=== PATIENT | female | born 1950 | race Caucasian/White ===

== ENCOUNTER 2016-06-30 16:25 | Outpatient (RCR) | payer OTHER, MEDICARE ==
--- OUTSIDE RECORDS SUMMARY | 2016-06-02 09:43 | XMS REPORT | Continuity of Care Document ---
Author Author [facility] Organization [facility] Address Unknown Phone Unavailable Care Team Providers Care Nuclear Supervising Operator Name Role Phone ABIMBOLA COURTNEY MD PCP Insurance Providers Payer Name Policy Number Subscriber Name Relationship [facility] [id number] Leah Jordan 18 Self / Same As Patient Advance Directives Directive Response Recorded Date/Time Advance Directives No 10/01/14 3:59pm Health Care Power of Project Intern No 10/01/14 3:59pm Organ Donor No 10/01/14 3:59pm Resuscitation Status Full Code 10/01/14 3:59pm Problems Medical Problems Problem Onset Date Status Hypoglycemia associated with diabetes Unknown Active Medications Medication Dose Route Sig Days/Qty Instructions Order Date Discontinued Date Status Pioglitazone HCl 30 Mg PO DAILY 09/03/07 10/01/14 Discontinued Levothyroxine Sodium (Levothroid) 100 Mcg PO DAILY 09/03/07 Active Metformin HCl (Glucophage) 500 Mg PO TWICE A DAY RESTART ON 11/26/1009/07 Active Hydrochlorothiazide 25 Mg PO DAILY 09/03/07 Active Aspirin 81 Mg PO DAILY 09/03/07 11/25/10 Discontinued Calcium Carbonate/Vitamin D3 1,200 Mg PO DAILY 11/24/10 Active Echinacea 380 Mg PO DAILY 11/24/10 02/23/11 Discontinued Insulin Determir 14 Unit SQ DAILY 11/24/10 Active Metoprolol Succinate 100 Mg PO DAILY 11/24/10 Active Atorvastatin Calcium 10 Mg PO DAILY 11/25/10 02/23/11 Discontinued Aspirin 325 Mg PO DAILY 11/25/10 02/23/11 Discontinued Aspirin 325 Mg PO DAILY 02/23/11 10/01/14 Discontinued Simvastatin 40 Mg PO DAILY 02/23/11 01/08/13 Discontinued Gabapentin 300 Mg PO TWICE A DAY 11/22/11 01/08/13 Discontinued Multivitamin 1 Each PO 01/08/13 Active Potassium Gluconate 99 Mg PO DAILY 01/08/13 Active Gabapentin Enacarbil 600 Mg PO 01/08/13 10/01/14 Discontinued Insulin Detemir 10 U SQ BEDTIME 10/01/14 Active Insulin Glulisine 8 U SQ BEFORE MEALS 10/01/14 Active Social History Social History Problem Response Recorded Date/Time Alcohol Use Rarely Uses 10/01/2014 3:59pm Recreational Drug Use No 10/01/2014 3:59pm Recent Foreign Travel No 10/01/2014 3:56pm Recent Infectious Disease Exposure No 10/01/2014 3:56pm Smoking Status Former Smoker 10/01/2014 3:59pm Query Response Start Date Stop Date Smoking Status Former Smoker Hospital Discharge Instructions No hospital discharge instructions. Plan of Care No plan of care. Functional Status No functional status results. Allergies, Adverse Reactions, Alerts Allergen Type Severity Reaction Status Last Updated Penicillins ([id number]) Allergy Severe RASH Active 09/03/07 Sulfa (Sulfonamide Antibiotics) ([id number]) Allergy Severe RASH Active Cephalexin Allergy Mild RASH Active 09/03/07 Immunizations No immunization records. Vital Signs Acute Vital Signs Vital Response Date/Time Temperature (Fahrenheit) 98 degrees F (97.6 - 99.5) Temperature (Calculated Celsius) 36.6696 degrees C (36.4 - 37.5) Pulse Rate (adult) 64 bpm (60 - 90) Respiratory Rate 18 bpm (12 - 24) O2 Sat by Pulse Oximetry 96 % (88 - 100) Blood Pressure 115/65 mm Hg Pain Pain Intensity 0 Height (Feet) 5 feet Height (Inches) 4 inches Height (Calculated Centimeters) 162.793659 cm Weight (Pounds) 167 pounds Weight (Calculated Kilograms) 75.014051 kilograms Calculated BMI 28.66 Results Laboratory Results Test Name Result Units Flags Reference Collection Date/Time Result Date/ Time Comments Glucometer 290 MG/DL H 70-110 10/01/2014 4:42pm 10/01/2014 4:50pm Procedures No known history of procedures. Encounters Encounter Location Date/Time Departed Emergency Room [facility] 10/01/14 3:39pm Recent Diagnosis
[~2016-06-30 16:25] MED LIST: ASP325T PO; ASP81CT PO; ASPI-983 PO; ASPI325T32 PO; ATN50T; ATOR10TA PO; ATRV10T PO; CALC-97 PO; ECHI400C3 PO; FENTANYL PATCH; GABA-488 PO; GABA-726 PO; GBPN300C PO; HCT25T PO; INSU100I5 SQ; INSU100V5 SQ; INSU100V7 SQ; KETO-22 PO; LVT.1T PO; MTF500T PO; MTP100TCR PO; MULT-974 PO; MULT1TAB63; PANT40TA2 PO; PGLT30T PO; POTA99TA18 PO; SIMV40TA4 PO; SUMA1TAB PO
== END 2016-07-06 16:56 | disposition home or self-care (01) ==
PROVIDERS: ATTEND Orthopaedic Surgery
DX: S42.301D Unspecified fracture of shaft of humerus, right arm, subsequent encounter for fracture with routine healing (principal); M25.642 Stiffness of left hand, not elsewhere classified

== ENCOUNTER → 2016-08-15 | Outpatient (CLI) | payer OTHER, MEDICARE ==
[~2016-08-15] MED LIST changes: +ATOR10TA66 PO; +HYDR25TA4 PO; +INSU100I29 SQ; +LEVO100T7 PO; +METO-274 PO; +PANT40TA3 PO; +SUCR1TAB PO
--- OUTSIDE RECORDS SUMMARY | 2016-08-15 07:36 | XMS REPORT | Continuity of Care Document ---
Author Author [facility] Organization [facility] Address Unknown Phone Unavailable Care Team Providers Care Anatomy And Physiology Instructor Name Role Phone ABIMBOLA COURTNEY MD PCP Insurance Providers Payer Name Policy Number Subscriber Name Relationship [facility] [id number] Leah Jordan 18 Self / Same As Patient Wps Medicare [id number] Leah Jordan 18 Self / Same As Patient Advance Directives Directive Response Recorded Date/Time Advance Directives No 06/08/16 7:15pm Health Care Power of Pond Tender No 06/08/16 7:15pm Organ Donor No 06/08/16 [...] more per day Avoid Alcohol, Caffeine, Spicy [place] and Acid foods. Drink 64 fluid oz [...] Type Severity Reaction Status Last Updated Penicillins ([id number]) Allergy Severe RASH Active 09/03/07 Sulfa (Sulfonamide Antibiotics) ([id number]) Allergy Severe RASH Active Cephalexin Allergy Mild RASH Active 09/03/07 Immunizations No immunization records. Vital Signs Acute Vital Signs Vital Response Date/Time Temperature (Fahrenheit) 96.5 degrees F (97.6 - 99.5) 06/11/2016 10:50am Temperature (Calculated Celsius) 35.02634 degrees C (36.4 - 37.5) 06/11/2016 8:00am [...] 4.00 inches 06/08/2016 7:15pm Height (Calculated Centimeters) 162.021479 cm 06/08/2016 7:15pm Weight (Pounds) 178 pounds 06/11/2016 6:00am Weight (Ounces) 9.0 oz 06/10/2016 5:39am Weight (Calculated Grams) 46699.443 gm 06/11/2016 6:00am Weight (Calculated Kilograms) 80.423491 kilograms 06/11/2016 6:00am Calculated BMI 28.7 06/08/2016 7:15pm Capillary Refill Capillary Refill Less Than 3 Seconds 06/10/2016 8:00pm Results Pending Laboratory Results Test Name Collection Date/Time Pending Microbiology Results Procedure Source Collection Date/Time Procedures Procedure Status Date Provider(s) Esophagogastroduodenoscopy (EGD) with dilation Completed 06/09/16 MACHELLE JAIN MD Encounters Encounter Location Arrival/Admit Date Discharge/Depart Date Attending Provider Discharged Inpatient [facility] [address] 06/08/16 6:56pm 10:56am MACHELLE JAIN MD Registered Recurring [facility] [address] 06/07/16 4:29pm DARY DUPONT MD
--- NOTE | 2016-08-15 13:19 | ECHOCARDIOGRAPHY REPORT ---
PROCEDURE PHYSICIAN: MADISYN JACOBO DATE OF PROCEDURE: 08/15/2016 TWO DIMENSIONAL ECHOCARDIOGRAM REPORT PRIMARY PHYSICIAN: OTHER PHYSICIAN: REFERRING PHYSICIAN: Dr. Abel ORDERING PHYSICIAN: INDICATION FOR THE PROCEDURE: 1. Aortic valve stenosis. 2. Coronary artery disease. MEASUREMENTS DERIVED VALUES LV DIAMETER (LAX) NORMALS NORMALS Diastolic 3.8 (3.6-5.2) Eject. Fract. 60% (60%+/-6%) Systolic (2.3-3.9) Diastolic Vol. % Shortening (0.22-0.42) Systolic Vol. Aortic Root IVS THICKNESS Diastolic 0.8 (0.6-1.1) LVPW THICKNESS Diastolic 1.1 (0.6-1.1) LA DIAMETER Systolic 3 (2.1-3.7) FINDINGS: 1. Technical quality is good. 2. The left ventricle is normal in size with normal contractility. Systolic function appeared to be normal. Estimated ejection fraction 60%. 3. The left atrium is normal in size. No clot or thrombus were seen within the left atrium. 4. The right atrium and right ventricle are normal in size. No clot or thrombus were seen within the right side. 5. Mitral valve is calcified with mild mitral regurgitation noted by color Doppler flow. No mitral valve prolapse. No mitral valve stenosis. 6. Aortic valve is heavily calcified. Doppler across the aortic valve estimated the peak gradient of 51 mmHg, mean gradient of 30 mmHg. Calculated valve area of 1.3 sq cm, which is moderate aortic valve stenosis. Some deterioration compared to the study of July 2015. 7. Tricuspid valve is normal in morphology with mild tricuspid regurgitation noted by color Doppler flow. Doppler across tricuspid valve estimated pulmonary artery pressure of 25+ right atrial pressure. 8. Pulmonic valve is functioning normally. 9. No pericardial effusion. IN CONCLUSION: 1. Normal left ventricular size and systolic function. Estimated ejection fraction 60%. 2. Moderate aortic valve stenosis, deterioration compared to the study of July 2015. 3. Mild mitral and tricuspid regurgitation. 4. Estimated pulmonary artery pressure of 35 mmHg. Job ID: [id number] Dictated Date: 08/15/2016 11:25:31 Jive Developer Date: 08/15/2016 13:15:48 / isiah
== END ==
LOC: CARD 07:31
PROVIDERS: ATTEND Physician Assistant
DX: I35.0 Nonrheumatic aortic (valve) stenosis (principal); I25.10 Atherosclerotic heart disease of native coronary artery without angina pectoris; I65.23 Occlusion and stenosis of bilateral carotid arteries; K21.9 Gastro-esophageal reflux disease without esophagitis
CPT/HCPCS: 93306

== ENCOUNTER 2016-09-30 16:33 | Outpatient (RCR) | payer OTHER, MEDICARE ==
--- OUTSIDE RECORDS SUMMARY | 2016-07-07 09:17 | XMS REPORT | Continuity of Care Document ---
Author Author [facility] Organization [facility] Address Unknown Phone Unavailable Care Team Providers Care Science Professor Name Role Phone ABIMBOLA COURTNEY MD PCP Insurance Providers Payer Name Policy Number Subscriber Name Relationship [facility] [id number] Leah Jordan 18 Self / Same As Patient Wps Medicare [id number] Leah Jordan 18 Self / Same As Patient Advance Directives Directive Response Recorded Date/Time Advance Directives No 06/08/16 7:15pm Health Care Power of Nuclear Medicine Supervisor No 06/08/16 7:15pm Organ Donor No 06/08/16 7:15pm Resuscitation Status Full Code 06/08/16 7:15pm Problems Active Problems Medical Problem Onset Date Status Hypoglycemia associated with diabetes Unknown Acute Medications Current Home Medications Medication Dose Units Route Directions Days/Qty Instructions Start Date Levothyroxine Sodium (Levothroid) 100 Mcg 100 Mcg Oral Daily Metformin Hcl (Glucophage) 500 Mg 500 Mg Oral Twice A Day 09/03/07 Hydrochlorothiazide 25 Mg 25 Mg Oral Daily 09/03/07 Insulin Determir 100 Unit/1 Ml 12 Unit Sub-Q Daily 11/24/10 Metoprolol Succinate 100 Mg 100 Mg Oral Bedtime 11/24/10 Multivitamin 1 Each 1 Tab Oral Daily 01/08/13 Insulin Detemir 100 U/Ml 10 Units Sub-Q Bedtime 10/01/14 Insulin Glulisine 100 U/Ml 4 Units Sub-Q Before Meals 10/01/14 Atorvastatin Calcium 10 Mg 10 Mg Oral Bedtime 06/09/16 Gabapentin 300 Mg 300 Mg Oral Three Times A Day 06/09/16 Pantoprazole Sodium 40 Mg 40 Mg Oral Daily 90 06/10/16 Past Home Medications Medication Directions Ordered Status Pioglitazone Hcl 30 Mg Tablet, 30 Mg Oral Daily 09/03/07 Discontinued Aspirin 81 Mg Tablet, 81 Mg Oral Daily 09/03/07 Discontinued Calcium Carbonate/Vitamin D3 1 Each Tablet, 1200 Mg Oral Daily 11/24/10 Discontinued Echinacea 400 Mg Capsule, 380 Mg Oral Daily 11/24/10 Discontinued Atorvastatin Calcium 10 Mg Tablet, 10 Mg Oral Daily 11/25/10 Discontinued Aspirin 325 Mg Tab, 325 Mg Oral Daily 11/25/10 Discontinued Aspirin 325 Mg Tabec, 325 Mg Oral Daily 02/23/11 Discontinued Simvastatin 40 Mg Tablet, 40 Mg Oral Daily 02/23/11 Discontinued Gabapentin 300 Mg Cap, 300 Mg Oral Twice A Day 11/22/11 Discontinued Potassium Gluconate 99 Mg Tablet.er, 99 Mg Oral Daily 01/08/13 Discontinued Gabapentin Enacarbil 600 Mg Tab.sr.24h, 600 Mg Oral 01/08/13 Discontinued Aspirin 81 Mg Tablet.dr, 81 Mg Oral Daily 06/09/16 Discontinued Social History Social History Problem Response Recorded Date/Time Alcohol Use Rarely Uses 10/01/2014 3:59pm Recreational Drug Use No 10/01/2014 3:59pm Recent Foreign Travel No 06/08/2016 7:15pm Recent Infectious Disease Exposure No 06/08/2016 7:15pm Hospitalization with Isolation Denies 06/11/2016 12:21pm Smoking Status Former Smoker 06/08/2016 7:15pm Recent Hopitalizations Y 1990 06/08/2016 7:15pm Hospitalization with Isolation Denies 06/11/2016 12:21pm Query Response Start Date Stop Date Smoking Status Former Smoker Hospital Discharge Instructions Patient Instructions Physician Instructions New, Converted, or Re-Newed RX: RX on Chart Follow Up PRN Activity as tolerated add protonix 40mg daily High Fiber Diet 25g or more per day Avoid Alcohol, Caffeine, Spicy [place] and Acid foods. Drink 64 fluid oz or more of fluids per day. Symptoms to Report: Fever over 101 degree F, Nausea/Vomiting If any problems/questions: Contact your physician or go to Emergency Room Plan of Care Discharge Date 06/11/16 10:56am Disposition 01 HOME, SELF-CARE Instructions/Education Provided Gastric Ulcer (DC) Prescriptions See Medication Section Care Plan and Goals See Discharge Instructions Section Functional Status Query Response Date Recorded Patient Orientation Person Place Time Situation June 11, 2016 12:21pm Comprehension Ability Understands Concepts June 10, 2016 8:00pm Allergies, Adverse Reactions, Alerts Allergen Type Severity Reaction Status Last Updated Penicillins ([id number]) Allergy Severe RASH Active 09/03/07 Sulfa (Sulfonamide Antibiotics) ([id number]) Allergy Severe RASH Active Cephalexin Allergy Mild RASH Active 09/03/07 Immunizations No immunization records. Vital Signs Acute Vital Signs Vital Response Date/Time Temperature (Fahrenheit) 96.5 degrees F (97.6 - 99.5) 06/11/2016 10:50am Temperature (Calculated Celsius) 35.35909 degrees C (36.4 - 37.5) 06/11/2016 8:00am Temperature Source Tympanic 06/11/2016 10:50am Pulse Rate (adult) 91 bpm (60 - 90) 06/11/2016 10:50am Respiratory Rate 18 bpm (12 - 24) 06/11/2016 10:50am O2 Sat by Pulse Oximetry 99 % (88 - 100) 06/11/2016 10:50am Blood Pressure 111/60 mm Hg 06/11/2016 10:50am Blood Pressure Mean 77 mm Hg 06/11/2016 8:00am Pain Numeric Pain Scale 0-No Pain 06/11/2016 10:50am Height (Feet) 5 feet 06/08/2016 7:15pm Height (Inches) 4.00 inches 06/08/2016 7:15pm Height (Calculated Centimeters) 162.150686 cm 06/08/2016 7:15pm Weight (Pounds) 178 pounds 06/11/2016 6:00am Weight (Ounces) 9.0 oz 06/10/2016 5:39am Weight (Calculated Grams) 80296.443 gm 06/11/2016 6:00am Weight (Calculated Kilograms) 80.170387 kilograms 06/11/2016 6:00am Calculated BMI 28.7 06/08/2016 7:15pm Capillary Refill Capillary Refill Less Than 3 Seconds 06/10/2016 8:00pm Results Pending Laboratory Results Test Name Collection Date/Time Pending Microbiology Results Procedure Source Collection Date/Time Procedures Procedure Status Date Provider(s) Esophagogastroduodenoscopy (EGD) with dilation Completed 06/09/16 MACHELLE JAIN MD Encounters Encounter Location Arrival/Admit Date Discharge/Depart Date Attending Provider Discharged Inpatient [facility] 06/08/16 6:56pm 10:56am MACHELLE JAIN MD Registered Recurring [facility] 06/07/16 4:29pm DARY DUPONT MD
[~2016-09-30 16:33] MED LIST changes: -ATOR10TA66 PO; -HYDR25TA4 PO; -INSU100I29 SQ; -LEVO100T7 PO; -METO-274 PO; -PANT40TA3 PO; -SUCR1TAB PO
[2016-10-03] MEDS ORDERED: SUCR1TAB PO (14:35)
[2016-10-03] MEDS ORDERED: LEVO100T7 PO (14:35)
[2016-10-03] MEDS ORDERED: HYDR25TA4 PO (14:35)
[2016-10-03] MEDS ORDERED: PANT40TA3 PO (14:35)
[2016-10-03] MEDS ORDERED: INSU100I29 SQ (14:35)
[2016-10-03] MEDS ORDERED: ATOR10TA66 PO (14:35)
[2016-10-03] MEDS ORDERED: METO-274 PO (14:35)
== END 2016-10-05 | disposition home or self-care (01) ==
PROVIDERS: ATTEND Orthopaedic Surgery
DX: S42.301D Unspecified fracture of shaft of humerus, right arm, subsequent encounter for fracture with routine healing (principal); M25.642 Stiffness of left hand, not elsewhere classified

== ENCOUNTER 2016-10-03 06:02 | Inpatient (IN) | payer OTHER, MEDICARE ==
[~2016-10-03] VITALS: Ht 162.6 cm; Wt 74.6 kg
[2016-10-03 06:30] LABS: BASOPHILS % (AUTO) 0 % (0-10); EOSINOPHILS # (AUTO) 0.1 10^3/uL (0.0-0.3); EOSINOPHILS % (AUTO) 1 % (0-10); LYMPHOCYTES # (AUTO) 2.3 X 10^3 (1.0-4.0); LYMPHOCYTES % (AUTO) 24 % (12-44); MEAN CORPUSCULAR HEMOGLOBIN 26 PG (25-34); MEAN CORPUSCULAR HGB CONC 33 G/DL (32-36); MEAN CORPUSCULAR VOLUME 78 FL (80-99); MEAN PLATELET VOLUME 9.5 FL (7.4-10.4); MONOCYTES # (AUTO) 0.7 X 10^3 (0.0-1.0); MONOCYTES % (AUTO) 8 % (0-12); NEUTROPHILS # (AUTO) 6.4 X 10^3 (1.8-7.8); NEUTROPHILS % (AUTO) 68 % (42-75); PLATELET COUNT 377 10^3/uL (130-400); RED BLOOD COUNT 4.75 10^6/uL (4.35-5.85); RED CELL DISTRIBUTION WIDTH 20.5 % (10.0-14.5); WHITE BLOOD COUNT 9.5 10^3/uL (4.3-11.0)
[2016-10-03] MEDS: LACTATED RINGERS 1,000 ML IV SCH ×2 (06:34→08:30)
--- NOTE | 2016-10-03 06:38 | ED General ---
General Chief Complaint: Glucose Problems Stated Complaint: BLOOD SUGAR Nursing Triage Note: PT TO ED 6 W/ C/O WEAKNESS, INCREASED CONFUSION X2-3 WKS. PT REPORTS SHE HAS NOT FELT WELL ET HAS BEEN UNABLE TO SEE PCP SHE STATES SHE CANNOT TAKE TIME OFF FROM WORK "EVERYONE'S BEEN GONE." STATES SHE'S UNSURE IF SHE IS EATING OR DRINKING ENOUGH, TAKING HER MEDICATION LIKE SHE SHOULD. PT VERY TEARFUL Nursing Sepsis Screen: No Definite Risk Source of Information: Patient Exam Limitations: No Limitations History of Present Illness Time Seen by Provider: 06:32 Initial Comments This 66-year-old white female presents with confusion and weakness that has been progressive over the last 2-3 weeks. The patient denies fever, chills, dysuria, productive cough, headache or stiff neck, or lateralizing or localizing neurologic complaints. However this diabetic and has felt confused and has had to search for words. 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 The patient has had a history of coronary artery disease. She denies chest pain or palpitations with her present illness. The patient believes that her fluid and caloric intake may have been impaired during the last 2-3 weeks due to her heavy work schedule. Allergies and Home Medications Allergies Coded Allergies: Penicillins (Unverified Allergy, Severe, RASH, 09/03/07) pt reports generalized edema to the point pt can't make a fist Sulfa (Sulfonamide Antibiotics) (Unverified Allergy, Severe, RASH, 09/03/07) severe generalized edema cephalexin (Unverified Allergy, Mild, RASH, 09/03/07) Home Medications Atorvastatin Calcium 10 Mg Tablet, 10 MG PO HS, (Reported) Gabapentin 300 Mg Capsule, 300 MG PO TID, (Reported) Hydrochlorothiazide 25 Mg Tablet, 25 MG PO DAILY, (Reported) Insulin Detemir 100 U/Ml Vial, 10 UNITS SQ HS, (Reported) Insulin Determir 100 Unit/1 Ml Insuln.pen, 12 UNIT SQ DAILY, (Reported) Insulin Glulisine 100 U/Ml Vial, 4 UNITS SQ AC, (Reported) Levothyroxine Sodium 100 Mcg Tablet, 100 MCG PO DAILY, (Reported) Metformin Hcl 500 Mg Tablet, 500 MG PO BID, (Reported) Metoprolol Succinate 100 Mg Tab.sr.24h, 100 MG PO HS, (Reported) Multivitamin 1 Each Tablet, 1 TAB PO DAILY, (Reported) Pantoprazole Sodium 40 Mg Tablet.dr, 40 MG PO DAILY, #90 Prescribed by: MACHELLE JAIN on 06/10/16 1252 Constitutional: No chills EENTM: blurred vision Respiratory: No cough Cardiovascular: No chest pain, No palpitations Gastrointestinal: No abdominal pain, No nausea, No vomiting Genitourinary: No dysuria, No frequency : No Musculoskeletal: No back pain Skin: No rash Psychiatric/Neurological: No Symptoms Reported Hematologic/Lymphatic: No Symptoms Reported Immunological/Allergic: no symptoms reported Past Sygwrfp-Emjgpv-Zygtie Hx Patient Social History Alcohol Use: Denies Use Recreational Drug Use: No Smoking Status: Former Smoker Recent Foreign Travel: No Contact w/Someone Who Travel: No Recent Infectious Disease Expo: No Recent Hopitalizations: Yes (1989) Immunizations Up To Date Tetanus Booster (TDap): Less than 5yrs PED Vaccines UTD: No Date of Influenza Vaccine: May 02, 2016 Surgeries HX Surgeries: Yes (appendectomy and gallbladder, GASTROPLASTY) Surgeries: Appendectomy, Coronary Stent, Gallbladder, Orthopedic Respiratory Hx Respiratory Disorders: No Cardiovascular Hx Cardiac Disorders: Yes (CARDIOVASCULAR DZ, STENTS) Cardiac Disorders: Coronary Artery Disease, Heart Murmur, Hypertension Neurological Hx Neurological Disorders: No Reproductive System Hx Reproductive Disorders: No Genitourinary Hx Genitourinary Disorders: No Gastrointestinal Hx Gastrointestinal Disorders: Yes Gastrointestinal Disorders: Gastroesophageal Reflux Musculoskeletal Hx Musculoskeletal Disorders: No Endocrine Hx Endocrine Disorders: Yes Endocrine Disorders: Diabetes, Insulin dep HEENT HX ENT Disorders: Yes (LEFT EYE REMOVED) Cancer Hx Cancer: No Psychosocial Hx Psychiatric Problems: No Integumentary HX Skin/Integumentary Disorder: No Blood Transfusions Hx Blood Disorders: No Reviewed Nursing Assessment Reviewed/Agree w Nursing PMH: Yes Family Medical History Family Medial History: Breast lump 19 MOTHER, Onset:Unknown Cardiovascular disease 19 FATHER, , Age:88, Onset:Unknown FH: hypothyroidism 19 MOTHER, Onset:Unknown FH: renal failure 19 MOTHER, Onset:Unknown Heart murmur 19 MOTHER, Onset:Unknown Prostatitis 19 FATHER, , Age:88, Onset:Unknown Physical Exam Vital Signs Vital Sign - Last 12Hours 10/03/16 06:02 Temp 97.1 Pulse 138 Resp 20 B/P (MAP) 128/80 Pulse Ox 97 O2 Delivery Room Air Capillary Refill : Less Than 3 Seconds General Appearance: Anxious, Mild Distress Eyes: Bilateral Eye Other (patient is wearing a patch over her left eye) HEENT: Pharynx Normal Neck: Full Range of Motion, Normal Inspection Respiratory: Chest Non Tender, Lungs Clear, Normal Breath Sounds Cardiovascular: Regular Rate, Rhythm, No Edema, No Murmur Gastrointestinal: Normal Bowel Sounds, Non Tender, Soft Extremity: Normal Inspection, Normal Range of Motion Neurologic/Psychiatric: Oriented x3, No Motor/Sensory Deficits, property man II-XII Norm as Tested, Other (the patient's speech is somewhat slow and the patient missed spoke several words on history taking. The patient did not have slurred speech.) Skin: Normal Color, Warm/Dry Progress/Results/Core Measures Results/Orders Lab Results Laboratory Tests Test 10/03/16 06:15 10/03/16 06:16 Range/Units White Blood Count 9.5 4.3-11.0 10^3/uL Red Blood Count 4.75 4.35-5.85 10^6/uL Hemoglobin 12.2 11.5-16.0 G/DL Hematocrit 37 35-52 % Mean Corpuscular Volume 78 L 80-99 FL Mean Corpuscular Hemoglobin 26 25-34 PG Mean Corpuscular Hemoglobin Concent 33 32-36 G/DL Red Cell Distribution Width 20.5 H 10.0-14.5 % Platelet Count 377 130-400 10^3/uL Mean Platelet Volume 9.5 7.4-10.4 FL Neutrophils (%) (Auto) 68 42-75 % Lymphocytes (%) (Auto) 24 12-44 % Monocytes (%) (Auto) 8 0-12 % Eosinophils (%) (Auto) 1 0-10 % Basophils (%) (Auto) 0 0-10 % Neutrophils # (Auto) 6.4 1.8-7.8 X 10^3 Lymphocytes # (Auto) 2.3 1.0-4.0 X 10^3 Monocytes # (Auto) 0.7 0.0-1.0 X 10^3 Eosinophils # (Auto) 0.1 0.0-0.3 10^3/uL Basophils # (Auto) 0.0 0.0-0.1 10^3/uL Sodium Level 136 135-145 MMOL/L Potassium Level 3.2 L 3.6-5.0 MMOL/L Chloride Level 97 L 98-107 MMOL/L Carbon Dioxide Level 21 21-32 MMOL/L Anion Gap 18 H 5-14 MMOL/L Blood Urea Nitrogen 18 7-18 MG/DL Creatinine 0.99 0.60-1.30 MG/DL Estimat Glomerular Filtration Rate 56 BUN/Creatinine Ratio 18 Glucose Level 466 *H 70-105 MG/DL Hemoglobin A1c 8.9 H 4.5-6.2 % Calcium Level 9.6 8.5-10.1 MG/DL Total Bilirubin 0.5 0.1-1.0 MG/DL Aspartate Amino Transf (AST/SGOT) 15 5-34 U/L Alanine Aminotransferase (ALT/SGPT) 10 0-55 U/L Alkaline Phosphatase 80 40-136 U/L Troponin I < 0.30 <0.30 NG/ML Total Protein 7.3 6.4-8.2 G/DL Albumin 4.1 3.2-4.5 G/DL Lipase < 4 L 8-78 U/L Glucometer 438 *H 70-110 MG/DL My Orders Orders - ARETHA CONCEPCION MD Arterial Blood Gas (10/03/16 06:21) Cbc With Automated Diff (10/03/16 06:21) Comprehensive Metabolic Panel (10/03/16 06:21) Lipase (10/03/16 06:21) Urinalysis (10/03/16 06:21) Chest 1 View, Ap/Pa Only (10/03/16 06:21) Ekg Tracing (10/03/16 06:21) Troponin I (10/03/16 06:21) Hemoglobin A1c (10/03/16 06:21) Ct Head Wo (10/03/16 06:21) Lactated Ringers (Lr 1000 Ml Iv Solution (10/03/16 06:30) Ondansetron Injection (Zofran Injectio (10/03/16 06:45) Ondansetron Injection (Zofran Injectio (10/03/16 07:00) Ns Iv 1000 Ml (Sodium Chloride 0.9%) (10/03/16 07:15) Insulin Regular Tpn/Drip Only (Humulin R (10/03/16 07:15) Lorazepam Injection (Ativan Injection) (10/03/16 07:30) Medications Given in ED Current Medications Medications Dose Ordered Sig/Rhianna Route Start Time Stop Time Status Last Admin Dose Admin Ondansetron HCl 4 mg STK-MED ONCE .ROUTE 10/03/16 06:45 10/03/16 06:47 DC 10/03/16 06:50 4 MG Vital Signs/I&O Vital Sign - Last 12Hours 10/03/16 06:02 Temp 97.1 Pulse 138 Resp 20 B/P (MAP) 128/80 Pulse Ox 97 O2 Delivery Room Air Blood Pressure Mean: 96 Point of Care Testing Finger Stick Blood Glucose: 438 Blood Glucose Action Taken: RN and Dr notified Progress Note : Time: 06:40 Progress Note The patient's bedside glucose was approximately 425. A liter of lactated Ringer 's as a bolus of 500 mL an hour was established. The patient's EKG demonstrated sinus tachycardia but no acute current of injury. 735 a.m. The patient is improved with IV fluids. Her resting tachycardia which had been 125 is now down to a little over 100. The patient is more awake and alert. I initiated an insulin drip per protocol. Patient received IV Zofran for nausea. I gave the patient Ativan as she is quite tearful and anxious. Dr. Duke was kind enough to admit the patient to telemetry stepdown. Drs. Zelaya and Tonia have been consulted. I'm awaiting the patient's ABGs, CT of the head report, and her response to the fluids and insulin drip. I ordered an additional 1/2 L of normal saline in the unit over the next 3 hours. I'll ask for hourly glucoses bedside determinations until the patient's hyperglycemia is resolved. Critical Care Note Critical Care Start Time: 06:45 Stop Time: 07:30 Total Time (minutes) The patient was tachycardic and confused upon presentation. Patient had her hyperglycemia acutely treated with fluids and an insulin drip. Initial laboratory radiographic evaluation demonstrated a normal lipase and unremarkable chest x-ray. Patient's EKG demonstrated sinus tach and she had a normal troponin. With IV fluid bolus the patient's tachycardia began to [place] while in the emergency department. Patient was admitted on an insulin drip to cardiac stepdown with telemetry. Departure Communication Time/Spoke to Admitting Phy: 07:[address] Duke Time/Spoke to Consulting Physi: 07:41 Communication/Consulting Drs. Zelaya and Tonia. Family Conversation The patient has had a number of recent stresses in her life w the of her , a fractured arm, and UGI bleed. She is very tearful and anxious. I believe she may have sig depression/anxiety that needs to be addressed. Impression Impression: Primary Impression: Diabetes mellitus Qualified Codes: E10.65 - Type 1 diabetes mellitus with hyperglycemia Additional Impression: Hyperglycemia Disposition: ADMITTED INPATIENT Condition: Improved Decision to Admit Reason: Admit from ER (General) Decision to Admit/Date: Oct 03, 2016 Time/Decision to Admit Time: 07:45 Departure-Patient Inst. Referrals: DARY DUPONT MD (PCP) Primary Care Physician ARETHA CONCEPCION MD Oct 03, 2016 06:38
[2016-10-03 06:45] LABS: ALANINE AMINOTRANSFERASE 10 U/L (0-55); ALBUMIN 4.1 G/DL (3.2-4.5); ANION GAP 18 MMOL/L (5-14); ASPARTATE AMINO TRANSFERASE 15 U/L (5-34); BILIRUBIN,TOTAL 0.5 MG/DL (0.1-1.0); BLOOD UREA NITROGEN 18 MG/DL (7-18); BUN/CREATININE RATIO 18; CALCIUM 9.6 MG/DL (8.5-10.1); CARBON DIOXIDE 21 MMOL/L (21-32); CHLORIDE 97 MMOL/L (98-107); CREATININE SERUM 0.99 MG/DL (0.60-1.30); GFR ESTIMATED 56; LIPASE < 4 U/L (8-78); POTASSIUM 3.2 MMOL/L (3.6-5.0); SODIUM 136 MMOL/L (135-145); TOTAL PROTEIN 7.3 G/DL (6.4-8.2)
[2016-10-03] MEDS ORDERED: ONDANSETRON 4 MG/2 ML (SDV) Z0FRAN ONE (06:45)
[2016-10-03 06:50] LABS: GLUCOSE 466 MG/DL (70-105)
[2016-10-03 06:51] LABS: TROPONIN I < 0.30 NG/ML (<0.30)
[2016-10-03] MEDS ORDERED: ONDANSETRON 4 MG/2 ML (SDV) Z0FRAN IVP ONE (07:00)
--- NOTE | 2016-10-03 07:01 | Diagnostic Imaging Report ---
INDICATION: Weakness and confusion x3 weeks. TECHNIQUE: Single view chest 6:29 a.m. CORRELATION STUDY: 06/10/2016. FINDINGS: The heart size, mediastinal configuration and pulmonary vascularity are within normal limits. Calcification of the aortic arch. Lung ortega mildly hyperinflated but relatively clear. Partial visualization of the fusion hardware of the proximal left humerus. IMPRESSION: 1. Negative acute findings on portable chest. Dictated by: Dictated on workstation # [id number]
[2016-10-03] MEDS ORDERED: inSUlin REGULAR TPN/DRIP ONLY 250 UNITS in NORMAL SALINE 247.5 ML IV SCH (07:15)
[2016-10-03] MEDS ORDERED: LORazepam INJ 2 MG/ML (ATIVAN) VIAL IVP ONE (07:30)
[2016-10-03] MEDS: NS IV 1000 ML 1,000 ML IV SCH ×3 (07:50→10:26)
[2016-10-03 07:54] LABS: ABG BASE EXCESS 1.8 MMOL/L (-2.5-2.5); ABG HCO3 26 MMOL/L (23-27); ABG OXYGEN SATURATION 94 % (94-100); ABG PCO2 39 MMHG (35-45); ABG PH 7.43 (7.37-7.43); ABG PO2 65 MMHG (79-93); ABG TCO2 27.1 MMOL/L (21.0-31.0)
[2016-10-03 07:56] LABS: ALLENS TEST POSITIVE; PATIENT TEMP 97.2
[2016-10-03 09:05] VITALS: BP 153/84
[2016-10-03 09:23] LABS: BILIRUBIN,URINE NEGATIVE (NEGATIVE); KETONES,URINE 4+ (NEGATIVE); LEUKOCYTE ESTERASE ,URINE 1+ (NEGATIVE); NITRITE,URINE POSITIVE (NEGATIVE); PH,URINE 6 (5-9); PROTEIN,URINE NEGATIVE (NEGATIVE); UROBILINOGEN,URINE NORMAL (NORMAL)
[2016-10-03 09:31] LABS: SQUAMOUS EPITHELIAL CELL,UR RARE /HPF
--- NOTE | 2016-10-03 09:37 | Consultation-Cardiology ---
HPI-Cardiology Cardiology Consultation Date of Consultation 10/03/16 Date of Admission Indication: tachycardia HPI 66-year-old lady with history of hypertension, mild coronary artery disease, has been feeling more confused and tired, slower unusual. No focal deficit, has been having nausea and vomiting, increased urinary frequency, came into the emergency room for further evaluation. Noted to be tachycardic. She denied any chest pain, syncope or near syncopal episode, has been having mild chills. No pedal edema. Home Medications & Allergies Allergies: Coded Allergies: Penicillins (Unverified Allergy, Severe, RASH, 09/03/07) pt reports generalized edema to the point pt can't make a fist Sulfa (Sulfonamide Antibiotics) (Unverified Allergy, Severe, RASH, 09/03/07) severe generalized edema cephalexin (Unverified Allergy, Mild, RASH, 09/03/07) Home Medication List Reviewed: Yes JVA-Gepjsa-Xiqmkh Hx Patient Social History Alcohol Use: Denies Use Recreational Drug Use: No Smoking Status: Former Smoker Recent Foreign Travel: No Recent Infectious Disease Expo: No Recent Hopitalizations: Yes (1989) Immunizations Up To Date Tetanus Booster (TDap): Less than 5yrs Date of Influenza Vaccine: May 02, 2016 Past Medical History past medical history as discussed below Family Medical History Family History: 19 FATHER, , Age:88 Cardiovascular disease, Onset:Unknown Prostatitis, Onset:Unknown 19 MOTHER Breast lump, Onset:Unknown FH: hypothyroidism, Onset:Unknown FH: renal failure, Onset:Unknown Heart murmur, Onset:Unknown Constitutional: see HPI, malaise, weakness EENTM: see HPI Respiratory: no symptoms reported, see HPI, No cough, No dyspnea on exertion, No hemoptysis, No orthopnea, No phlegm, No short of breath, No stridor, No wheezing, No other Cardiovascular: see HPI, No chest pain, No edema, No Hx of Intervention, No palpitations, No syncope, No vascular heart diseas, No other Gastrointestinal: see HPI, diarrhea, nausea, vomiting Genitourinary: see HPI, frequency Musculoskeletal: see HPI Skin: see HPI Psychiatric/Neurological: No Symptoms Reported, See HPI, Weakness Reviewed Test Results Reviewed Test Results Lab Laboratory Tests Test 10/03/16 06:15 10/03/16 06:16 10/03/16 07:47 10/03/16 08:46 Range/Units White Blood Count 9.5 4.3-11.0 10^3/uL Red Blood Count 4.75 4.35-5.85 10^6/uL Hemoglobin 12.2 11.5-16.0 G/DL Hematocrit 37 35-52 % Mean Corpuscular Volume 78 L 80-99 FL Mean Corpuscular Hemoglobin 26 25-34 PG Mean Corpuscular Hemoglobin Concent 33 32-36 G/DL Red Cell Distribution Width 20.5 H 10.0-14.5 % Platelet Count 377 130-400 10^3/uL Mean Platelet Volume 9.5 7.4-10.4 FL Neutrophils (%) (Auto) 68 42-75 % Lymphocytes (%) (Auto) 24 12-44 % Monocytes (%) (Auto) 8 0-12 % Eosinophils (%) (Auto) 1 0-10 % Basophils (%) (Auto) 0 0-10 % Neutrophils # (Auto) 6.4 1.8-7.8 X 10^3 Lymphocytes # (Auto) 2.3 1.0-4.0 X 10^3 Monocytes # (Auto) 0.7 0.0-1.0 X 10^3 Eosinophils # (Auto) 0.1 0.0-0.3 10^3/uL Basophils # (Auto) 0.0 0.0-0.1 10^3/uL Sodium Level 136 135-145 MMOL/L Potassium Level 3.2 L 3.6-5.0 MMOL/L Chloride Level 97 L 98-107 MMOL/L Carbon Dioxide Level 21 21-32 MMOL/L Anion Gap 18 H 5-14 MMOL/L Blood Urea Nitrogen 18 7-18 MG/DL Creatinine 0.99 0.60-1.30 MG/DL Estimat Glomerular Filtration Rate 56 BUN/Creatinine Ratio 18 Glucose Level 466 *H 70-105 MG/DL Hemoglobin A1c 8.9 H 4.5-6.2 % Calcium Level 9.6 8.5-10.1 MG/DL Total Bilirubin 0.5 0.1-1.0 MG/DL Aspartate Amino Transf (AST/SGOT) 15 5-34 U/L Alanine Aminotransferase (ALT/SGPT) 10 0-55 U/L Alkaline Phosphatase 80 40-136 U/L Troponin I < 0.30 <0.30 NG/ML Total Protein 7.3 6.4-8.2 G/DL Albumin 4.1 3.2-4.5 G/DL Lipase < 4 L 8-78 U/L Glucometer 438 *H 330 H 70-110 MG/DL Blood Gas Puncture Site RIGHT RADIAL Blood Gas Patient Temperature 97.2 Arterial Blood pH 7.43 7.37-7.43 Arterial Blood Partial Pressure CO2 39 35-45 MMHG Arterial Blood Partial Pressure O2 65 L 79-93 MMHG Arterial Blood HCO3 26 23-27 MMOL/L Arterial Blood Total CO2 27.1 21.0-31.0 MMOL/L Arterial Blood Oxygen Saturation 94 94-100 % Arterial Blood Base Excess 1.8 -2.5-2.5 MMOL/L Lv Test POSITIVE Blood Gas Ventilator Setting NO Blood Gas Inspired Oxygen N/A Test 10/03/16 09:14 Range/Units Urine Color YELLOW Urine Clarity SLIGHTLY CLOUDY Urine pH 6 5-9 Urine Specific [place] 1.020 1.016-1.022 Urine Protein NEGATIVE NEGATIVE Urine Glucose (UA) 4+ H NEGATIVE Urine Ketones 4+ H NEGATIVE Urine Nitrite POSITIVE H NEGATIVE Urine Bilirubin NEGATIVE NEGATIVE Urine Urobilinogen NORMAL NORMAL MG/DL Urine Leukocyte Esterase 1+ H NEGATIVE Urine RBC (Auto) 2+ H NEGATIVE Urine RBC 0-2 /HPF Urine WBC 5-10 H /HPF Urine Squamous Epithelial Cells RARE /HPF Urine Crystals NONE /LPF Urine Bacteria MODERATE H /HPF Urine Casts NONE /LPF Urine Mucus NEGATIVE /LPF Urine Culture Indicated YES Physical Exam Vital Signs Vital Sign - Last 12Hours 10/03/16 06:02 Temp 97.1 Pulse 138 Resp 20 B/P (MAP) 128/80 Pulse Ox 97 O2 Delivery Room Air Capillary Refill : Less Than 3 Seconds General Appearance: No Apparent Distress, WD/WN Eyes: Bilateral Eye EOMI, Bilateral Eye Normal Inspection, Bilateral Eye PERRL HEENT: PERRL/EOMI, TMs Normal, Normal ENT Inspection, Pharynx Normal Neck: Full Range of Motion, Normal Inspection, Non Tender, Supple, Carotid Bruit Respiratory: Chest Non Tender, Lungs Clear, Normal Breath Sounds, No Accessory Muscle Use, No Respiratory Distress Cardiovascular: No Edema, No Gallop, No JVD, Normal Peripheral Pulses, Systolic Murmur, Tachycardia Gastrointestinal: Normal Bowel Sounds, No Organomegaly, No Pulsatile Mass, Non Tender, Soft Back: Normal Inspection, No CVA Tenderness, No Vertebral Tenderness Extremity: Normal Capillary Refill, Normal Inspection, Normal Range of Motion, Non Tender, No Calf Tenderness, No Pedal Edema Neurologic/Psychiatric: Alert, Oriented x3, No Motor/Sensory Deficits, Normal Mood/Affect Skin: Normal Color, Warm/Dry Lymphatic: No Adenopathy A/P-Cardiology Admission Diagnosis Change in mental status Sinus tachycardia Coronary artery disease Aortic valve stenosis Assessment/Plan Change in mental status, generalized weakness and lethargy, no focal deficit was noted. Questionable secondary to hypovolemia. Sinus tachycardia, palpitation, had history of palpitation in the past, could be due to hypovolemia, receiving IV fluid, has been on Toprol as an outpatient. Continue to monitor heart rate and electrolytes closely. Hyperglycemia, difficult to control, managed by primary care physician History of upper GI bleed with gastritis, H&H has been stable. Continue to monitor. Mild to moderate nonobstructive coronary artery disease per cardiac catheterization 2010, stress test in 2013 did not show ischemia or infarction, continue to monitor Moderate aortic valve stenosis, last echocardiogram was done in August 2016, left ventricle size and function was normal, ejection fraction 60 percent. Continue to monitor at this time. History of hyperlipidemia, hold statin for now and monitor lipids. Hypothyroidism, followed and managed by primary care physician. Ex-tobaccoism, encouraged to continue with smoking cessation. Mild bilateral nonobstructive carotid artery stenosis, continue to monitor MADISYN JACOBO MD Oct 03, 2016 09:37
[2016-10-03] MEDS ORDERED: CATHETER FLUSH 10 ML SYR IV PRN (09:45)
[2016-10-03] MEDS: inSUlin (REGULAR) HUMAN 1 UNIT/0.01 ML (CHARGE PER UNIT) SC SCH ×5 (10:25→22:36)
[2016-10-03] MEDS ORDERED: ACETAMINOPHEN 325 MG TABLET/CAPLET (TYLENOL) PO PRN (11:15)
[2016-10-03] MEDS ORDERED: LORazepam INJ 2 MG/ML (ATIVAN) VIAL IV PRN (11:15)
[2016-10-03] MEDS ORDERED: LORazepam 1 MG (ATIVAN) TAB PO PRN (11:15)
[2016-10-03] MEDS ORDERED: ONDANSETRON 4 MG (ZOFRAN) ORAL DISSOLVE TAB PO PRN (11:15)
--- NOTE | 2016-10-03 11:49 | History & Physical-Hospitalist ---
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 She was found to have blood sugar of 466 but normal bicarp so placed on insulin drip and CRX was negative so she has been placed in close monitoring placed on IV fluids and consulting pulmonary and operations systems specialist to further evaluate clinical scenario. Chart Review: No fever, Vitals stable, ABG shows 7.43/39/65, K+ 3.2 Dr. Douglas Review: Pt heartrate is 105-110. TSH has been added to labs. learning support aide: Pt sees Dr. Douglas. Pt is not DKA. Patient Interview: Pt states she is confused currently. Pt was told her blood work looked good. Pt states she feels run down. Pt denies pain currently. Pt states tachycardia earlier caused her some chest pain. Physical exam was stable. Scribed by Josef Rios under the direct supervision of Dr. Bautista. Source: patient Exam Limitations: no limitations Date Seen 10/03/16 Attending Physician Karolina Bautista Floyd R MD Referring Physician Date of Admission Oct 03, 2016 at 07:30 Home Medications & Allergies Home Medications Reviewed patient Home Medication Reconciliation Form Allergies Allergies Coded Allergies Penicillins (Unverified Allergy, Severe, RASH, 09/03/07) pt reports generalized edema to the point pt can't make a fist Sulfa (Sulfonamide Antibiotics) (Unverified Allergy, Severe, RASH, 09/03/07) severe generalized edema cephalexin (Unverified Allergy, Mild, RASH, 09/03/07) Past Iekqpyd-Aiihma-Wrbzuh Hx Patient Social History Marrital Status: Employed/Student: employed Alcohol Use: Denies Use Recreational Drug Use: No Smoking Status: Former Smoker Physical Abuse Screen: No (ex-spouse) Sexual Abuse: No Recent Foreign Travel: No Contact w/other who traveled: No Recent Hopitalizations: Yes (1989) Recent Infectious Disease Expo: No Immunizations Up To Date Tetanus Booster (TDap): Less than 5yrs Date of Influenza Vaccine: May 02, 2016 Surgeries HX Surgeries: Yes (appendectomy and gallbladder, GASTROPLASTY) Surgeries: Appendectomy, Coronary Stent, Gallbladder, Orthopedic Respiratory Hx Respiratory Disorders: No Cardiovascular Hx Cardiovascular Disorders: Yes (CARDIOVASCULAR DZ, STENTS) Cardiac Disorders: Coronary Artery Disease, Heart Murmur, Hypertension Neurological Hx Neurological Disorders: No Reproductive System Hx Reproductive Disorders: No Genitourinary Hx Genitourinary Disorders: No Gastrointestinal Hx Gastrointestinal Disorders: Yes Gastrointestinal Disorders: Gastroesophageal Reflux Musculoskeletal Hx Musculoskeletal Disorders: No Endocrine Hx Endocrine Disorders: Yes Endocrine Disorders: Diabetes, Insulin dep HEENT HX ENT Disorders: Yes (LEFT EYE REMOVED) Cancer Hx Cancer: No Psychosocial Hx Psychiatric Problems: No Integumentary HX Skin/Integumentary Disorder: No Blood Transfusions Hx Blood Disorders: No Reviewed Nursing Assessment Reviewed/Agree w Nursing PMH: Yes Family Medical History Family Hx: Breast lump 19 MOTHER, Onset:Unknown Cardiovascular disease 19 FATHER, , Age:88, Onset:Unknown FH: hypothyroidism 19 MOTHER, Onset:Unknown FH: renal failure 19 MOTHER, Onset:Unknown Heart murmur 19 MOTHER, Onset:Unknown Prostatitis 19 FATHER, , Age:88, Onset:Unknown Review of Systems Constitutional: see HPI, dizziness, malaise, weakness EENTM: no symptoms reported Respiratory: no symptoms reported Cardiovascular: no symptoms reported Gastrointestinal: no symptoms reported Genitourinary: decreased output Musculoskeletal: back pain Skin: no symptoms reported Psychiatric/Neurological: Anxiety, Depressed, Emotional Problems, Weakness Physical Exam Physical Exam Vital Signs Vital Sign - Last 12Hours 10/03/16 10/03/16 06:02 12:01 Temp 97.1 Pulse 138 Resp 20 B/P (MAP) 128/80 Pulse Ox 97 O2 Delivery Room Air O2 Flow Rate 2.00 Capillary Refill : Less Than 3 Seconds General Appearance: No Apparent Distress, WD/WN Eyes: Bilateral Eye Normal Inspection, Bilateral Eye PERRL HEENT: PERRL/EOMI (patch on left eye), Normal ENT Inspection, Pharynx Normal Neck: Full Range of Motion, Normal Inspection, Non Tender, Supple, Carotid Bruit Respiratory: Chest Non Tender, Lungs Clear, Normal Breath Sounds, No Accessory Muscle Use, No Respiratory Distress Cardiovascular: Regular Rate, Rhythm, No Edema, No Gallop, No JVD, No Murmur, Normal Peripheral Pulses Gastrointestinal: Normal Bowel Sounds, No Organomegaly, No Pulsatile Mass, Non Tender, Soft Back: Normal Inspection, No CVA Tenderness, No Vertebral Tenderness Extremity: Normal Capillary Refill, Normal Inspection, Normal Range of Motion, Non Tender, No Calf Tenderness, No Pedal Edema Neurologic/Psychiatric: Alert, Oriented x3, No Motor/Sensory Deficits, Normal Mood/Affect Skin: Normal Color, Warm/Dry Lymphatic: No Adenopathy Results Results/Procedures Lab Laboratory Tests 10/03/16 06:15 Assessment/Plan Admission Diagnosis Assessment: Dehydration with sxc-uw-pympywv diabetes Confusion Tachycardia Left eye deficit Hypertension Assessment and Plan Plan: IV fluid resuscitation Monitor closely Telemetry Prepare for discharge tomorrow as long as no deficits occur in the meantime Clinical Quality Measures DVT/VTE Risk/Contraindication: Risk Factor Score Per Nursin RFS Level Per Nursing on Admit: 4+=Very High KAROLINA BAUTISTA DO Oct 03, 2016 11:49
[2016-10-03] MEDS ORDERED: NS IV 1000 ML 1,000 ML IV SCH (12:15)
--- NOTE | 2016-10-03 12:52 | Pulmonary Consultation ---
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 she has not been laking diabetic meds as RX. She was found to have BS of 466 she was placed on insulin gtt. I am consulted for ICU management. Allergies and Home Medications Allergies Coded Allergies: Penicillins (Unverified Allergy, Severe, RASH, 09/03/07) pt reports generalized edema to the point pt can't make a fist Sulfa (Sulfonamide Antibiotics) (Unverified Allergy, Severe, RASH, 09/03/07) severe generalized edema cephalexin (Unverified Allergy, Mild, RASH, 09/03/07) Home Medications Atorvastatin Calcium 10 Mg Tablet, 10 MG PO HS, (Reported) Gabapentin 300 Mg Capsule, 300 MG PO TID, (Reported) Hydrochlorothiazide 25 Mg Tablet, 25 MG PO DAILY, (Reported) Insulin Detemir 100 U/Ml Vial, 10 UNITS SQ HS, (Reported) Insulin Determir 100 Unit/1 Ml Insuln.pen, 12 UNIT SQ DAILY, (Reported) Insulin Glulisine 100 U/Ml Vial, 4 UNITS SQ AC, (Reported) Levothyroxine Sodium 100 Mcg Tablet, 100 MCG PO DAILY, (Reported) Metformin Hcl 500 Mg Tablet, 500 MG PO BID, (Reported) Metoprolol Succinate 100 Mg Tab.sr.24h, 100 MG PO HS, (Reported) Multivitamin 1 Each Tablet, 1 TAB PO DAILY, (Reported) Pantoprazole Sodium 40 Mg Tablet.dr, 40 MG PO DAILY, #90 Prescribed by: MACHELLE JAIN on 06/10/16 1252 Past Vjmnalh-Nlbcgp-Pzvlsu Hx Patient Social History Alcohol Use: Denies Use Recreational Drug Use: No Smoking Status: Former Smoker Recent Foreign Travel: No Contact w/Someone Who Travel: No Recent Infectious Disease Expo: No Recent Hopitalizations: Yes (1989) Physical Abuse Screen: No (ex-spouse) Sexual Abuse: No Immunizations Up To Date Tetanus Booster (TDap): Less than 5yrs PED Vaccines UTD: No Date of Influenza Vaccine: May 02, 2016 Surgeries HX Surgeries: Yes (appendectomy and gallbladder, GASTROPLASTY) Surgeries: Appendectomy, Coronary Stent, Gallbladder, Orthopedic Respiratory Hx Respiratory Disorders: No Cardiovascular Hx Cardiac Disorders: Yes (CARDIOVASCULAR DZ, STENTS) Cardiac Disorders: Coronary Artery Disease, Heart Murmur, Hypertension Neurological Hx Neurological Disorders: No Reproductive System Hx Reproductive Disorders: No Genitourinary Hx Genitourinary Disorders: No Gastrointestinal Hx Gastrointestinal Disorders: Yes Gastrointestinal Disorders: Gastroesophageal Reflux Musculoskeletal Hx Musculoskeletal Disorders: No Endocrine Hx Endocrine Disorders: Yes Endocrine Disorders: Diabetes, Insulin dep HEENT HX ENT Disorders: Yes (LEFT EYE REMOVED) Cancer Hx Cancer: No Psychosocial Hx Psychiatric Problems: No Integumentary HX Skin/Integumentary Disorder: No Blood Transfusions Hx Blood Disorders: No Reviewed Nursing Assessment Reviewed/Agree w Nursing PMH: Yes Family Medical History Family Medial History: Breast lump 19 MOTHER, Onset:Unknown Cardiovascular disease 19 FATHER, , Age:88, Onset:Unknown FH: hypothyroidism 19 MOTHER, Onset:Unknown FH: renal failure 19 MOTHER, Onset:Unknown Heart murmur 19 MOTHER, Onset:Unknown Prostatitis 19 FATHER, , Age:88, Onset:Unknown Exam Exam Vital Signs Date Time Temp Pulse Resp B/P (MAP) Pulse Ox O2 Delivery O2 Flow Rate FiO2 10/03/16 12:01 2.00 10/03/16 12:00 96.4 10/03/16 09:24 98 10/03/16 09:15 97 Room Air 10/03/16 09:05 96.0 100 13 153/84 97 Room Air 10/03/16 08:53 97.6 90 14 96 10/03/16 06:02 97.1 138 20 128/80 97 Room Air General Appearance: No Apparent Distress, WD/WN HEENT: PERRL/EOMI (patch on left eye), Normal ENT Inspection, Pharynx Normal Neck: Full Range of Motion, Normal Inspection, Non Tender, Supple, Carotid Bruit Respiratory: Chest Non Tender, Lungs Clear, Normal Breath Sounds, No Accessory Muscle Use, No Respiratory Distress Cardiovascular: Regular Rate, Rhythm, No Edema, No Gallop, No JVD, No Murmur, Normal Peripheral Pulses Capillary Refill: Less Than 3 Seconds Extremity: Normal Capillary Refill, Normal Inspection, Normal Range of Motion, Non Tender, No Calf Tenderness, No Pedal Edema Neurologic/Psychiatric: Alert, Oriented x3, No Motor/Sensory Deficits, Normal Mood/Affect Skin: Normal Color, Warm/Dry Lymphatic: No Adenopathy Results Lab Laboratory Tests 10/03/16 06:15 Assessment/Plan Assessment/Plan Hyperglycemia with MS changes -Insulin Sinus tach with hx of aortic valve stenosis -Cardiology consulted History of upper GI bleed with gastritis Clinical Quality Measures DVT/VTE Risk/Contraindication: Risk Factor Score Per Nursin RFS Level Per Nursing on Admit: 4+=Very High MACY GARCIA DO Oct 03, 2016 12:52
[2016-10-03] MEDS ORDERED: PANT40TA3 PO (14:35)
[2016-10-03] MEDS ORDERED: SUCR1TAB PO (14:35)
[2016-10-03] MEDS ORDERED: METO-274 PO (14:35)
[2016-10-03] MEDS ORDERED: INSU100I29 SQ (14:35)
[2016-10-03] MEDS ORDERED: ATOR10TA66 PO (14:35)
[2016-10-03] MEDS ORDERED: HYDR25TA4 PO (14:35)
[2016-10-03] MEDS ORDERED: LEVO100T7 PO (14:35)
[2016-10-03 16:30] VITALS: BP 136/99
[2016-10-03] MEDS: ONDANSETRON 4 MG/2 ML (SDV) Z0FRAN IV PRN ×2 (19:02→22:36)
[2016-10-03 19:50] VITALS: BP 140/79
[2016-10-03] MEDS ORDERED: NS IV 1000 ML 1,000 ML ONE (22:29)
[2016-10-04] VITALS: BP 134/65
[2016-10-04] MEDS: inSUlin (REGULAR) HUMAN 1 UNIT/0.01 ML (CHARGE PER UNIT) SC SCH ×3 (01:12→07:04)
[2016-10-04 04:20] VITALS: BP 120/74
[2016-10-04 04:20] LABS: BASOPHILS % (AUTO) 0 % (0-10); EOSINOPHILS # (AUTO) 0.1 10^3/uL (0.0-0.3); EOSINOPHILS % (AUTO) 2 % (0-10); LYMPHOCYTES # (AUTO) 2.5 X 10^3 (1.0-4.0); LYMPHOCYTES % (AUTO) 33 % (12-44); MEAN CORPUSCULAR HEMOGLOBIN 25 PG (25-34); MEAN CORPUSCULAR HGB CONC 32 G/DL (32-36); MEAN CORPUSCULAR VOLUME 80 FL (80-99); MEAN PLATELET VOLUME 9.5 FL (7.4-10.4); MONOCYTES # (AUTO) 0.6 X 10^3 (0.0-1.0); MONOCYTES % (AUTO) 8 % (0-12); NEUTROPHILS # (AUTO) 4.3 X 10^3 (1.8-7.8); NEUTROPHILS % (AUTO) 57 % (42-75); PLATELET COUNT 307 10^3/uL (130-400); RED BLOOD COUNT 3.97 10^6/uL (4.35-5.85); RED CELL DISTRIBUTION WIDTH 20.3 % (10.0-14.5); WHITE BLOOD COUNT 7.6 10^3/uL (4.3-11.0)
[2016-10-04 04:37] LABS: ALANINE AMINOTRANSFERASE 8 U/L (0-55); ALBUMIN 3.2 G/DL (3.2-4.5); ANION GAP 10 MMOL/L (5-14); ASPARTATE AMINO TRANSFERASE 17 U/L (5-34); BILIRUBIN,TOTAL 0.3 MG/DL (0.1-1.0); BLOOD UREA NITROGEN 8 MG/DL (7-18); BUN/CREATININE RATIO 13; CALCIUM 7.9 MG/DL (8.5-10.1); CARBON DIOXIDE 24 MMOL/L (21-32); CHLORIDE 105 MMOL/L (98-107); CREATININE SERUM 0.62 MG/DL (0.60-1.30); GFR ESTIMATED > 60; GLUCOSE 117 MG/DL (70-105); POTASSIUM 2.8 MMOL/L (3.6-5.0); SODIUM 139 MMOL/L (135-145); TOTAL PROTEIN 5.4 G/DL (6.4-8.2)
[2016-10-04 08:00] VITALS: BP 150/81
--- NOTE | 2016-10-04 08:09 | Cardiology Progress Note ---
Subjective Subjective/Events-last exam Patient is in bed, still not feeling back to normal but overall better, mild chest pain on and off Review of Systems General: No Chills, No Night Sweats, No Fatigue, No Malaise, No Appetite, No Other HEENT: No Head Aches, No Visual Changes, No Eye Pain, No Ear Pain, No Dysphasia , No Sinus Congestion, No Post Nasal Drip, No Sore Throat, No Other Pulmonary: No Dyspnea, No Cough, No Pleuritic Chest Pain, No Other Cardiovascular: Chest Pain, No: Edema, Lt Headedness, Orthopnea, Other, Palpitations, Paroxysmal Noc. Dyspnea Objective-Cardiology Exam Last Set of Vital Signs Vital Signs Capillary Refill : Less Than 3 Seconds Vital Signs Date Time Temp Pulse Resp B/P (MAP) Pulse Ox O2 Delivery O2 Flow Rate FiO2 10/04/16 04:20 98.8 73 15 120/74 97 Nasal Cannula 2.00 I&O Bad tableGeneral: Alert, Oriented X3, Cooperative HEENT: Atraumatic, PERRLA Neck: Supple, No JVD, No Thyromegaly Lungs: Clear to Auscultation, Normal Air Movement Heart: Regular Rate, Normal S1, Normal S2, Other ( murmur) Abdomen: Normal Bowel Sounds, Soft, No Tenderness, No Hepatosplenomegaly, No Masses Extremities: No Clubbing, No Cyanosis, No Edema, Normal Pulses, No Tenderness/ Swelling Skin: No Rashes, No Breakdown, No Significant Lesion Neuro: Normal Gait, Normal Speech, Strength at 5/5 X4 Ext, Normal Tone, Sensation Intact Psych/Mental Status: Mental Status NL, Mood NL Results Lab Laboratory Tests 10/04/16 03:37 A/P-Cardiology Admission Diagnosis Change in mental status Sinus tachycardia Coronary artery disease Aortic valve stenosis Assessment/Plan Change in mental status, generalized weakness and lethargy, slight improvement, CT report is pending Sinus tachycardia, palpitation, had history of palpitation in the past, could be due to hypovolemia, receiving IV fluid, has been on Toprol as an outpatient, better today, continue to monitor Hyperglycemia, DM, better control today, managed by primary care physician Hypokalemia, replace and monitor History of upper GI bleed with gastritis, H&H has been stable. Continue to monitor. Chest pain, non specific etiology, workup has been negative in the past, planning for stress test as an outpatient Mild to moderate nonobstructive coronary artery disease per cardiac catheterization 2010, stress test in 2013 did not show ischemia or infarction, continue to monitor Moderate aortic valve stenosis, last echocardiogram was done in August 2016, left ventricle size and function was normal, ejection fraction 60 percent. Continue to monitor at this time. History of hyperlipidemia, hold statin for now and monitor lipids. Hypothyroidism, followed and managed by primary care physician. Ex-tobaccoism, encouraged to continue with smoking cessation. Mild bilateral nonobstructive carotid artery stenosis, continue to monitor Clinical Quality Measures DVT/VTE Risk/Contraindication: Risk Factor Score Per Nursin RFS Level Per Nursing on Admit: 4+=Very High MADISYN JACOBO MD Oct 04, 2016 08:09
--- NOTE | 2016-10-04 08:10 | Pulmonary Progress Note ---
Subjective Subjective/Events-last exam Pt is doing better. No complications noted. Exam Exam Vital Signs Date Time Temp Pulse Resp B/P (MAP) Pulse Ox O2 Delivery O2 Flow Rate FiO2 10/04/16 04:20 98.8 73 15 120/74 97 Nasal Cannula 2.00 10/04/16 04:20 98 2.00 10/04/16 01:00 73 10/04/16 00:00 2.00 10/04/16 00:00 98.4 84 20 134/65 96 Nasal Cannula 2.00 10/03/16 21:00 2.00 10/03/16 20:31 96 Nasal Cannula 2.00 10/03/16 20:30 84 Room Air 10/03/16 19:50 99.1 90 9 140/79 97 Room Air 10/03/16 19:00 80 10/03/16 16:30 98.2 89 12 136/99 97 Room Air 10/03/16 15:02 2.00 10/03/16 13:42 2.00 10/03/16 13:00 79 10/03/16 12:01 2.00 10/03/16 12:00 96.4 10/03/16 09:24 98 10/03/16 09:15 97 Room Air 10/03/16 09:05 96.0 100 13 153/84 97 Room Air 10/03/16 08:53 97.6 90 14 96 I & O 10/04/16 07:00 Intake Total 4758 ml Output Total 2200 ml Balance 2558 ml General Appearance: No Apparent Distress, WD/WN HEENT: PERRL/EOMI (patch on left eye), Normal ENT Inspection, Pharynx Normal Neck: Full Range of Motion, Normal Inspection, Non Tender, Supple, Carotid Bruit Respiratory: Chest Non Tender, Lungs Clear, Normal Breath Sounds, No Accessory Muscle Use, No Respiratory Distress Cardiovascular: Regular Rate, Rhythm, No Edema, No Gallop, No JVD, No Murmur, Normal Peripheral Pulses Capillary Refill: Less Than 3 Seconds Extremity: Normal Capillary Refill, Normal Inspection, Normal Range of Motion, Non Tender, No Calf Tenderness, No Pedal Edema Neurologic/Psychiatric: Alert, Oriented x3, No Motor/Sensory Deficits, Normal Mood/Affect Skin: Normal Color, Warm/Dry Lymphatic: No Adenopathy Results Lab Laboratory Tests 10/03/16 06:15 4/4/17 03:37 Assessment/Plan Assessment/Plan Probable JAKE -Pt will need PSG as out patient Hyperglycemia with MS changes - resolved Sinus tach with hx of aortic valve stenosis -Cardiology consulted Hypokalemia - replace History of upper GI bleed with gastritis Will transfer to 4th floor. I am going to sign off please call with any questions. Clinical Quality Measures DVT/VTE Risk/Contraindication: Risk Factor Score Per Nursin RFS Level Per Nursing on Admit: 4+=Very High MACY GARCIA DO Oct 04, 2016 08:10
[2016-10-04] MEDS ORDERED: KCL 20 MEQ TAB (K-DUR) PO NR (08:15)
[2016-10-04] MEDS ORDERED: NS IV 500 ML 500 ML IV SCH (08:30)
[2016-10-04] MEDS: POTASSIUM CL 10MEQ/50ML IVPB 50 ML IV SCH ×2 (08:57→10:03)
[2016-10-04] MEDS ORDERED: PANTOPRAZOLE 40 MG (PROTONIX) TAB PO SCH (09:00)
--- NOTE | 2016-10-04 10:59 | Discharge Summary-Hospitalist ---
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 She was found to have blood sugar of 466 but normal bicarp so placed on insulin drip and CRX was negative so she has been placed in close monitoring placed on IV fluids and consulting pulmonary and senior medical billing specialist to further evaluate clinical scenario. Chart Review: No fever, Vitals stable, ABG shows 7.43/39/65, K+ 3.2 Dr. Dougals Review: Pt heartrate is 105-110. TSH has been added to labs. battery plate remover: Pt sees Dr. Douglas. Pt is not DKA. Patient Interview: Pt states she is confused currently. Pt was told her blood work looked good. Pt states she feels run down. Pt denies pain currently. Pt states tachycardia earlier caused her some chest pain. Physical exam was stable. Scribed by Josef Rios under the direct supervision of Dr. Bautista. Note form 10/04/16 battery plate remover: Pt can be DC today. Pt still says her head feels funny. Patient Interview: Pt states she is feeling better today. Pt was told she will be DC today. Pt was encouraged to have a close follow up with Dr. Abel. Physical exam was stable. Pt states she has a ride to go back home today. Pt states she has one more bag of IV potassium left. Scribed by Josef Rios under the direct supervision of Dr. Bautista. No fever, vital signs stable, pleasant, improved Regular rate and rhythm, clear to auscultation bilaterally Normal range of motion Hospital course: Patient had an uneventful hospital course she was placed on aggressive IV fluid resuscitation due to dehydration causing additional tachycardia and overall dizziness and weakness. She had not been compliant with insulin and her taking the rest of her medication due to working so much and becoming very exhausted due to working so many hours so she is placed in close monitoring receive the IV fluids much improved replace potassium prior to discharge and felt well enough to go home and will be off work until Monday. Discharge Summary Discharge Physical Examination Allergies: Coded Allergies: Penicillins (Unverified Allergy, Severe, RASH, 09/03/07) pt reports generalized edema to the point pt can't make a fist Sulfa (Sulfonamide Antibiotics) (Unverified Allergy, Severe, RASH, 09/03/07) severe generalized edema cephalexin (Unverified Allergy, Mild, RASH, 09/03/07) Vitals & I&Os Vital Signs Date Time Temp Pulse Resp B/P (MAP) Pulse Ox O2 Delivery O2 Flow Rate FiO2 10/04/16 08:00 95 10/04/16 08:00 96.8 81 14 150/81 Room Air 10/04/16 04:20 2.00 Hospital Course Labs (last 24 hrs) Laboratory Tests 10/03/16 13:21: Glucometer 169H 10/03/16 16:28: Glucometer 124H 10/03/16 19:19: Glucometer 139H 10/03/16 22:22: Glucometer 166H 10/04/16 01:09: Glucometer 145H 10/04/16 03:24: Glucometer 120H 10/04/16 03:37: White Blood Count 7.6, Red Blood Count 3.97L, Hemoglobin 10.1L, Hematocrit 32L, Mean Corpuscular Volume 80, Mean Corpuscular Hemoglobin 25, Mean Corpuscular Hemoglobin Concent 32, Red Cell Distribution Width 20.3H, Platelet Count 307, Mean Platelet Volume 9.5, Neutrophils (%) (Auto) 57, Lymphocytes (%) (Auto) 33, Monocytes (%) (Auto) 8, Eosinophils (%) (Auto) 2, Basophils (%) (Auto) 0, Neutrophils # (Auto) 4.3, Lymphocytes # (Auto) 2.5, Monocytes # (Auto) 0.6, Eosinophils # (Auto) 0.1, Basophils # (Auto) 0.0, Sodium Level 139, Potassium Level 2.8L, Chloride Level 105, Carbon Dioxide Level 24, Anion Gap 10, Blood Urea Nitrogen 8, Creatinine 0.62, Estimat Glomerular Filtration Rate > 60, BUN/ Creatinine Ratio 13, Glucose Level 117H, Calcium Level 7.9L, Total Bilirubin 0.3 , Aspartate Amino Transf (AST/SGOT) 17, Alanine Aminotransferase (ALT/SGPT) 8, Alkaline Phosphatase 53, Total Protein 5.4L, Albumin 3.2 10/04/16 07:00: Glucometer 179H 10/04/16 10:22: Glucometer 165H Microbiology 10/03/16 Urine Culture - Preliminary, Resulted Probable E.coli Pending Labs Laboratory Tests 10/04/16 03:24: Glucometer 120 10/04/16 03:37: White Blood Count 7.6, Red Blood Count 3.97, Hemoglobin 10.1, Hematocrit 32, Mean Corpuscular Volume 80, Mean Corpuscular Hemoglobin 25, Mean Corpuscular Hemoglobin Concent 32, Red Cell Distribution Width 20.3, Platelet Count 307, Mean Platelet Volume 9.5, Neutrophils (%) (Auto) 57, Lymphocytes (%) (Auto) 33, Monocytes (%) (Auto) 8, Eosinophils (%) (Auto) 2, Basophils (%) (Auto) 0, Neutrophils # (Auto) 4.3, Lymphocytes # (Auto) 2.5, Monocytes # (Auto) 0.6, Eosinophils # (Auto) 0.1, Basophils # (Auto) 0.0, Sodium Level 139, Potassium Level 2.8, Chloride Level 105, Carbon Dioxide Level 24, Anion Gap 10, Blood Urea Nitrogen 8, Creatinine 0.62, Estimat Glomerular Filtration Rate > 60, BUN/ Creatinine Ratio 13, Glucose Level 117, Calcium Level 7.9, Total Bilirubin 0.3, Aspartate Amino Transf (AST/SGOT) 17, Alanine Aminotransferase (ALT/SGPT) 8, Alkaline Phosphatase 53, Total Protein 5.4, Albumin 3.2 10/04/16 07:00: Glucometer 179 10/04/16 10:22: Glucometer 165 Discharge Home Medications: Active Scripts Active Reported Sucralfate 1 Gm Tablet 1 Gm PO HS Levemir Flextouch (Insulin Detemir) 100 Unit/1 Ml Insuln.pen 12 Units SQ DAILY Atorvastatin Calcium 10 Mg Tablet 10 Mg PO HS Pantoprazole Sodium 40 Mg Tablet.dr 40 Mg PO DAILY Metoprolol Succinate 100 Mg Tab.er.24h 100 Mg PO HS Hydrochlorothiazide 25 Mg Tablet 25 Mg PO DAILY Levothyroxine Sodium 100 Mcg Tablet 100 Mcg PO DAILY Gabapentin 300 Mg Capsule 300 Mg PO TID Apidra (Insulin Glulisine) 100 U/Ml Vial 4 Units SQ AC LAST FILL DATE UNKNOWN Levemir (Insulin Detemir) 100 U/Ml Vial 10 Units SQ HS Multi Vitamin Daily (Multivitamin) 1 Each Tablet 1 Tab PO DAILY Metformin 500 Mg (Metformin HCl) 500 Mg Tablet 500 Mg PO BID LAST FILLED 03/28/16 #180 Instructions to patient/family Please see electonic discharge instructions given to patient. Clinical Quality Measures DVT/VTE Risk/Contraindication: Risk Factor Score Per Nursin RFS Level Per Nursing on Admit: 4+=Very High SHOBHA BAUTISTA DO Oct 04, 2016 10:59
[2016-10-04 15:14] VITALS: BP 150/81
[2016-10-04] MEDS ORDERED: ATORVASTATIN 10 MG (LIPITOR) TABLET PO SCH (21:00)
[2016-10-04] MEDS ORDERED: meTOprolol SUCCINATE 100 MG (TOPROL XL) TAB PO SCH (21:00)
[2016-10-04] MEDS ORDERED: SUCRALFATE 1 GM (CARAFATE) TAB PO SCH (21:00)
--- NOTE | 2016-10-11 09:48 | Diagnostic Imaging Report ---
PROCEDURE: CT head without contrast. TECHNIQUE: Multiple contiguous axial images were obtained through the brain without the use of intravenous contrast. INDICATION: Weakness, confusion, headache. There is no mass, shift of the midline, or hemorrhage to suggest an acute intracranial abnormality. The ventricles are not abnormally dilated and similar in size to the prior exam of 09/03/2007. The cortical atrophy seen on the previous study is perhaps somewhat greater on this exam. The previous exam did reveal that the patient had undergone a left orbital exenteration. That finding is again evident. The right globe is unremarkable. The sinuses where visualized are unremarkable. The bone windows show no sign of a skull fracture or of a destructive lesion. IMPRESSION: 1. There is no evidence for an acute intracranial abnormality. 2. If clinical concern regarding an underlying abnormality persists, then MRI would be recommended for further study. 3. 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 Dictated by: Dictated on workstation # [id number]
--- OUTSIDE RECORDS SUMMARY | 2016-11-06 05:30 | XMS REPORT | Continuity of Care Document ---
Author Author [facility] Organization [facility] Address Unknown Phone Unavailable Allergies Active Description Code Type Severity Reaction Onset Reported/Identified Relationship to Patient Clinical Status Yes Penicillins [id number] Drug Allergy Severe RASH 09/03/2007 Yes Sulfa (Sulfonamide Antibiotics) [id number] Drug Allergy Severe RASH 09/03/2007 Yes cephalexin [id number] Drug Allergy Mild RASH 09/03/2007 Medications Problems Date Dx Coded Attending Type Code Diagnosis Diagnosed By 06/01/1655 KIAH SAUCEDA, DARY Bradley Ot M25.642 STIFFNESS OF LEFT HAND, NOT ELSEWHERE CL 06/01/1655 KIAH SAUCEDA, DARY Bradley Ot S42.301D UNSP FX SHAFT OF HUMER, RIGHT ARM, SUBS 11/25/2010 Ot 250.00 11/25/2010 Ot 272.4 11/25/2010 Ot 401.9 11/25/2010 Ot 414.01 11/25/2010 Ot 427.69 11/25/2010 Ot 786.50 11/25/2010 Ot 794.30 11/25/2010 Ot V17.49 02/25/2011 Ot 250.00 DIAB RAMON WO COMPL, TYPE II OR UNSPEC TY 02/25/2011 Ot 401.9 HYPERTENSION NOS 02/25/2011 Ot 722.10 LUMBAR DISC DISPLACEMENT 02/26/2011 Ot 724.2 LUMBAGO 02/26/2011 Ot 724.4 LUMBOSACRAL NEURITIS NOS 11/17/2011 Ot 724.2 LUMBAGO 11/17/2011 Ot V57.1 PHYSICAL THERAPY NEC 11/22/2011 Ot 276.51 DEHYDRATION 11/22/2011 Ot 780.2 SYNCOPE AND COLLAPSE 08/26/2014 MADISYN JACOBO MD Ot 272.4 08/26/2014 MADISYN JACOBO MD Ot 414.00 08/26/2014 MADISYN JACOBO MD Ot 433.10 08/26/2014 MADISYN JACOBO MD Ot 786.50 10/01/2014 BONITA SAUCEDA, ESTRELLA Bradley Ot 250.80 DIAB W OTH SPEC MANIFEST, TYPE II OR UNS 07/06/2015 Ot 427.9 07/06/2015 Ot 401.9 07/06/2015 Ot 785.1 07/06/2015 Ot 401.9 07/06/2015 Ot 785.1 07/06/2015 Ot 427.69 07/06/2015 Ot 786.50 07/06/2015 Ot 791.9 07/06/2015 Ot 794.39 07/06/2015 Ot V17.49 07/06/2015 Ot V58.69 07/06/2015 Ot V72.63 07/06/2015 Ot V72.81 07/06/2015 Ot V76.12 07/06/2015 CELINE-LISSY PA, JONATHAN K Ot 305.1 07/06/2015 BERGER-LISSY PA, JONATHAN K Ot 397.0 07/06/2015 BERGER-LISSY PA, JONATHAN K Ot 401.9 07/06/2015 BERGER-LISSY PA, JONATHAN K Ot 414.00 07/06/2015 BERGER-LISSY PA, JONATHAN K Ot 424.0 07/06/2015 BERGER-LISSY PA, JONATHAN K Ot 786.50 07/06/2015 BERGER-LISSY PA, JONATHAN K Ot V17.49 07/06/2015 BERGER-LISSY PA, JONATHAN K Ot 305.1 07/06/2015 BERGER-LISSY PA, JONATHAN K Ot 401.9 07/06/2015 BERGER-LISSY PA, JONATHAN K Ot 414.00 07/06/2015 BERGER-LISSY PA, JONATHAN K Ot 786.50 07/06/2015 BERGER-LISSY PA, JONATHAN K Ot 244.9 07/06/2015 BERGER-LISSY PA, JONATHAN K Ot 250.00 07/06/2015 BERGER-LISSY PA, JONATHAN K Ot 427.69 07/06/2015 BERGER-LISSY PA, JONATHAN K Ot 786.50 07/06/2015 Ot 786.05 07/06/2015 Ot 786.2 07/06/2015 Ot 793.19 07/06/2015 DONNELL SAUCEDA, MADISYN Church Ot 272.4 07/06/2015 DONNELL MADISYN SAUCEDA Ot 414.00 07/06/2015 MADISYN JACOBO MD Ot 433.10 07/06/2015 MADISYN JACOBO MD Ot 786.50 12/10/2015 MADISYN JACOBO MD Ot E78.5 HYPERLIPIDEMIA, UNSPECIFIED 12/10/2015 MADISYN JACOBO MD Ot I25.10 ATHSCL HEART DISEASE OF [place] CORONARY 12/10/2015 MADISYN JACOBO MD Ot I35.0 NONRHEUMATIC AORTIC (VALVE) STENOSIS 12/10/2015 MADIYSN JACOBO MD Ot R07.89 OTHER CHEST PAIN 06/02/2016 Ot V76.12 OTH SCREEN MAMMO-MALIGN NEOPLASM OF [place]ANEL 06/02/2016 JONATHAN LEDEZMA Ot 305.1 TOBACCO USE DISORDER 06/02/2016 JONATHAN LEDEZMA Ot 397.0 TRICUSPID VALVE DISEASE 06/02/2016 JONATHAN LEDEZMA Ot 401.9 HYPERTENSION NOS 06/02/2016 JONATHAN LEDEZMA Ot 414.00 CORON ATHEROSCLER NOS TYPE VESSEL, NATIV 06/02/2016 JONATHAN LEDEZMA Ot 424.0 MITRAL VALVE DISORDER 06/02/2016 JONATHAN LEDEZMA Ot 786.50 CHEST PAIN NOS 06/02/2016 JONATHAN LEDEZMA Ot V17.49 FAMILY HISTORY OF OTHER CARDIOVASCULAR D 06/02/2016 JONATHAN LEDEZMA Ot 305.1 TOBACCO USE DISORDER 06/02/2016 JONATHAN LEDEZMA Ot 401.9 HYPERTENSION NOS 06/02/2016 JONATHAN LEDEZMA Ot 414.00 CORON ATHEROSCLER NOS TYPE VESSEL, NATIV 06/02/2016 JONATHAN LEDEZMA Ot 786.50 CHEST PAIN NOS 06/02/2016 JONATHAN LEDEZMA Ot 244.9 HYPOTHYROIDISM NOS 06/02/2016 JONATHAN LEDEZMA Ot 250.00 DIAB RAMON WO COMPL, TYPE II OR UNSPEC TY 06/02/2016 JONATHAN LEDEZMA Ot 427.69 PREMATURE BEATS NEC 06/02/2016 JONATHAN LEDEZMA Ot 786.50 CHEST PAIN NOS 06/02/2016 Ot 786.05 SHORTNESS OF BREATH 06/02/2016 Ot 786.2 COUGH 06/02/2016 Ot 793.19 OTHER NONSPECIFIC ABNORMAL FINDING OF JOSIAS 06/02/2016 MADISYN JACOBO MD Ot 272.4 HYPERLIPIDEMIA NEC/NOS 06/02/2016 MADISYN JACOBO MD Ot 414.00 CORON ATHEROSCLER NOS TYPE VESSEL, NATIV 06/02/2016 MADISYN JACOBO MD Ot 433.10 CAROTID ARTERY OCCLUSION W O CEREBRAL IN 06/02/2016 MADISYN JACOBO MD Ot 786.50 CHEST PAIN NOS 06/02/2016 MADISYN JACOBO MD Ot E78.5 HYPERLIPIDEMIA, UNSPECIFIED 06/02/2016 MADISYN JACOBO MD Ot I25.10 ATHSCL HEART DISEASE OF [place] CORONARY 06/02/2016 MADISYN JACOBO MD Ot I35.0 NONRHEUMATIC AORTIC (VALVE) STENOSIS 06/02/2016 MADISYN JACOBO MD Ot R07.89 OTHER CHEST PAIN 06/08/2016 Ot V76.12 OTH SCREEN MAMMO-MALIGN NEOPLASM OF [place]AN[place] 06/08/2016 JONATHAN LEDEZMA Ot 305.1 TOBACCO USE DISORDER 06/08/2016 JONATHAN LEDEZMA Ot 397.0 TRICUSPID VALVE DISEASE 06/08/2016 JONATHAN LEDEZMA Ot 401.9 HYPERTENSION NOS 06/08/2016 JONATHAN LEDEZMA Ot 414.00 CORON ATHEROSCLER NOS TYPE VESSEL, NATIV 06/08/2016 JONATHAN LEDEZMA Ot 424.0 MITRAL VALVE DISORDER 06/08/2016 JONATHAN LEDEZMA Ot 786.50 CHEST PAIN NOS 06/08/2016 JONATHAN LEDEZMA Ot V17.49 FAMILY HISTORY OF OTHER CARDIOVASCULAR D 06/08/2016 JONATHAN LEDEZMA Ot 305.1 TOBACCO USE DISORDER 06/08/2016 JONATHAN LEDEZMA Ot 401.9 HYPERTENSION NOS 06/08/2016 JONATHAN LEDEZMA Ot 414.00 CORON ATHEROSCLER NOS TYPE VESSEL, NATIV 06/08/2016 JONATHAN LEDEZMA Ot 786.50 CHEST PAIN NOS 06/08/2016 JONATHAN LEDEZMA Ot 244.9 HYPOTHYROIDISM NOS 06/08/2016 JONATHAN LEDEZMA Ot 250.00 DIAB RAMON WO COMPL, TYPE II OR UNSPEC TY 06/08/2016 JONATHAN LEDEZMA Ot 427.69 PREMATURE BEATS NEC 06/08/2016 JONATHAN LEDEZMA Ot 786.50 CHEST PAIN NOS 06/08/2016 Ot 786.05 SHORTNESS OF BREATH 06/08/2016 Ot 786.2 COUGH 06/08/2016 Ot 793.19 OTHER NONSPECIFIC ABNORMAL FINDING OF JOSIAS 06/08/2016 MADISYN JACOBO MD Ot 272.4 HYPERLIPIDEMIA NEC/NOS 06/08/2016 MADISYN JACOBO MD Ot 414.00 CORON ATHEROSCLER NOS TYPE VESSEL, NATIV 06/08/2016 MADISYN JACOBO MD Ot 433.10 CAROTID ARTERY OCCLUSION W O CEREBRAL IN 06/08/2016 MADISYN JACOBO MD Ot 786.50 CHEST PAIN NOS 06/08/2016 MADISYN JACOBO MD, Ot E78.5 HYPERLIPIDEMIA, UNSPECIFIED 06/08/2016 MADISYN JACOBO MD Ot I25.10 ATHSCL HEART DISEASE OF [place] CORONARY 06/08/2016 MADISYN JACOBO MD Ot I35.0 NONRHEUMATIC AORTIC (VALVE) STENOSIS 06/08/2016 MADISYN JACOBO MD Ot R07.89 OTHER CHEST PAIN 06/08/2016 DARY DUPONT MD Ot M25.642 STIFFNESS OF LEFT HAND, NOT ELSEWHERE CL 06/08/2016 DARY DUPONT MD Ot S42.301D UNSP FX SHAFT OF HUMER, RIGHT ARM, SUBS 06/11/2016 MACHELLE JAIN MD Ot E03.9 HYPOTHYROIDISM, UNSPECIFIED 06/11/2016 MACHELLE JAIN MD Ot E11.9 TYPE 2 DIABETES MELLITUS WITHOUT COMPLIC 06/11/2016 MACHELLE JAIN MD Ot E78.00 PURE HYPERCHOLESTEROLEMIA, UNSPECIFIED 06/11/2016 MACHELLE JAIN MD, Ot E78.5 HYPERLIPIDEMIA, UNSPECIFIED 06/11/2016 MACHELLE JAIN MD Ot E87.6 HYPOKALEMIA 06/11/2016 MACHELLE JAIN MD Ot I10 ESSENTIAL (PRIMARY) HYPERTENSION 06/11/2016 MACHELLE JAIN MD Ot I25.10 ATHSCL HEART DISEASE OF [place] CORONARY 06/11/2016 MACHELLE JAIN MD, Ot I35.0 NONRHEUMATIC AORTIC (VALVE) STENOSIS 06/11/2016 MACHELLE JAIN MD, Ot I65.23 OCCLUSION AND STENOSIS OF BILATERAL [place] 06/11/2016 MACHELLE JAIN MD, Ot K21.0 GASTRO-ESOPHAGEAL REFLUX DISEASE WITH ES 06/11/2016 MACHELLE JAIN MD, Ot K31.7 POLYP OF STOMACH AND DUODENUM 06/11/2016 MACHELLE JAIN MD, Ot K92.2 GASTROINTESTINAL HEMORRHAGE, UNSPECIFIED 06/11/2016 MACHELLE JAIN MD, Ot Z79.4 FPC (CURRENT) USE OF INSULIN 06/11/2016 MACHELLE JAIN MD, Ot Z87.891 PERSONAL HISTORY OF NICOTINE DEPENDENCE 06/11/2016 MACHELLE JAIN MD, Ot Z95.5 PRESENCE OF CORONARY ANGIOPLASTY IMPLANT 07/06/2016 DARY DUPONT MD Ot M25.642 STIFFNESS OF LEFT HAND, NOT ELSEWHERE CL 07/06/2016 DARY DUPONT MD Ot S42.301D UNSP FX SHAFT OF HUMER, RIGHT ARM, SUBS 07/07/2016 Ot V76.12 OTH SCREEN MAMMO-MALIGN NEOPLASM OF [place]AN[place] 07/07/2016 JONATHAN LEDEZMA Ot 305.1 TOBACCO USE DISORDER 07/07/2016 JONATHAN LEDEZMA Ot 397.0 TRICUSPID VALVE DISEASE 07/07/2016 JONATHAN LEDEZMA Ot 401.9 HYPERTENSION NOS 07/07/2016 JONATHAN LEDEZMA Ot 414.00 CORON ATHEROSCLER NOS TYPE VESSEL, NATIV 07/07/2016 JONATHAN LEDEZMA Ot 424.0 MITRAL VALVE DISORDER 07/07/2016 JONATHAN LEDEZMA Ot 786.50 CHEST PAIN NOS 07/07/2016 JONATHAN LEDEZMA Ot V17.49 FAMILY HISTORY OF OTHER CARDIOVASCULAR D 07/07/2016 JONATHAN LEDEZMA Ot 305.1 TOBACCO USE DISORDER 07/07/2016 JONATHAN LEDEZMA Ot 401.9 HYPERTENSION NOS 07/07/2016 JONATHAN LEDEZMA Ot 414.00 CORON ATHEROSCLER NOS TYPE VESSEL, NATIV 07/07/2016 JONATHAN LEDEZMA Ot 786.50 CHEST PAIN NOS 07/07/2016 JONATHAN LEDEZMA Ot 244.9 HYPOTHYROIDISM NOS 07/07/2016 JONATHAN LEDEZMA Ot 250.00 DIAB RAMON WO COMPL, TYPE II OR UNSPEC TY 07/07/2016 JONATHAN LEDEZMA Ot 427.69 PREMATURE BEATS NEC 07/07/2016 JONATHAN LEDEZMA Ot 786.50 CHEST PAIN NOS 07/07/2016 Ot 786.05 SHORTNESS OF BREATH 07/07/2016 Ot 786.2 COUGH 07/07/2016 Ot 793.19 OTHER NONSPECIFIC ABNORMAL FINDING OF JOSIAS 07/07/2016 MADISYN JACOBO MD Ot 272.4 HYPERLIPIDEMIA NEC/NOS 07/07/2016 MADISYN JACOBO MD Ot 414.00 CORON ATHEROSCLER NOS TYPE VESSEL, NATIV 07/07/2016 MADISYN JACOBO MD Ot 433.10 CAROTID ARTERY OCCLUSION W O CEREBRAL IN 07/07/2016 MADISYN JACOBO MD Ot 786.50 CHEST PAIN NOS 07/07/2016 MADISYN JACOBO MD Ot E78.5 HYPERLIPIDEMIA, UNSPECIFIED 07/07/2016 MADISYN JACOBO MD Ot I25.10 ATHSCL HEART DISEASE OF [place] CORONARY 07/07/2016 MADISYN JACOBO MD Ot I35.0 NONRHEUMATIC AORTIC (VALVE) STENOSIS 07/07/2016 MADISYN JACOBO MD Ot R07.89 OTHER CHEST PAIN 07/12/2016 DARY DUPONT MD, Ot M25.642 STIFFNESS OF LEFT HAND, NOT ELSEWHERE CL 07/12/2016 DARY DUPONT MD Ot S42.301D UNSP FX SHAFT OF HUMER, RIGHT ARM, SUBS 07/12/2016 DARY DUPONT MD Ot M25.642 STIFFNESS OF LEFT HAND, NOT ELSEWHERE CL 07/12/2016 DARY DUPONT MD Ot S42.301D UNSP FX SHAFT OF HUMER, RIGHT ARM, SUBS 08/16/2016 JONATHAN LEDEZMA Ot I25.10 ATHSCL HEART DISEASE OF [place] CORONARY 08/16/2016 JONATHAN LEDEZMA Ot I35.0 NONRHEUMATIC AORTIC (VALVE) STENOSIS 08/16/2016 JONATHAN LEDEZMA Ot I65.23 OCCLUSION AND STENOSIS OF BILATERAL [place] 08/16/2016 JONATHAN LEDEZMA Ot K21.9 GASTRO-ESOPHAGEAL REFLUX DISEASE WITHOUT 10/04/2016 SHOBHA BAUTISTA DO Ot E03.9 HYPOTHYROIDISM, UNSPECIFIED 10/04/2016 MICHELE SERVIN SHOBHA Ot E11.65 TYPE 2 DIABETES MELLITUS WITH HYPERGLYCE 10/04/2016 PAMELA BAUTISTA DOI Ot E78.5 HYPERLIPIDEMIA, UNSPECIFIED 10/04/2016 MICHELE SERVIN SHOBHA Ot E86.0 DEHYDRATION 10/04/2016 MICHELE SERVIN SHOBHA Ot E87.6 HYPOKALEMIA 10/04/2016 MICHELE SERVIN SHOBHA Ot G47.33 OBSTRUCTIVE SLEEP APNEA (ADULT) (PEDIATR 10/04/2016 MICHELE SERVIN SHOBHA Ot I10 ESSENTIAL (PRIMARY) HYPERTENSION 10/04/2016 PAMELA BAUTISTA DOI Ot I25.10 ATHSCL HEART DISEASE OF [place] CORONARY 10/04/2016 SHOBHA BAUTISTA DO Ot I35.0 NONRHEUMATIC AORTIC (VALVE) STENOSIS 10/04/2016 SHOBHA BAUTISTA DO Ot K21.9 GASTRO-ESOPHAGEAL REFLUX DISEASE WITHOUT 10/04/2016 SHOBHA BAUTISTA DO Ot R00.0 TACHYCARDIA, UNSPECIFIED 10/04/2016 SHOBHA BAUTISTA DO Ot Z79.4 FPC (CURRENT) USE OF INSULIN 10/04/2016 SHOBHA BAUTISTA DO Ot Z87.891 PERSONAL HISTORY OF NICOTINE DEPENDENCE 10/04/2016 SHOBHA BAUTISTA DO Ot Z95.5 PRESENCE OF CORONARY ANGIOPLASTY IMPLANT 10/04/2016 SHOBHA BAUTISTA DO Ot E03.9 HYPOTHYROIDISM, UNSPECIFIED 10/04/2016 SHOBHA BAUTISTA DO Ot E11.65 TYPE 2 DIABETES MELLITUS WITH HYPERGLYCE 10/04/2016 PAMELA BAUTISTA DOI Ot E78.5 HYPERLIPIDEMIA, UNSPECIFIED 10/04/2016 MICHELE SERVIN SHOBHA Ot E86.0 DEHYDRATION 10/04/2016 MICHELE SERVIN SHOBHA Ot E87.6 HYPOKALEMIA 10/04/2016 MICHELE SERVIN SHOBHA Ot G47.33 OBSTRUCTIVE SLEEP APNEA (ADULT) (PEDIATR 10/04/2016 MICHELE DO SHOBHA Ot I10 ESSENTIAL (PRIMARY) HYPERTENSION 10/04/2016 SHOBHA BAUTISTA DO Ot I25.10 ATHSCL HEART DISEASE OF [place] CORONARY 10/04/2016 SHOBHA BAUTISTA DO Ot I35.0 NONRHEUMATIC AORTIC (VALVE) STENOSIS 10/04/2016 SHOBHA BAUTISTA DO Ot K21.9 GASTRO-ESOPHAGEAL REFLUX DISEASE WITHOUT 10/04/2016 SHOBHA BAUTISTA DO Ot R00.0 TACHYCARDIA, UNSPECIFIED 10/04/2016 SHOBHA BAUTISTA DO Ot 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 10/04/2016 SHOBHA BAUTISTA DO Ot Z87.891 PERSONAL HISTORY OF NICOTINE DEPENDENCE 10/04/2016 SHOBHA BAUTISTA DO Ot Z95.5 PRESENCE OF CORONARY ANGIOPLASTY IMPLANT 10/05/2016 DARY DUPONT MD Ot M25.642 STIFFNESS OF LEFT HAND, NOT ELSEWHERE CL 10/05/2016 DARY DUPONT MD Ot S42.301D UNSP FX SHAFT OF HUMER, RIGHT ARM, SUBS 10/07/2016 DARY DUPONT MD Ot M25.642 STIFFNESS OF LEFT HAND, NOT ELSEWHERE CL 10/07/2016 DARY DUPONT MD Ot S42.301D UNSP FX SHAFT OF HUMER, RIGHT ARM, SUBS 10/07/2016 DARY DUPONT MD Ot M25.642 STIFFNESS OF LEFT HAND, NOT ELSEWHERE CL 10/07/2016 DARY DUPONT MD Ot S42.301D UNSP FX SHAFT OF HUMER, RIGHT ARM, SUBS 10/10/2016 DARY DUPONT MD Ot M25.642 STIFFNESS OF LEFT HAND, NOT ELSEWHERE CL 10/10/2016 DARY DUPONT MD Ot S42.301D UNSP FX SHAFT OF HUMER, RIGHT ARM, SUBS 10/11/2016 DARY DUPONT MD Ot M25.642 STIFFNESS OF LEFT HAND, NOT ELSEWHERE CL 10/11/2016 DARY DUPONT MD Ot S42.301D UNSP FX SHAFT OF HUMER, RIGHT ARM, SUBS 10/26/2016 Ot V76.12 OT SCREEN MAMMO-MALIGN NEOPLASM OF [place]ANEL 10/26/2016 JONATHAN LEDEZMA Ot 305.1 TOBACCO USE DISORDER 10/26/2016 JONATHAN LEDEZMA Ot 397.0 TRICUSPID VALVE DISEASE 10/26/2016 JONATHAN LEDEZMA Ot 401.9 HYPERTENSION NOS 10/26/2016 JG COPE JONATHAN K Ot 414.00 CORON ATHEROSCLER NOS TYPE VESSEL, NATIV 10/26/2016 JONATHAN LEDEZMA Ot 424.0 MITRAL VALVE DISORDER 10/26/2016 JONATHAN LEDEZMA Ot 786.50 CHEST PAIN NOS 10/26/2016 JONATHAN LEDEZMA Ot V17.49 FAMILY HISTORY OF OTHER CARDIOVASCULAR D 10/26/2016 JG COPE JONATHAN K Ot 305.1 TOBACCO USE DISORDER 10/26/2016 JG COPE JONATHAN K Ot 401.9 HYPERTENSION NOS 10/26/2016 JG COPE JONATHAN K Ot 414.00 CORON ATHEROSCLER NOS TYPE VESSEL, NATIV 10/26/2016 JG COPE JONATHAN K Ot 786.50 CHEST PAIN NOS 10/26/2016 JONATHAN LEDEZMA Ot 244.9 HYPOTHYROIDISM NOS 10/26/2016 JG COPE JONATHAN K Ot 250.00 DIAB RAMON WO COMPL, TYPE II OR UNSPEC TY 10/26/2016 JG COPE JONATHAN K Ot 427.69 PREMATURE BEATS NEC 10/26/2016 JG COPE JONATHAN K Ot 786.50 CHEST PAIN NOS 10/26/2016 Ot 786.05 SHORTNESS OF BREATH 10/26/2016 Ot 786.2 COUGH 10/26/2016 Ot 793.19 OTHER NONSPECIFIC ABNORMAL FINDING OF JOSIAS 10/26/2016 MADISYN JACOBO MD Ot 272.4 HYPERLIPIDEMIA NEC/NOS 10/26/2016 MADISYN JACOBO MD Ot 414.00 CORON ATHEROSCLER NOS TYPE VESSEL, NATIV 10/26/2016 MADISYN JACOBO MD Ot 433.10 CAROTID ARTERY OCCLUSION W O CEREBRAL IN 10/26/2016 MADISYN JACOBO MD Ot 786.50 CHEST PAIN NOS 10/26/2016 MADISYN JACOBO MD Ot E78.5 HYPERLIPIDEMIA, UNSPECIFIED 10/26/2016 MADISYN JACOBO MD Ot I25.10 ATHSCL HEART DISEASE OF [place] CORONARY 10/26/2016 MADISYN JACOBO MD Ot I35.0 NONRHEUMATIC AORTIC (VALVE) STENOSIS 10/26/2016 MADISYN JACOBO MD Ot R07.89 OTHER CHEST PAIN 10/26/2016 JONATHAN LEDEZMA Ot I25.10 ATHSCL HEART DISEASE OF [place] CORONARY 10/26/2016 JONATHAN LEDEZMA Ot I35.0 NONRHEUMATIC AORTIC (VALVE) STENOSIS 10/26/2016 JONATHAN LEDEZMA Ot I65.23 OCCLUSION AND STENOSIS OF BILATERAL [place] 10/26/2016 JONATHAN LEDEZMA Ot K21.9 GASTRO-ESOPHAGEAL REFLUX DISEASE WITHOUT 10/26/2016 ABIMBOLA COURTNEY MD, Ot H53.9 UNSPECIFIED VISUAL DISTURBANCE 10/26/2016 ABIMBOLA COURTNEY MD, Ot R41.0 DISORIENTATION, UNSPECIFIED 10/26/2016 DARY DUPONT MD, Ot M25.642 STIFFNESS OF LEFT HAND, NOT ELSEWHERE CL 10/26/2016 DARY DUPONT MD, Ot S42.301D UNSP FX SHAFT OF HUMER, RIGHT ARM, SUBS 11/01/2016 DARY DUPONT MD, Ot M25.642 STIFFNESS OF LEFT HAND, NOT ELSEWHERE CL 11/01/2016 DARY DUPONT MD, Ot S42.301D UNSP FX SHAFT OF HUMER, RIGHT ARM, SUBS Procedures Code Description Performed By Performed On [id number] EXCISION OF STOMACH, ENDO, DIAGN 06/09/2016 [id number] CONTROL BLEEDING IN GASTROINTESTINAL TRA 06/09/2016 Results Test Result Range Complete blood count (CBC) with automated white blood cell (WBC) differential - 06/08/16 17:05 Blood leukocytes automated count (number/volume) 13.2 10*3/ uL 4.3-11.0 Blood erythrocytes automated count (number/volume) 3.80 10*6 /uL 4.35-5.85 Venous blood hemoglobin measurement (mass/volume) 11.5 g/dL 11.5-16.0 Blood hematocrit (volume fraction) 34 % 35-52 Automated erythrocyte mean corpuscular volume 91 [foz_us] 80-99 Automated erythrocyte mean corpuscular hemoglobin (mass per erythrocyte) 30 pg 25-34 Automated erythrocyte mean corpuscular hemoglobin concentration measurement ( mass/volume) 33 g/dL 32-36 Automated erythrocyte distribution width ratio 15.3 % 10.0-14.5 Automated blood platelet count (count/volume) 325 10*3/uL 130-400 Automated blood platelet mean volume measurement 8.9 [foz_us ] 7.4-10.4 Automated blood neutrophils/100 leukocytes 51 % 42-75 Automated blood lymphocytes/100 leukocytes 39 % 12-44 Blood monocytes/100 leukocytes 9 % 0-12 Automated blood eosinophils/100 leukocytes 1 % 0-10 Automated blood basophils/100 leukocytes 1 % 0-10 Blood neutrophils automated count (number/volume) 6.7 10*3 1.8-7.8 Blood lymphocytes automated count (number/volume) 5.1 10*3 1.0-4.0 Blood monocytes automated count (number/volume) 1.2 10*3 0.0-1.0 Automated eosinophil count 0.2 10*3/uL 0.0-0.3 Automated blood basophil count (count/volume) 0.1 10*3/uL 0.0-0.1 Comprehensive metabolic panel - 06/08/16 17:05 Serum or plasma sodium measurement (moles/volume) 136 mmol/ L 135-145 Serum or plasma potassium measurement (moles/volume) 3.1 mmol/L 3.6-5.0 Serum or plasma chloride measurement (moles/volume) 95 mmol/ L 98-107 Carbon dioxide 25 mmol/L 21-32 Serum or plasma anion gap determination (moles/volume) 16 mmol/L 5-14 Serum or plasma urea nitrogen measurement (mass/volume) 38 mg/dL 7-18 Serum or plasma creatinine measurement (mass/volume) 1.01 mg /dL 0.60-1.30 Serum or plasma urea nitrogen/creatinine mass ratio 38 NRG Serum or plasma creatinine measurement with calculation of estimated glomerular filtration rate 55 NRG Serum or plasma glucose measurement (mass/volume) 417 mg/dL 70-105 Serum or plasma calcium measurement (mass/volume) 9.5 mg/dL 8.5-10.1 Serum or plasma total bilirubin measurement (mass/volume) 0.6 mg/dL 0.1-1.0 Serum or plasma alkaline phosphatase measurement (enzymatic activity/volume) 74 U/L 40-136 Serum or plasma aspartate aminotransferase measurement (enzymatic activity/ volume) 16 U/L 5-34 Serum or plasma alanine aminotransferase measurement (enzymatic activity/volume ) 10 U/L 0-55 Serum or plasma protein measurement (mass/volume) 6.4 g/dL 6.4-8.2 Serum or plasma albumin measurement (mass/volume) 3.9 g/dL 3.2-4.5 Lipase - 06/08/16 17:05 Lipase 4 U/L 8-78 PT panel in platelet poor plasma by coagulation assay - 06/08/16 17:05 Prothrombin time (PT) in platelet poor plasma by coagulation assay 13.5 s 12.2-14.7 INR in platelet poor plasma or blood by coagulation assay 1.1 0.8-1.4 Activated partial thromboplastin time (aPTT) in platelet poor plasma bycoagulation assay - 06/08/16 17:05 Activated partial thromboplastin time (aPTT) in platelet poor plasma bycoagulation assay 27 s 24-35 RED CELLS LEUKO REDUCED AS1 - 06/08/16 17:05 RED CELLS LEUKO REDUCED AS1 TRANSFUSED 0130 NRG Blood type T Indirect antibody screen panel - 06/08/16 17:05 ABO+Rh group OP NRG Transfusion band number [id number] NRG Blood group antibody screen NEGATIVE NRG Capillary blood glucose measurement by glucometer (mass/volume) - 06/08/16 18: 43 Capillary blood glucose measurement by glucometer (mass/volume) 269 mg/dL 70-110 Methicillin resistant Staphylococcus aureus (MRSA) screening culture - 20:05 Methicillin resistant Staphylococcus aureus (MRSA) screening culture NEG NRG Capillary blood glucose measurement by glucometer (mass/volume) - 06/08/16 20: 48 Capillary blood glucose measurement by glucometer (mass/volume) 242 mg/dL 70-110 Capillary blood glucose measurement by glucometer (mass/volume) - 06/08/16 21: 59 Capillary blood glucose measurement by glucometer (mass/volume) 164 mg/dL 70-110 Complete blood count (CBC) with automated white blood cell (WBC) differential - 06/08/16 23:00 Blood leukocytes automated count (number/volume) 8.8 10*3/ uL 4.3-11.0 Blood erythrocytes automated count (number/volume) 2.44 10*6 /uL 4.35-5.85 Venous blood hemoglobin measurement (mass/volume) 7.4 g/dL 11.5-16.0 Blood hematocrit (volume fraction) 22 % 35-52 Automated erythrocyte mean corpuscular volume 91 [foz_us] 80-99 Automated erythrocyte mean corpuscular hemoglobin (mass per erythrocyte) 30 pg 25-34 Automated erythrocyte mean corpuscular hemoglobin concentration measurement ( mass/volume) 34 g/dL 32-36 Automated erythrocyte distribution width ratio 14.9 % 10.0-14.5 Automated blood platelet count (count/volume) 239 10*3/uL 130-400 Automated blood platelet mean volume measurement 8.2 [foz_us ] 7.4-10.4 Automated blood neutrophils/100 leukocytes 54 % 42-75 Automated blood lymphocytes/100 leukocytes 36 % 12-44 Blood monocytes/100 leukocytes 9 % 0-12 Automated blood eosinophils/100 leukocytes 0 % 0-10 Automated blood basophils/100 leukocytes 1 % 0-10 Blood neutrophils automated count (number/volume) 4.7 10*3 1.8-7.8 Blood lymphocytes automated count (number/volume) 3.2 10*3 1.0-4.0 Blood monocytes automated count (number/volume) 0.8 10*3 0.0-1.0 Automated eosinophil count 0.0 10*3/uL 0.0-0.3 Automated blood basophil count (count/volume) 0.0 10*3/uL 0.0-0.1 Comprehensive metabolic panel - 06/08/16 23:00 Serum or plasma sodium measurement (moles/volume) 139 mmol/ L 135-145 Serum or plasma potassium measurement (moles/volume) 3.3 mmol/L 3.6-5.0 Serum or plasma chloride measurement (moles/volume) 105 mmol /L 98-107 Carbon dioxide 26 mmol/L 21-32 Serum or plasma anion gap determination (moles/volume) 8 mmol/L 5-14 Serum or plasma urea nitrogen measurement (mass/volume) 41 mg/dL 7-18 Serum or plasma creatinine measurement (mass/volume) 0.68 mg /dL 0.60-1.30 Serum or plasma urea nitrogen/creatinine mass ratio 60 NRG Serum or plasma creatinine measurement with calculation of estimated glomerular filtration rate > NRG Serum or plasma glucose measurement (mass/volume) 124 mg/dL 70-105 Serum or plasma calcium measurement (mass/volume) 7.8 mg/dL 8.5-10.1 Serum or plasma total bilirubin measurement (mass/volume) 0.4 mg/dL 0.1-1.0 Serum or plasma alkaline phosphatase measurement (enzymatic activity/volume) 46 U/L 40-136 Serum or plasma aspartate aminotransferase measurement (enzymatic activity/ volume) 14 U/L 5-34 Serum or plasma alanine aminotransferase measurement (enzymatic activity/volume ) 9 U/L 0-55 Serum or plasma protein measurement (mass/volume) 4.5 g/dL 6.4-8.2 Serum or plasma albumin measurement (mass/volume) 2.8 g/dL 3.2-4.5 Capillary blood glucose measurement by glucometer (mass/volume) - 06/08/16 23: 14 Capillary blood glucose measurement by glucometer (mass/volume) 134 mg/dL 70-110 Capillary blood glucose measurement by glucometer (mass/volume) - 06/09/16 00: 09 Capillary blood glucose measurement by glucometer (mass/volume) 93 mg/dL 70-110 Capillary blood glucose measurement by glucometer (mass/volume) - 06/09/16 01: 12 Capillary blood glucose measurement by glucometer (mass/volume) 116 mg/dL 70-110 Complete urinalysis with reflex to culture - 06/09/16 02:00 Urine color determination YELLOW NRG Urine clarity determination CLEAR NRG Urine pH measurement by test strip 6 5- 9 Specific gravity of urine by test strip 1.015 1.016-1.022 Urine protein assay by test strip, semi-quantitative NEGATIVE NEGATIVE Urine glucose detection by automated test strip NEGATIVE NEGATIVE Erythrocytes detection in urine sediment by light microscopy NEGATIVE NEGATIVE Urine ketones detection by automated test strip 1+ NEGATIVE Urine nitrite detection by test strip NEGATIVE NEGATIVE Urine total bilirubin detection by test strip NEGATIVE NEGATIVE Urine urobilinogen measurement by automated test strip (mass/volume) NORMAL NORMAL Urine leukocyte esterase detection by dipstick 2+ NEGATIVE Automated urine sediment erythrocyte count by microscopy (number/high power field) [HPF] NRG Automated urine sediment leukocyte count by microscopy (number/high power field ) [HPF] NRG Bacteria detection in urine sediment by light microscopy TRACE NRG Squamous epithelial cells detection in urine sediment by light microscopy 2-5 NRG Crystals detection in urine sediment by light microscopy NONE NRG Casts detection in urine sediment by light microscopy NONE NRG Mucus detection in urine sediment by light microscopy NEGATIVE NRG Complete urinalysis with reflex to culture NO NRG Capillary blood glucose measurement by glucometer (mass/volume) - 06/09/16 02: 10 Capillary blood glucose measurement by glucometer (mass/volume) 62 mg/dL 70-110 Capillary blood glucose measurement by glucometer (mass/volume) - 06/09/16 02: 44 Capillary blood glucose measurement by glucometer (mass/volume) 135 mg/dL 70-110 Complete blood count (CBC) with automated white blood cell (WBC) differential - 06/09/16 04:35 Blood leukocytes automated count (number/volume) 7.9 10*3/ uL 4.3-11.0 Blood erythrocytes automated count (number/volume) 2.90 10*6 /uL 4.35-5.85 Venous blood hemoglobin measurement (mass/volume) 8.6 g/dL 11.5-16.0 Blood hematocrit (volume fraction) 26 % 35-52 Automated erythrocyte mean corpuscular volume 91 [foz_us] 80-99 Automated erythrocyte mean corpuscular hemoglobin (mass per erythrocyte) 30 pg 25-34 Automated erythrocyte mean corpuscular hemoglobin concentration measurement ( mass/volume) 33 g/dL 32-36 Automated erythrocyte distribution width ratio 16.6 % 10.0-14.5 Automated blood platelet count (count/volume) 175 10*3/uL 130-400 Automated blood platelet mean volume measurement 9.5 [foz_us ] 7.4-10.4 Automated blood neutrophils/100 leukocytes 62 % 42-75 Automated blood lymphocytes/100 leukocytes 29 % 12-44 Blood monocytes/100 leukocytes 9 % 0-12 Automated blood eosinophils/100 leukocytes 1 % 0-10 Automated blood basophils/100 leukocytes 1 % 0-10 Blood neutrophils automated count (number/volume) 4.9 10*3 1.8-7.8 Blood lymphocytes automated count (number/volume) 2.3 10*3 1.0-4.0 Blood monocytes automated count (number/volume) 0.7 10*3 0.0-1.0 Automated eosinophil count 0.0 10*3/uL 0.0-0.3 Automated blood basophil count (count/volume) 0.1 10*3/uL 0.0-0.1 PT panel in platelet poor plasma by coagulation assay - 06/09/16 04:35 Prothrombin time (PT) in platelet poor plasma by coagulation assay 15.3 s 12.2-14.7 INR in platelet poor plasma or blood by coagulation assay 1.2 0.8-1.4 Comprehensive metabolic panel - 06/09/16 04:35 Serum or plasma sodium measurement (moles/volume) 140 mmol/ L 135-145 Serum or plasma potassium measurement (moles/volume) 3.9 mmol/L 3.6-5.0 Serum or plasma chloride measurement (moles/volume) 110 mmol /L 98-107 Carbon dioxide 22 mmol/L 21-32 Serum or plasma anion gap determination (moles/volume) 8 mmol/L 5-14 Serum or plasma urea nitrogen measurement (mass/volume) 37 mg/dL 7-18 Serum or plasma creatinine measurement (mass/volume) 0.59 mg /dL 0.60-1.30 Serum or plasma urea nitrogen/creatinine mass ratio 63 NRG Serum or plasma creatinine measurement with calculation of estimated glomerular filtration rate > NRG Serum or plasma glucose measurement (mass/volume) 145 mg/dL 70-105 Serum or plasma calcium measurement (mass/volume) 7.2 mg/dL 8.5-10.1 Serum or plasma total bilirubin measurement (mass/volume) 0.9 mg/dL 0.1-1.0 Serum or plasma alkaline phosphatase measurement (enzymatic activity/volume) 42 U/L 40-136 Serum or plasma aspartate aminotransferase measurement (enzymatic activity/ volume) 14 U/L 5-34 Serum or plasma alanine aminotransferase measurement (enzymatic activity/volume ) 8 U/L 0-55 Serum or plasma protein measurement (mass/volume) 4.0 g/dL 6.4-8.2 Serum or plasma albumin measurement (mass/volume) 2.6 g/dL 3.2-4.5 Serum or plasma phosphate measurement (mass/volume) - 06/09/16 04:35 Serum or plasma phosphate measurement (mass/volume) 2.4 mg/ dL 2.3-4.7 Magnesium - 06/09/16 04:35 Magnesium 1.2 mg/dL 1.8-2.4 Capillary blood glucose measurement by glucometer (mass/volume) - 06/09/16 04: 46 Capillary blood glucose measurement by glucometer (mass/volume) 166 mg/dL 70-110 Whole blood hemoglobin and hematocrit panel - 06/09/16 08:08 Venous blood hemoglobin measurement (mass/volume) 8.6 g/dL 11.5-16.0 Blood hematocrit (volume fraction) 26 % 35-52 Capillary blood glucose measurement by glucometer (mass/volume) - 06/09/16 09: 34 Capillary blood glucose measurement by glucometer (mass/volume) 171 mg/dL 70-110 Whole blood hemoglobin and hematocrit panel - 06/09/16 16:03 Venous blood hemoglobin measurement (mass/volume) 8.3 g/dL 11.5-16.0 Blood hematocrit (volume fraction) 25 % 35-52 Capillary blood glucose measurement by glucometer (mass/volume) - 06/09/16 17: 00 Capillary blood glucose measurement by glucometer (mass/volume) 204 mg/dL 70-110 Capillary blood glucose measurement by glucometer (mass/volume) - 06/09/16 20: 12 Capillary blood glucose measurement by glucometer (mass/volume) 152 mg/dL 70-110 Capillary blood glucose measurement by glucometer (mass/volume) - 06/09/16 23: 53 Capillary blood glucose measurement by glucometer (mass/volume) 120 mg/dL 70-110 Whole blood hemoglobin and hematocrit panel - 06/10/16 00:25 Venous blood hemoglobin measurement (mass/volume) 8.1 g/dL 11.5-16.0 Blood hematocrit (volume fraction) 24 % 35-52 Complete blood count (CBC) with automated white blood cell (WBC) differential - 06/10/16 03:40 Blood leukocytes automated count (number/volume) 10.8 10*3/ uL 4.3-11.0 Blood erythrocytes automated count (number/volume) 2.78 10*6 /uL 4.35-5.85 Venous blood hemoglobin measurement (mass/volume) 8.1 g/dL 11.5-16.0 Blood hematocrit (volume fraction) 25 % 35-52 Automated erythrocyte mean corpuscular volume 89 [foz_us] 80-99 Automated erythrocyte mean corpuscular hemoglobin (mass per erythrocyte) 29 pg 25-34 Automated erythrocyte mean corpuscular hemoglobin concentration measurement ( mass/volume) 33 g/dL 32-36 Automated erythrocyte distribution width ratio 16.5 % 10.0-14.5 Automated blood platelet count (count/volume) 210 10*3/uL 130-400 Automated blood platelet mean volume measurement 9.6 [foz_us ] 7.4-10.4 Automated blood neutrophils/100 leukocytes 60 % 42-75 Automated blood lymphocytes/100 leukocytes 30 % 12-44 Blood monocytes/100 leukocytes 8 % 0-12 Automated blood eosinophils/100 leukocytes 2 % 0-10 Automated blood basophils/100 leukocytes 0 % 0-10 Blood neutrophils automated count (number/volume) 6.5 10*3 1.8-7.8 Blood lymphocytes automated count (number/volume) 3.2 10*3 1.0-4.0 Blood monocytes automated count (number/volume) 0.8 10*3 0.0-1.0 Automated eosinophil count 0.2 10*3/uL 0.0-0.3 Automated blood basophil count (count/volume) 0.0 10*3/uL 0.0-0.1 Whole blood basic metabolic panel - 06/10/16 03:40 Serum or plasma sodium measurement (moles/volume) 140 mmol/ L 135-145 Serum or plasma potassium measurement (moles/volume) 3.2 mmol/L 3.6-5.0 Serum or plasma chloride measurement (moles/volume) 111 mmol /L 98-107 Carbon dioxide 22 mmol/L 21-32 Serum or plasma anion gap determination (moles/volume) 7 mmol/L 5-14 Serum or plasma urea nitrogen measurement (mass/volume) 17 mg/dL 7-18 Serum or plasma creatinine measurement (mass/volume) 0.50 mg /dL 0.60-1.30 Serum or plasma urea nitrogen/creatinine mass ratio 34 NRG Serum or plasma creatinine measurement with calculation of estimated glomerular filtration rate > NRG Serum or plasma glucose measurement (mass/volume) 77 mg/dL 70-105 Serum or plasma calcium measurement (mass/volume) 7.1 mg/dL 8.5-10.1 Serum or plasma phosphate measurement (mass/volume) - 06/10/16 03:40 Serum or plasma phosphate measurement (mass/volume) 1.8 mg/ dL 2.3-4.7 Magnesium - 06/10/16 03:40 Magnesium 1.4 mg/dL 1.8-2.4 Capillary blood glucose measurement by glucometer (mass/volume) - 06/10/16 08: 43 Capillary blood glucose measurement by glucometer (mass/volume) 89 mg/dL 70-110 Whole blood hemoglobin and hematocrit panel - 06/10/16 08:45 Venous blood hemoglobin measurement (mass/volume) 8.2 g/dL 11.5-16.0 Blood hematocrit (volume fraction) 25 % 35-52 Capillary blood glucose measurement by glucometer (mass/volume) - 06/10/16 10: 53 Capillary blood glucose measurement by glucometer (mass/volume) 89 mg/dL 70-110 Whole blood hemoglobin and hematocrit panel - 06/10/16 16:00 Venous blood hemoglobin measurement (mass/volume) 8.2 g/dL 11.5-16.0 Blood hematocrit (volume fraction) 26 % 35-52 Capillary blood glucose measurement by glucometer (mass/volume) - 06/10/16 16: 49 Capillary blood glucose measurement by glucometer (mass/volume) 84 mg/dL 70-110 Capillary blood glucose measurement by glucometer (mass/volume) - 06/10/16 20: 37 Capillary blood glucose measurement by glucometer (mass/volume) 175 mg/dL 70-110 Whole blood hemoglobin and hematocrit panel - 06/11/16 00:15 Venous blood hemoglobin measurement (mass/volume) 7.1 g/dL 11.5-16.0 Blood hematocrit (volume fraction) 22 % 35-52 Capillary blood glucose measurement by glucometer (mass/volume) - 06/11/16 01: 33 Capillary blood glucose measurement by glucometer (mass/volume) 66 mg/dL 70-110 Capillary blood glucose measurement by glucometer (mass/volume) - 06/11/16 04: 17 Capillary blood glucose measurement by glucometer (mass/volume) 81 mg/dL 70-110 Complete blood count (CBC) with automated white blood cell (WBC) differential - 06/11/16 04:48 Blood leukocytes automated count (number/volume) 8.5 10*3/ uL 4.3-11.0 Blood erythrocytes automated count (number/volume) 2.50 10*6 /uL 4.35-5.85 Venous blood hemoglobin measurement (mass/volume) 7.3 g/dL 11.5-16.0 Blood hematocrit (volume fraction) 23 % 35-52 Automated erythrocyte mean corpuscular volume 90 [foz_us] 80-99 Automated erythrocyte mean corpuscular hemoglobin (mass per erythrocyte) 29 pg 25-34 Automated erythrocyte mean corpuscular hemoglobin concentration measurement ( mass/volume) 32 g/dL 32-36 Automated erythrocyte distribution width ratio 16.6 % 10.0-14.5 Automated blood platelet count (count/volume) 185 10*3/uL 130-400 Automated blood platelet mean volume measurement 9.2 [foz_us ] 7.4-10.4 Automated blood neutrophils/100 leukocytes 61 % 42-75 Automated blood lymphocytes/100 leukocytes 30 % 12-44 Blood monocytes/100 leukocytes 8 % 0-12 Automated blood eosinophils/100 leukocytes 1 % 0-10 Automated blood basophils/100 leukocytes 0 % 0-10 Blood neutrophils automated count (number/volume) 5.2 10*3 1.8-7.8 Blood lymphocytes automated count (number/volume) 2.5 10*3 1.0-4.0 Blood monocytes automated count (number/volume) 0.7 10*3 0.0-1.0 Automated eosinophil count 0.1 10*3/uL 0.0-0.3 Automated blood basophil count (count/volume) 0.0 10*3/uL 0.0-0.1 Whole blood basic metabolic panel - 06/11/16 04:48 Serum or plasma sodium measurement (moles/volume) 141 mmol/ L 135-145 Serum or plasma potassium measurement (moles/volume) 3.3 mmol/L 3.6-5.0 Serum or plasma chloride measurement (moles/volume) 112 mmol /L 98-107 Carbon dioxide 23 mmol/L 21-32 Serum or plasma anion gap determination (moles/volume) 6 mmol/L 5-14 Serum or plasma urea nitrogen measurement (mass/volume) 9 mg /dL 7-18 Serum or plasma creatinine measurement (mass/volume) 0.50 mg /dL 0.60-1.30 Serum or plasma urea nitrogen/creatinine mass ratio 18 NRG Serum or plasma creatinine measurement with calculation of estimated glomerular filtration rate > NRG Serum or plasma glucose measurement (mass/volume) 68 mg/dL 70-105 Serum or plasma calcium measurement (mass/volume) 7.6 mg/dL 8.5-10.1 Serum or plasma phosphate measurement (mass/volume) - 06/11/16 04:48 Serum or plasma phosphate measurement (mass/volume) 2.0 mg/ dL 2.3-4.7 Magnesium - 06/11/16 04:48 Magnesium 1.5 mg/dL 1.8-2.4 Whole blood hemoglobin and hematocrit panel - 06/11/16 07:50 Venous blood hemoglobin measurement (mass/volume) 8.2 g/dL 11.5-16.0 Blood hematocrit (volume fraction) 26 % 35-52 Complete blood count (CBC) with automated white blood cell (WBC) differential - 10/03/16 06:15 Blood leukocytes automated count (number/volume) 9.5 10*3/ uL 4.3-11.0 Blood erythrocytes automated count (number/volume) 4.75 10*6 /uL 4.35-5.85 Venous blood hemoglobin measurement (mass/volume) 12.2 g/dL 11.5-16.0 Blood hematocrit (volume fraction) 37 % 35-52 Automated erythrocyte mean corpuscular volume 78 [foz_us] 80-99 Automated erythrocyte mean corpuscular hemoglobin (mass per erythrocyte) 26 pg 25-34 Automated erythrocyte mean corpuscular hemoglobin concentration measurement ( mass/volume) 33 g/dL 32-36 Automated erythrocyte distribution width ratio 20.5 % 10.0-14.5 Automated blood platelet count (count/volume) 377 10*3/uL 130-400 Automated blood platelet mean volume measurement 9.5 [foz_us ] 7.4-10.4 Automated blood neutrophils/100 leukocytes 68 % 42-75 Automated blood lymphocytes/100 leukocytes 24 % 12-44 Blood monocytes/100 leukocytes 8 % 0-12 Automated blood eosinophils/100 leukocytes 1 % 0-10 Automated blood basophils/100 leukocytes 0 % 0-10 Blood neutrophils automated count (number/volume) 6.4 10*3 1.8-7.8 Blood lymphocytes automated count (number/volume) 2.3 10*3 1.0-4.0 Blood monocytes automated count (number/volume) 0.7 10*3 0.0-1.0 Automated eosinophil count 0.1 10*3/uL 0.0-0.3 Automated blood basophil count (count/volume) 0.0 10*3/uL 0.0-0.1 Comprehensive metabolic panel - 10/03/16 06:15 Serum or plasma sodium measurement (moles/volume) 136 mmol/ L 135-145 Serum or plasma potassium measurement (moles/volume) 3.2 mmol/L 3.6-5.0 Serum or plasma chloride measurement (moles/volume) 97 mmol/ L 98-107 Carbon dioxide 21 mmol/L 21-32 Serum or plasma anion gap determination (moles/volume) 18 mmol/L 5-14 Serum or plasma urea nitrogen measurement (mass/volume) 18 mg/dL 7-18 Serum or plasma creatinine measurement (mass/volume) 0.99 mg /dL 0.60-1.30 Serum or plasma urea nitrogen/creatinine mass ratio 18 NRG Serum or plasma creatinine measurement with calculation of estimated glomerular filtration rate 56 NRG Serum or plasma glucose measurement (mass/volume) 466 mg/dL 70-105 Serum or plasma calcium measurement (mass/volume) 9.6 mg/dL 8.5-10.1 Serum or plasma total bilirubin measurement (mass/volume) 0.5 mg/dL 0.1-1.0 Serum or plasma alkaline phosphatase measurement (enzymatic activity/volume) 80 U/L 40-136 Serum or plasma aspartate aminotransferase measurement (enzymatic activity/ volume) 15 U/L 5-34 Serum or plasma alanine aminotransferase measurement (enzymatic activity/volume ) 10 U/L 0-55 Serum or plasma protein measurement (mass/volume) 7.3 g/dL 6.4-8.2 Serum or plasma albumin measurement (mass/volume) 4.1 g/dL 3.2-4.5 Serum or plasma troponin i.cardiac measurement (mass/volume) - 10/03/16 06:15 Serum or plasma troponin i.cardiac measurement (mass/volume) < ng/mL <0.30 Lipase - 10/03/16 06:15 Lipase < U/L 8-78 Hemoglobin A1c - 10/03/16 06:15 Hemoglobin A1c 8.9 % 4.5-6.2 THYROID STIMULATING HORMONE - 10/03/16 06:15 THYROID STIMULATING HORMONE 4.42 u[iU]/mL 0.35-4.94 Capillary blood glucose measurement by glucometer (mass/volume) - 10/03/16 06: 16 Capillary blood glucose measurement by glucometer (mass/volume) 438 mg/dL 70-110 Arterial blood gas measurement - 10/03/16 07:47 Blood pCO2 39 mm[Hg] 35-45 Blood pO2 65 mm[Hg] 79-93 Arterial blood bicarbonate measurement (moles/volume) 26 mmol/L 23-27 Arterial blood base excess by calculation 1.8 mmol/L -2.5-2.5 Arterial blood oxygen saturation measurement 94 % 94-100 * Inhaled oxygen flow rate N/A NRG Arterial blood pH measurement with patient temperature correction 7.43 7.37-7.43 Arterial blood carbon dioxide, total measurement (moles/volume) 27.1 mmol/L 21.0-31.0 Body site RIGHT RADIAL NRG Assessment of wrist artery patency prior to arterial puncture POSITIVE NRG Setting of ventilation mode NO NRG Measurement of body temperature 97.2 NRG Capillary blood glucose measurement by glucometer (mass/volume) - 10/03/16 08: 46 Capillary blood glucose measurement by glucometer (mass/volume) 330 mg/dL 70-110 Complete urinalysis with reflex to culture - 10/03/16 09:14 Urine color determination YELLOW NRG Urine clarity determination SLIGHTLY CLOUDY NRG Urine pH measurement by test strip 6 5- 9 Specific gravity of urine by test strip 1.020 1.016-1.022 Urine protein assay by test strip, semi-quantitative NEGATIVE NEGATIVE Urine glucose detection by automated test strip 4+ NEGATIVE Erythrocytes detection in urine sediment by light microscopy 2+ NEGATIVE Urine ketones detection by automated test strip 4+ NEGATIVE Urine nitrite detection by test strip POSITIVE NEGATIVE Urine total bilirubin detection by test strip NEGATIVE NEGATIVE Urine urobilinogen measurement by automated test strip (mass/volume) NORMAL NORMAL Urine leukocyte esterase detection by dipstick 1+ NEGATIVE Automated urine sediment erythrocyte count by microscopy (number/high power field) [HPF] NRG Automated urine sediment leukocyte count by microscopy (number/high power field ) [HPF] NRG Bacteria detection in urine sediment by light microscopy MODERATE NRG Squamous epithelial cells detection in urine sediment by light microscopy RARE NRG Crystals detection in urine sediment by light microscopy NONE NRG Casts detection in urine sediment by light microscopy NONE NRG Mucus detection in urine sediment by light microscopy NEGATIVE NRG Complete urinalysis with reflex to culture YES NRG Bacterial urine culture - 10/03/16 09:14 Bacterial urine culture [id number] NRG COLONY COUNT >100,000/ML NRG FTX;REPORTABLE SENSITIVITY REPORTED 10/04 15:55 NRG FREE TEXT ENTRY 2 PLUS, MIXED GRAM POSITIVES <10,000/ML NRG Bacterial susceptibility panel - 10/03/16 09:14 Gentamicin susceptibility test by minimum inhibitory concentration <= NRG Trimethoprim/sulfamethoxazole susceptibility test by minimum inhibitoryconcentration <= NRG Ampicillin susceptibility test by minimum inhibitory concentration <= NRG Tobramycin susceptibility test by minimum inhibitory concentration <= NRG Cefazolin susceptibility test by minimum inhibitory concentration <= NRG Ceftriaxone susceptibility test by minimum inhibitory concentration <= NRG Ampicillin/sulbactam susceptibility test by minimum inhibitory concentration <= NRG Piperacillin/tazobactam susceptibility test by minimum inhibitory concentration <= NRG Ciprofloxacin susceptibility test by minimum inhibitory concentration <= NRG Meropenem susceptibility test by minimum inhibitory concentration <= NRG Nitrofurantoin susceptibility test by minimum inhibitory concentration <= NRG Aztreonam susceptibility test by minimum inhibitory concentration <= NRG Extended spectrum beta lactamase (ESBL) producing bacteria susceptibility test by minimum inhibitory concentration - NRG Capillary blood glucose measurement by glucometer (mass/volume) - 10/03/16 09: 34 Capillary blood glucose measurement by glucometer (mass/volume) 244 mg/dL 70-110 Capillary blood glucose measurement by glucometer (mass/volume) - 10/03/16 13: 21 Capillary blood glucose measurement by glucometer (mass/volume) 169 mg/dL 70-110 Capillary blood glucose measurement by glucometer (mass/volume) - 10/03/16 16: 28 Capillary blood glucose measurement by glucometer (mass/volume) 124 mg/dL 70-110 Capillary blood glucose measurement by glucometer (mass/volume) - 10/03/16 19: 19 Capillary blood glucose measurement by glucometer (mass/volume) 139 mg/dL 70-110 Capillary blood glucose measurement by glucometer (mass/volume) - 10/03/16 22: 22 Capillary blood glucose measurement by glucometer (mass/volume) 166 mg/dL 70-110 Capillary blood glucose measurement by glucometer (mass/volume) - 10/04/16 01: 09 Capillary blood glucose measurement by glucometer (mass/volume) 145 mg/dL 70-110 Capillary blood glucose measurement by glucometer (mass/volume) - 10/04/16 03: 24 Capillary blood glucose measurement by glucometer (mass/volume) 120 mg/dL 70-110 Complete blood count (CBC) with automated white blood cell (WBC) differential - 10/04/16 03:37 Blood leukocytes automated count (number/volume) 7.6 10*3/ uL 4.3-11.0 Blood erythrocytes automated count (number/volume) 3.97 10*6 /uL 4.35-5.85 Venous blood hemoglobin measurement (mass/volume) 10.1 g/dL 11.5-16.0 Blood hematocrit (volume fraction) 32 % 35-52 Automated erythrocyte mean corpuscular volume 80 [foz_us] 80-99 Automated erythrocyte mean corpuscular hemoglobin (mass per erythrocyte) 25 pg 25-34 Automated erythrocyte mean corpuscular hemoglobin concentration measurement ( mass/volume) 32 g/dL 32-36 Automated erythrocyte distribution width ratio 20.3 % 10.0-14.5 Automated blood platelet count (count/volume) 307 10*3/uL 130-400 Automated blood platelet mean volume measurement 9.5 [foz_us ] 7.4-10.4 Automated blood neutrophils/100 leukocytes 57 % 42-75 Automated blood lymphocytes/100 leukocytes 33 % 12-44 Blood monocytes/100 leukocytes 8 % 0-12 Automated blood eosinophils/100 leukocytes 2 % 0-10 Automated blood basophils/100 leukocytes 0 % 0-10 Blood neutrophils automated count (number/volume) 4.3 10*3 1.8-7.8 Blood lymphocytes automated count (number/volume) 2.5 10*3 1.0-4.0 Blood monocytes automated count (number/volume) 0.6 10*3 0.0-1.0 Automated eosinophil count 0.1 10*3/uL 0.0-0.3 Automated blood basophil count (count/volume) 0.0 10*3/uL 0.0-0.1 Comprehensive metabolic panel - 10/04/16 03:37 Serum or plasma sodium measurement (moles/volume) 139 mmol/ L 135-145 Serum or plasma potassium measurement (moles/volume) 2.8 mmol/L 3.6-5.0 Serum or plasma chloride measurement (moles/volume) 105 mmol /L 98-107 Carbon dioxide 24 mmol/L 21-32 Serum or plasma anion gap determination (moles/volume) 10 mmol/L 5-14 Serum or plasma urea nitrogen measurement (mass/volume) 8 mg /dL 7-18 Serum or plasma creatinine measurement (mass/volume) 0.62 mg /dL 0.60-1.30 Serum or plasma urea nitrogen/creatinine mass ratio 13 NRG Serum or plasma creatinine measurement with calculation of estimated glomerular filtration rate > NRG Serum or plasma glucose measurement (mass/volume) 117 mg/dL 70-105 Serum or plasma calcium measurement (mass/volume) 7.9 mg/dL 8.5-10.1 Serum or plasma total bilirubin measurement (mass/volume) 0.3 mg/dL 0.1-1.0 Serum or plasma alkaline phosphatase measurement (enzymatic activity/volume) 53 U/L 40-136 Serum or plasma aspartate aminotransferase measurement (enzymatic activity/ volume) 17 U/L 5-34 Serum or plasma alanine aminotransferase measurement (enzymatic activity/volume ) 8 U/L 0-55 Serum or plasma protein measurement (mass/volume) 5.4 g/dL 6.4-8.2 Serum or plasma albumin measurement (mass/volume) 3.2 g/dL 3.2-4.5 Capillary blood glucose measurement by glucometer (mass/volume) - 10/04/16 07: 00 Capillary blood glucose measurement by glucometer (mass/volume) 179 mg/dL 70-110 Capillary blood glucose measurement by glucometer (mass/volume) - 10/04/16 10: 22 Capillary blood glucose measurement by glucometer (mass/volume) 165 mg/dL 70-110 Encounters ACCT No. Visit Date/Time Discharge Status Pt. Type Provider Facility Loc./Unit Complaint [id number] 10/28/2016 12:45:00 2016 14:12:00 DIS Outpatient DARY DUPONT MD [facility] REHAB L HUMERUS FX; L HAND STIFFNESS [id number] 09/30/2016 16:33:00 2016 00:01:00 DIS Outpatient DARY DUPONT MD [facility] REHAB L HUMERUS FX; L HAND STIFFNESS [id number] 10/03/2016 07:30:00 2016 11:30:00 DIS Inpatient SHOBHA BAUTISTA DO [facility] ICU HYPERGLYCEMIA AND CONFUSION [id number] 06/30/2016 16:25:00 2016 16:56:00 DIS Outpatient DARY DUPONT MD [facility] REHAB L HUMERUS FX; L HAND STIFFNESS [id number] 06/08/2016 18:56:00 2015 10:56:00 DIS Inpatient MACHELLE JAIN MD [facility] 4TH UPPER GI BLEED,HYPOKALEMIA,HYPOTENSION [id number] 10/01/2014 15:39:00 2014 17:23:00 DIS Emergency ESTRELLA MESA MD [facility] ER LOW BLOOD SUGAR [id number] 07/16/2014 07:57:00 2014 23:59:59 CLS Outpatient MADISNY JACOBO MD [facility] CARD CAD,CP,HLP [id number] 10/29/2013 11:31:00 2013 23:59:59 CLS Outpatient JONATHAN LEDEZMA [facility] CARD JANNETTE,CP,GERD,HYPOTHYROIDISM [id number] 01/16/2013 06:59:00 2012 23:59:59 CLS Outpatient JONATHAN LEDEZMA [facility] RAD CP,CAD,HTN [id number] 01/08/2013 10:51:00 2012 23:59:59 CLS Outpatient JONATHAN LEDEZMA [facility] CP,CAD,HTN,TOBACCOISM, FAMILY HX [id number] 11/01/2016 14:15:00 ACT Outpatient DARY DUPONT MD [facility] REHAB L HUMERUS FX [id number] 11/01/2016 14:12:00 PEN Preadmit DARY DUPONT MD [facility] REHAB L HUMERUS FX; L HAND STIFFNESS [id number] 10/05/2016 11:33:00 ACT Outpatient ROZ SAUCEDA, ABIMBOLA Santacruz [facility] RAD ACUTE CONFUSION [id number] 08/15/2016 07:31:00 ACT Outpatient JONATHAN SY [facility] CARD ,CAD,CAROTID ARTERY STENOSIS,GERD [id number] 07/06/2015 08:25:00 ACT Outpatient DONNELL SAUCEDA, MADISYN Church [facility] CARD ,CAD,CP SYNDROME,HYPERLIPADEMA [id number] 07/06/2015 08:25:00 Document Registration [id number] 02/21/2014 15:29:00 Document Registration [id number] 10/16/2012 11:00:00 Document Registration [id number] 11/22/2011 11:13:00 Document Registration [id number] 11/17/2011 08:02:00 Document Registration [id number] 02/26/2011 03:38:00 Document Registration [id number] 02/24/2011 14:30:00 Document Registration [id number] 11/24/2010 05:32:00 Document Registration [id number] 11/23/2010 07:07:00 Document Registration [id number] 11/15/2010 07:08:00 Document Registration [id number] 11/11/2010 13:19:00 Document Registration [id number] 10/04/2010 07:45:00 Document Registration
--- OUTSIDE RECORDS SUMMARY | 2016-11-06 05:41 | XMS REPORT | Continuity of Care Document ---
Author Author [facility] Organization [facility] Address Unknown Phone Unavailable Allergies Active Description Code Type Severity Reaction Onset Reported/Identified Relationship to Patient Clinical Status Yes Penicillins [id number] Drug Allergy Severe RASH 09/03/2007 Yes Sulfa (Sulfonamide Antibiotics) [id number] Drug Allergy Severe RASH 09/03/2007 Yes cephalexin [id number] Drug Allergy Mild RASH 09/03/2007 Medications Problems [...] MADISYN Church Ot 272.4 07/06/2015 DONNELL MADISYN ASUCEDA Ot 414.00 07/06/2015 MADISYN JACOBO MD Ot 433.10 07/06/2015 MADISYN JACOBO MD Ot 786.50 12/10/2015 MADISYN JACOBO MD Ot E78.5 HYPERLIPIDEMIA, UNSPECIFIED 12/10/2015 MADISYN JACOBO MD Ot I25.10 ATHSCL HEART DISEASE OF [place] CORONARY 12/10/2015 MADISYN JACOBO MD Ot I35.0 NONRHEUMATIC AORTIC (VALVE) STENOSIS 12/10/2015 MADISYN JACOBO MD Ot R07.89 OTHER CHEST [...] MD Ot I25.10 ATHSCL HEART DISEASE OF [place] CORONARY 06/02/2016 MADISYN JACOBO MD Ot I35.0 [...] MD Ot I25.10 ATHSCL HEART DISEASE OF [place] CORONARY 06/08/2016 MADISYN JACOBO MD Ot I35.0 [...] MD Ot I25.10 ATHSCL HEART DISEASE OF [place] CORONARY 06/11/2016 MACHELLE JAIN MD, Ot I35.0 NONRHEUMATIC AORTIC (VALVE) STENOSIS 06/11/2016 MACHELLE JAIN MD, Ot I65.23 OCCLUSION AND STENOSIS OF [place] 06/11/2016 MACHELLE JAIN MD, Ot K21.0 GASTRO-ESOPHAGEAL REFLUX DISEASE WITH ES 06/11/2016 MACHELLE JAIN MD, Ot K31.7 POLYP OF STOMACH AND DUODENUM 06/11/2016 MACHELLE JAIN MD, Ot K92.2 GASTROINTESTINAL HEMORRHAGE, UNSPECIFIED 06/11/2016 MACHELLE JAIN MD, Ot Z79.4 SKILLED NURSING (CURRENT) USE OF INSULIN 06/11/2016 MACHELLE JAIN [...] MD Ot I25.10 ATHSCL HEART DISEASE OF [place] CORONARY 07/07/2016 MADISYN JACOBO MD Ot I35.0 [...] LEDEZMA Ot I25.10 ATHSCL HEART DISEASE OF [place] CORONARY 08/16/2016 JONATHAN LEDEZMA Ot I35.0 NONRHEUMATIC [...] DOI Ot I25.10 ATHSCL HEART DISEASE OF [place] CORONARY 10/04/2016 SHOBHA BAUTISTA DO Ot I35.0 NONRHEUMATIC AORTIC (VALVE) STENOSIS 10/04/2016 SHOBHA BAUTISTA DO Ot K21.9 GASTRO-ESOPHAGEAL REFLUX DISEASE WITHOUT 10/04/2016 SHOBHA BAUTISTA DO Ot R00.0 TACHYCARDIA, UNSPECIFIED 10/04/2016 SHOBHA BAUTISTA DO Ot Z79.4 SKILLED NURSING (CURRENT) USE OF INSULIN 10/04/2016 SHOBHA BAUTISTA [...] DO Ot I25.10 ATHSCL HEART DISEASE OF [place] CORONARY 10/04/2016 SHOBHA BAUTISTA DO Ot I35.0 NONRHEUMATIC AORTIC (VALVE) STENOSIS 10/04/2016 SHOBHA BAUTISTA DO Ot K21.9 GASTRO-ESOPHAGEAL REFLUX DISEASE WITHOUT 10/04/2016 SHOBHA BAUTISTA DO Ot R00.0 TACHYCARDIA, UNSPECIFIED 10/04/2016 SHOBHA BAUTISTA DO Ot 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 10/04/2016 SHOBHA BAUTISTA [...] MD Ot I25.10 ATHSCL HEART DISEASE OF [place] CORONARY 10/26/2016 MADISYN JACOBO MD Ot I35.0 NONRHEUMATIC AORTIC (VALVE) STENOSIS 10/26/2016 MADISYN JACOBO MD Ot R07.89 OTHER CHEST PAIN 10/26/2016 JONATHAN LEDEZMA Ot I25.10 ATHSCL HEART DISEASE OF [place] CORONARY 10/26/2016 JONATHAN LEDEZMA Ot I35.0 NONRHEUMATIC [...] Procedures Code Description Performed By Performed On [id number] EXCISION OF STOMACH, ENDO, DIAGN 06/09/2016 [id number] CONTROL BLEEDING IN GASTROINTESTINAL TRA 06/09/2016 Results [...] ABO+Rh group OP NRG Transfusion band number [id number] NRG Blood group antibody screen NEGATIVE NRG [...] culture - 10/03/16 09:14 Bacterial urine culture [id number] NRG COLONY COUNT >100,000/ML NRG FTX;REPORTABLE SENSITIVITY [...] Status Pt. Type Provider Facility Loc./Unit Complaint [id number] 10/28/2016 12:45:00 2016 14:12:00 DIS Outpatient DARY DUPONT MD [facility] REHAB L HUMERUS FX; L HAND STIFFNESS [id number] 09/30/2016 16:33:00 2016 00:01:00 DIS Outpatient DARY DUPONT MD [facility] REHAB L HUMERUS FX; L HAND STIFFNESS [id number] 10/03/2016 07:30:00 2016 11:30:00 DIS Inpatient SHOBHA BAUTISTA DO [facility] ICU HYPERGLYCEMIA AND CONFUSION [id number] 06/30/2016 16:25:00 2016 16:56:00 DIS Outpatient DARY DUPONT MD [facility] REHAB L HUMERUS FX; L HAND STIFFNESS [id number] 06/08/2016 18:56:00 2015 10:56:00 DIS Inpatient MACHELLE JAIN MD [facility] 4TH UPPER GI BLEED,HYPOKALEMIA,HYPOTENSION [id number] 10/01/2014 15:39:00 2014 17:23:00 DIS Emergency ESTRELLA MESA MD [facility] ER LOW BLOOD SUGAR [id number] 07/16/2014 07:57:00 2014 23:59:59 CLS Outpatient MADISYN JACOBO MD [facility] CARD CAD,CP,HLP [id number] 10/29/2013 11:31:00 2013 23:59:59 CLS Outpatient JONATHAN LEDEZMA [facility] CARD JANNETTE,CP,GERD,HYPOTHYROIDISM [id number] 01/16/2013 06:59:00 2012 23:59:59 CLS Outpatient JONATHAN LEDEZMA [facility] RAD CP,CAD,HTN [id number] 01/08/2013 10:51:00 2012 23:59:59 CLS Outpatient JONATHAN LEDEZMA [facility] CP,CAD,HTN,TOBACCOISM, FAMILY HX [id number] 11/01/2016 14:15:00 ACT Outpatient DARY DUPONT MD [facility] REHAB L HUMERUS FX [id number] 11/01/2016 14:12:00 PEN Preadmit DARY DUPONT MD [facility] REHAB L HUMERUS FX; L HAND STIFFNESS [id number] 10/05/2016 11:33:00 ACT Outpatient ROZ SAUCEDA, ABIMBOLA Santacruz [facility] RAD ACUTE CONFUSION [id number] 08/15/2016 07:31:00 ACT Outpatient JONATHAN SY [facility] CARD ,CAD,CAROTID ARTERY STENOSIS,GERD [id number] 07/06/2015 08:25:00 ACT Outpatient DONNELL SAUCEDA, MADISYN Church [facility] CARD ,CAD,CP SYNDROME,HYPERLIPADEMA [id number] 07/06/2015 08:25:00 Document Registration [id number] 02/21/2014 15:29:00 Document Registration [id number] 10/16/2012 11:00:00 Document Registration [id number] 11/22/2011 11:13:00 Document Registration [id number] 11/17/2011 08:02:00 Document Registration [id number] 02/26/2011 03:38:00 Document Registration [id number] 02/24/2011 14:30:00 Document Registration [id number] 11/24/2010 05:32:00 Document Registration [id number] 11/23/2010 07:07:00 Document Registration [id number] 11/15/2010 07:08:00 Document Registration [id number] 11/11/2010 13:19:00 Document Registration [id number] 10/04/2010 07:45:00 Document Registration
== END 2016-10-04 11:30 | disposition home or self-care (01) | DRG 639 ==
LOC: EDUNIT# 06:04 → ER 06:06 → ICU 07:30
PROVIDERS: ADMIT Internal Medicine; ATTEND Internal Medicine
DX: E11.65 Type 2 diabetes mellitus with hyperglycemia (principal); E86.0 Dehydration; E87.6 Hypokalemia; R00.0 Tachycardia, unspecified; I25.10 Atherosclerotic heart disease of native coronary artery without angina pectoris; I10 Essential (primary) hypertension; E03.9 Hypothyroidism, unspecified; K21.9 Gastro-esophageal reflux disease without esophagitis; E78.5 Hyperlipidemia, unspecified; I35.0 Nonrheumatic aortic (valve) stenosis; G47.33 Obstructive sleep apnea (adult) (pediatric); Z95.5 Presence of coronary angioplasty implant and graft; Z79.4 Long term (current) use of insulin; Z87.891 Personal history of nicotine dependence
CPT/HCPCS: 36415; 70450; 71010; 80053; 81000; 82805; 82962; 83036; 83690; 84443; 84484; 85025; 87077; 87088; 87186; 93005; 96361; 96365; 96375

== ENCOUNTER → 2016-10-05 | Outpatient (CLI) | payer OTHER, MEDICARE ==
[~2016-10-05] MED LIST changes: +ATOR10TA66 PO; +HYDR25TA4 PO; +INSU100I29 SQ; +LEVO100T7 PO; +METO-274 PO; +PANT40TA3 PO; +SUCR1TAB PO
--- NOTE | 2016-10-05 12:11 | Diagnostic Imaging Report ---
INDICATION: Screen for MRI. History of left-sided enucleation. FINDINGS: A lateral and AP radiograph over the orbits demonstrates no abnormal metallic density to suggest presence of orbital metallic foreign body. Sinuses appear clear. Patient is essentially edentulous. IMPRESSION: No radiographic evidence to suggest presence of orbital metallic foreign body. Dictated by: Dictated on workstation # [id number]
--- NOTE | 2016-10-05 13:57 | Diagnostic Imaging Report ---
PROCEDURE: MR imaging of the brain without contrast. TECHNIQUE: Multiplanar, multisequence MR imaging of the brain was performed without contrast. INDICATION: Confusion. FINDINGS: There are no previous MRI examinations available for comparison. The CT head exam performed on 10/03/2016 failed to show any sign of an acute intracranial abnormality. The CT exam did note a prior left orbital exenteration. On this study, there is no abnormal signal arising from the brain on the diffusion series to indicate an area of acute ischemia. There is no mass, shift of the midline, or hemorrhage to suggest an acute intracranial abnormality. The ventricles are not abnormally dilated. The FLAIR axial series does show an isolated 6 mm rounded area of increased signal near the archer-white junction of the left parietal lobe at the level of the lateral ventricles. There is a similar-appearing but much smaller increased signal in the archer-white junction of the right frontal lobe at the same level. These findings are nonspecific but could be secondary to encephalomalacia from microvascular ischemia. There is also cortical atrophy present. The degree of atrophy is consistent with the patient's age. The sella is not enlarged and the expected carotid flow voids are evident bilaterally. As noted on the prior exam, there has been a left orbital exenteration procedure. The right globe is unremarkable. The optic chiasm is undisturbed. The sinuses are generally clear. IMPRESSION: 1. There is no evidence for an acute intracranial abnormality. In particular, there is no sign of an area of acute ischemia. 2. The small areas of altered signal in the periventricular white matter bilaterally are nonspecific but may be secondary to encephalomalacia from microvascular ischemia. 3. 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 Dictated by: Dictated on workstation # [id number]
== END ==
LOC: RAD 11:33
PROVIDERS: ATTEND Family Medicine
DX: H53.9 Unspecified visual disturbance (principal); R41.0 Disorientation, unspecified
CPT/HCPCS: 70250; 70551

== ENCOUNTER 2016-10-28 12:45 | Outpatient (RCR) | payer OTHER, MEDICARE | END 2016-11-01 14:12 | disposition home or self-care (01) | PROVIDERS: ATTEND Orthopaedic Surgery | DX: S42.301D Unspecified fracture of shaft of humerus, right arm, subsequent encounter for fracture with routine healing (principal); M25.642 Stiffness of left hand, not elsewhere classified ==

== ENCOUNTER 2017-01-19 12:53 | Outpatient (RCR) | payer OTHER, MEDICARE ==
[~2017-01-19 12:53] MED LIST changes: -METO-274 PO; +METO-395 PO
== END 2017-01-30 | disposition home or self-care (01) ==
PROVIDERS: ATTEND Orthopaedic Surgery
DX: S42.301D Unspecified fracture of shaft of humerus, right arm, subsequent encounter for fracture with routine healing (principal); M25.642 Stiffness of left hand, not elsewhere classified

== ENCOUNTER 2017-05-22 14:20 | Emergency (ER) | payer MEDICARE, OTHER ==
[~2017-05-22] VITALS: Ht 165.1 cm; Wt 77.1 kg
[2017-05-22] MEDS ORDERED: NS IV 1000 ML 1,000 ML IV ONE (14:43)
[2017-05-22] MEDS ORDERED: ONDANSETRON 4 MG/2 ML (SDV) Z0FRAN IVP PRN (14:45)
[2017-05-22] MEDS ORDERED: FAMOTIDINE 20MG/2ML IV (PEPCID) IVP ONE (14:45)
--- NOTE | 2017-05-22 14:50 | ED GI ---
General Chief Complaint: Abdominal/GI Problems Stated Complaint: VOMITING Source of Information: Patient, Other Exam Limitations: No Limitations History of Present Illness Time Seen By Provider: 14:41 Initial Comments Patient has ER by private conveyance with a significant other with a chief complaint of for the past 5 days she is been experiencing nausea and vomiting and epigastric abdominal discomfort. She has no coronary history however she has had a gastric bypass in the 80s as well as her gallbladder and appendix out. She has a history of ulcers for which she is been on Protonix but for the past week she does not now take her protonic for any other medications including her metformin due to her nausea and vomiting. She has been anorexic and had poor fluid intake. She feels very dry. 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 2 days prior to the symptoms starting she was seen in her doctor's office for routine checkup and everything was okay at that time. She's had no fevers or chills. She denies rash , cough, shortness of breath, chest pain, history of coronary artery disease. She denies diarrhea or constipation. Patient states she's not been ill take her insulin either for the past several days and she is been drinking a lot of Gatorade to try and rehydrate herself. She is not drinking sugar-free Gatorade. She has never had DKA or HHS. Allergies and Home Medications Allergies Coded Allergies: Penicillins (Unverified Allergy, Severe, RASH, 09/03/07) pt reports generalized edema to the point pt can't make a fist Sulfa (Sulfonamide Antibiotics) (Unverified Allergy, Severe, RASH, 09/03/07) severe generalized edema cephalexin (Unverified Allergy, Mild, RASH, 09/03/07) Home Medications Atorvastatin Calcium 10 Mg Tablet, 10 MG PO HS, (Reported) Gabapentin 300 Mg Capsule, 300 MG PO TID, (Reported) Hydrochlorothiazide 25 Mg Tablet, 25 MG PO DAILY, (Reported) Insulin Detemir 100 U/Ml Vial, 10 UNITS SQ HS, (Reported) Insulin Detemir 100 Unit/1 Ml Insuln.pen, 12 UNITS SQ DAILY, (Reported) Insulin Glulisine 100 U/Ml Vial, 4 UNITS SQ AC, (Reported) LAST FILL DATE UNKNOWN Levothyroxine Sodium 100 Mcg Tablet, 100 MCG PO DAILY, (Reported) Metformin Hcl 500 Mg Tablet, 500 MG PO BID, (Reported) LAST FILLED 03/28/16 #180 Metoprolol Succinate 100 Mg Tab.er.24h, 100 MG PO HS, (Reported) Multivitamin 1 Each Tablet, 1 TAB PO DAILY, (Reported) Pantoprazole Sodium 40 Mg Tablet.dr, 40 MG PO DAILY, (Reported) Sucralfate 1 Gm Tablet, 1 GM PO HS, (Reported) Review of Systems Constitutional: No chills, No diaphoresis, No fever, malaise EENTM: No Blurred Vision, No Double Vision Respiratory: Denies Cough, Denies Shortness of Air Cardiovascular: Denies Chest Pain, Denies Lightheadedness, Denies Syncope Gastrointestinal: See HPI, Denies Abdomen Distended, Abdominal Pain, Denies Constipated, Denies Diarrhea, Nausea, Poor Appetite, Poor Fluid Intake, Vomiting Genitourinary: Denies Burning, Denies Discharge Musculoskeletal: No back pain, No joint pain Skin: No pruritus, No rash Psychiatric/Neurological: Denies Headache, Denies Numbness, Denies Paresthesia Past Gwbfjyz-Cgkcuv-Paamgp Hx Patient Social History Alcohol Use: Denies Use Recreational Drug Use: No Smoking Status: Former Smoker Former Smoker, Quit: Mar 09, 2015 Recent Hopitalizations: Yes (1989) Immunizations Up To Date Tetanus Booster (TDap): Less than 5yrs PED Vaccines UTD: No Date of Influenza Vaccine: May 02, 2016 Surgeries History of Surgeries: Yes (appendectomy and gallbladder, GASTROPLASTY) Surgeries: Appendectomy, Coronary Stent, Gallbladder, Orthopedic Respiratory History of Respiratory Disorde: No Cardiovascular History of Cardiac Disorders: Yes (STENTS) Cardiac Disorders: Coronary Artery Disease, Heart Murmur, Hypertension Neurological History of Neurological Disord: No Reproductive System Hx Reproductive Disorders: No Gastrointestinal History of Gastrointestinal Di: Yes Gastrointestinal Disorders: Gastroesophageal Reflux Musculoskeletal History of Musculoskeletal Dis: No Endocrine History of Endocrine Disorders: Yes Endocrine Disorders: Diabetes, Insulin dep Cancer History of Cancer: No Psychosocial History of Psychiatric Problem: No Integumentary History of Skin or Integumenta: No Blood Transfusions History of Blood Disorders: No Family Medical History Family Medial History: Breast lump 19 MOTHER, Onset:Unknown Cardiovascular disease 19 FATHER, , Age:88, Onset:Unknown FH: hypothyroidism 19 MOTHER, Onset:Unknown FH: renal failure 19 MOTHER, Onset:Unknown Heart murmur 19 MOTHER, Onset:Unknown Prostatitis 19 FATHER, , Age:88, Onset:Unknown Physical Exam Vital Signs VS - Last 72 Hours, by Label 05/22/17 14:40 Temp 97.5 Pulse 115 Resp 18 B/P (MAP) 142/100 Pulse Ox 98 O2 Delivery Room Air Capillary Refill : General Appearance: WD/WN, moderate distress HEENT: PERRL/EOMI, pharynx normal Neck: non-tender, full range of motion, normal inspection Respiratory: chest non-tender, lungs clear, normal breath sounds, no respiratory distress, no accessory muscle use Cardiovascular: normal peripheral pulses, regular rate, rhythm, no edema Peripheral Pulses: 2+ Radial Pulses (R), 2+ Radial Pulses (L) Gastrointestinal: normal bowel sounds, soft, tenderness (diffusely but especially in the left upper quadrant and epigastric region. Negative for Cantrell sign.) Extremities: non-tender, normal inspection, normal capillary refill Back: normal inspection, no CVA tenderness Neurologic/Psychiatric: alert, oriented x 3, other (tearful during interrogation.) Skin: normal color, warm/dry Focused Exam Evaluation Lactate Level Laboratory Tests 05/22/17 15:12: Lactic Acid Level 1.17 Lactic Acid Level Laboratory Tests Test 05/22/17 15:12 Lactic Acid Level 1.17 MMOL/L (0.50-2.00) Progress/Results/Core Measures Results/Orders Lab Results Laboratory Tests Test 05/22/17 14:20 05/22/17 14:27 05/22/17 15:12 05/22/17 15:35 Range/Units Prothrombin Time 13.3 12.2-14.7 SEC INR Comment 1.0 0.8-1.4 Activated Partial Thromboplast Time 30 24-35 SEC Sodium Level 140 135-145 MMOL/L Potassium Level 3.5 L 3.6-5.0 MMOL/L Chloride Level 96 L 98-107 MMOL/L Carbon Dioxide Level 22 21-32 MMOL/L Anion Gap 22 H 5-14 MMOL/L Blood Urea Nitrogen 18 7-18 MG/DL Creatinine 0.97 0.60-1.30 MG/DL Estimat Glomerular Filtration Rate 57 BUN/Creatinine Ratio 19 Glucose Level 425 *H 70-105 MG/DL Calcium Level 10.2 H 8.5-10.1 MG/DL Magnesium Level 1.5 L 1.8-2.4 MG/DL Total Bilirubin 0.6 0.1-1.0 MG/DL Aspartate Amino Transf (AST/SGOT) 13 5-34 U/L Alanine Aminotransferase (ALT/SGPT) 11 0-55 U/L Alkaline Phosphatase 82 40-136 U/L Troponin I < 0.30 <0.30 NG/ML Total Protein 8.4 H 6.4-8.2 GM/DL Albumin 4.2 3.2-4.5 GM/DL Lipase < 4 L 8-78 U/L White Blood Count 10.3 4.3-11.0 10^3/uL Red Blood Count 4.82 4.35-5.85 10^6/uL Hemoglobin 14.9 11.5-16.0 G/DL Hematocrit 44 35-52 % Mean Corpuscular Volume 91 80-99 FL Mean Corpuscular Hemoglobin 31 25-34 PG Mean Corpuscular Hemoglobin Concent 34 32-36 G/DL Red Cell Distribution Width 15.1 H 10.0-14.5 % Platelet Count 435 H 130-400 10^3/uL Mean Platelet Volume 9.2 7.4-10.4 FL Neutrophils (%) (Auto) 71 42-75 % Lymphocytes (%) (Auto) 20 12-44 % Monocytes (%) (Auto) 8 0-12 % Eosinophils (%) (Auto) 1 0-10 % Basophils (%) (Auto) 1 0-10 % Neutrophils # (Auto) 7.3 1.8-7.8 X 10^3 Lymphocytes # (Auto) 2.0 1.0-4.0 X 10^3 Monocytes # (Auto) 0.8 0.0-1.0 X 10^3 Eosinophils # (Auto) 0.1 0.0-0.3 10^3/uL Basophils # (Auto) 0.1 0.0-0.1 10^3/uL Lactic Acid Level 1.17 0.50-2.00 MMOL/L Blood Gas Puncture Site LEFT RADIAL Blood Gas Patient Temperature 97.5 Arterial Blood pH 7.45 H 7.37-7.43 Arterial Blood Partial Pressure CO2 34 L 35-45 MMHG Arterial Blood Partial Pressure O2 70 L 79-93 MMHG Arterial Blood HCO3 23 23-27 MMOL/L Arterial Blood Total CO2 24.4 21.0-31.0 MMOL/L Arterial Blood Oxygen Saturation 97 94-100 % Arterial Blood Base Excess -0.3 -2.5-2.5 MMOL/L Lv Test POSITIVE Blood Gas Ventilator Setting NO Blood Gas Inspired Oxygen ROOM AIR My Orders Orders - DILLON GILLIAM Ct Abdomen/Pelvis W (05/22/17 14:43) Lipase (05/22/17 14:43) Magnesium (05/22/17 14:43) Ua Culture If Indicated (05/22/17 14:43) Saline Lock/Iv-Start (05/22/17 14:43) Ns Iv 1000 Ml (Sodium Chloride 0.9%) (05/22/17 14:43) Cbc With Automated Diff (05/22/17 14:43) Comprehensive Metabolic Panel (05/22/17 14:43) Lactic Acid Analyzer (05/22/17 14:43) Blood Culture (05/22/17 14:43) Sputum Culture (05/22/17 14:43) Protime With Inr (05/22/17 14:43) Partial Thromboplastin Time (05/22/17 14:43) Chest 1 View, Ap/Pa Only (05/22/17 14:43) O2 (05/22/17 14:43) Ondansetron Injection (Zofran Injectio (05/22/17 14:45) Saline Lock/Iv-Start (05/22/17 14:43) Saline Lock/Iv-Start (05/22/17 14:43) Troponin I (05/22/17 14:43) Vital Signs Adult Sepsis Patie Q1H (05/22/17 14:43) Remove Rings In Anticipation O (05/22/17 14:43) Ekg Tracing (05/22/17 14:43) Famotidine Injection (Pepcid Injection) (05/22/17 14:45) Iohexol Injection (Omnipaque 350 Mg/Ml 1 (05/22/17 15:30) Ns (Ivpb) (Sodium Chloride 0.9% Ivpb Bag (05/22/17 15:30) Arterial Blood Gas (05/22/17 15:20) Magnesium 1 Gm/100 Ml Ivpb (Magnesium Lopez (05/22/17 16:00) Potassium Cl 10meq/50ml Ivpb (Kcl 10 Meq (05/22/17 16:00) Lidocaine 2% Viscous 15 Ml (Xylocaine Vi (05/22/17 17:30) Mylanta Po (05/22/17 17:30) Medications Given in ED Current Medications Medications Dose Ordered Sig/Rhianna Route Start Time Stop Time Status Last Admin Dose Admin Famotidine 20 mg ONCE ONCE IVP 05/22/17 14:45 05/22/17 14:49 DC 05/22/17 15:27 20 MG Iohexol 100 ml ONCE ONCE IV 05/22/17 15:30 05/22/17 15:31 DC 05/22/17 16:24 100 ML Magnesium Sulfate/ Dextrose 100 ml @ 100 mls/hr ONCE ONCE IV 05/22/17 16:00 05/22/17 16:59 DC 05/22/17 16:03 100 MLS/HR Ondansetron HCl 4 mg ONCE PRN IVP 05/22/17 14:45 05/22/17 15:29 DC 05/22/17 15:26 4 MG Potassium Chloride 50 ml @ 50 mls/hr ONCE ONCE IV 05/22/17 16:00 05/22/17 16:59 DC 05/22/17 16:03 50 MLS/HR Sodium Chloride 100 ml ONCE ONCE IV 05/22/17 15:30 05/22/17 15:31 DC 05/22/17 16:24 80 ML Sodium Chloride 1,000 ml @ 0 mls/hr Q0M ONCE IV 05/22/17 14:43 05/22/17 14:48 DC 05/22/17 15:26 999 MLS/HR Vital Signs/I&O Vital Sign - Last 12Hours 05/22/17 14:40 Temp 97.5 Pulse 115 Resp 18 B/P (MAP) 142/100 Pulse Ox 98 O2 Delivery Room Air Progress Note #1: Time: 16:03 Progress Note 4 days of nausea vomiting and a high sugar. Unlikely be DKA however may just be because she's not been taking her insulin and she's been drinking the Gatorade but we will get an ABG to rule out acidosis. Patient does have an increased gap however her bicarbonate is within normal range at 22. We'll give her some fluids and Zofran and do a scan of her belly. Lipase is normal. Progress Note #2: Time: 17:25 Progress Note The patient's nausea has resolved. She still having a little burning sensation in the area of her epigastric region. This is probably due to the recent nausea vomiting and maybe some erosive gastritis versus esophagitis. This will need to be followed up outpatient and since johanne Joiner has a relationship with Dr. De La Rosa, general surgery who scoped her less than a year ago we will have her follow up outpatient there. We will give her a GI cocktail for temporary relief start her on Carafate and have her continue the Protonix that she is been neglecting for the last week. We will also send her home with [place] and return, since. She will also need to address her electrolytes by fixing her nausea and encouraging either multivitamins or just eating mineral rich foods. Diagnostic Imaging Diagonstic Imaging: CT (with contrast) Plain Films/CT/US/NM/MRI: abdomen, pelvis Comments VIA [facility]. [place], [place] NAME: CHLOE CHANEY [facility] REC#: [id number] PT STATUS: REG ER : 1950 PHYSICIAN: DILLON GILLIAM MD ADMIT DATE: 05/22/17/ER Draft Date of Exam:05/22/17 CT ABDOMEN/PELVIS W PROCEDURE: CT abdomen and pelvis with contrast. TECHNIQUE: Multiple contiguous axial images were obtained through the abdomen and pelvis after administration of intravenous contrast. INDICATION: Upper abdominal pain and nausea and vomiting. 100 mL of Omnipaque-350 is administered intravenously. FINDINGS: The lung bases appear clear. The liver demonstrates a hypodense lesion in the inferior aspect of the right lobe probably a small cyst. The spleen is not enlarged. Cholecystectomy clips are seen. There are also surgical clips adjacent to the stomach. Correlate with surgical history. The pancreas and adrenal glands appear unremarkable. The kidneys have symmetric enhancement and contrast excretion. Multiple simple renal cysts are noted. The urinary bladder appears unremarkable. The uterus and adnexa appear grossly unremarkable. There is no bowel obstruction. There is ectasia in the distal abdominal aorta measuring 2 cm. Extensive atherosclerotic ossifications are seen in the iliac arteries. There is no bowel obstruction. No significant free fluid or fluid collection in the abdomen or pelvis is seen. Diverticulosis in the sigmoid colon is noted with no evidence of diverticulitis. There is suggestion of a tiny fat-containing umbilical hernia. The lumbar spine demonstrates posterior fusion hardware involving L4 through S1 levels. IMPRESSION: No acute process. Dictated on workstation # [id number] Dict: 05/22/17 1640 Trans: 05/22/171656 [id number] Interpreted by: BILL PAGAN MD Electronically signed by: Reviewed: Reviewed by Me Diagonstic Imaging: Xray Plain Films/CT/US/NM/MRI: chest Comments NAME: CHLOE CHANEY [facility] REC#: [id number] PHYSICIAN: DILLON GILLIAM MD CC: CRISTINA WHITE MD; DILLON GILLIAM Page 1 of 1 RADIOLOGY REPORT VIA [place], [place] CC: CRISTINA WHITE MD; DILLON GILLIAM Page 1 of 1 RADIOLOGY REPORT NAME: CHLOE CHANEY [facility] REC#: [id number] PT STATUS: REG ER : 1950 PHYSICIAN: DLILON GILLIAM MD ADMIT DATE: 05/22/17/ER Signed Date of Exam: 05/22/17 CHEST 1 VIEW, AP/PA ONLY INDICATION: Abdominal pain. Intermittent vomiting. FINDINGS: A single view of the chest shows normal heart size and vascularity. The lungs are clear. There is no effusion or pneumothorax. There is no acute bony abnormality. There are changes of prior surgery in the proximal left humerus. IMPRESSION: No acute abnormality is seen with no change from 10/03/2016. Dictated by: Dictated on workstation # [id number] Dict: 05/22/17 1647 Trans: 05/22/171656 Interpreted by: CRISTINA WHITE MD Electronically signed by: CRISTINA WHITE MD 05/22/171656 Reviewed: Reviewed by Me Departure Impression Impression: Primary Impression: Gastroenteritis Additional Impressions: Hypokalemia Hypomagnesemia Disposition: 01 HOME, SELF-CARE Condition: Stable Departure-Patient Inst. Decision time for Depature: 17:27 Referrals: ABIMBOLA COURTNEY MD (PCP/Family) Primary Care Physician Patient Instructions: Viral Gastroenteritis, Adult (DC) Add. Discharge Instructions: I encourage you to drink plenty of fluids to catch up what you have lost. Gatorade is okay but make sure it is sugar-free. Resume taking your insulin with meals. If you're having nausea take one tablet of Zofran every [address] under the tongue and allowed to absorb the mouth as needed. Continue taking your Protonix. Start taking the Carafate 1 tablet 4 times a day with meals for the next [address] De La Rosa at [phone] and get an appointment to be seen for further workup of your possible gastritis. Follow-up with your primary care physician this week or next for continued management of your symptoms. Return to the ER if you' re having significant nausea and vomiting that is not responding to the medicines or you are having chest pain, shortness of breath or other worrisome symptoms. All discharge instructions reviewed with patient and/or family. Voiced understanding. Scripts Ondansetron (Ondansetron Odt) 4 Mg Tab.rapdis 4 MG PO Q6H Y for NAUSEA/VOMITING, #20 TAB 0 Refills Prov: DILLON GILLIAM 05/22/17 Sucralfate (Carafate) 1 Gm Tablet 1 GM PO QID for 14 Days, #60 TAB 0 Refills Prov: DILLON GILLIAM 05/22/17 Copy Copies To 1: ABIMBOLA COURTNEY MD Copies To 2: MACHELLE DE LA ROSA MD, TITUS J May 22, 2017 14:49
[2017-05-22 14:59] LABS: BASOPHILS # (AUTO) 0.1 10^3/uL (0.0-0.1); BASOPHILS % (AUTO) 1 % (0-10); EOSINOPHILS # (AUTO) 0.1 10^3/uL (0.0-0.3); EOSINOPHILS % (AUTO) 1 % (0-10); LYMPHOCYTES % (AUTO) 20 % (12-44); MEAN CORPUSCULAR HEMOGLOBIN 31 PG (25-34); MEAN CORPUSCULAR HGB CONC 34 G/DL (32-36); MEAN CORPUSCULAR VOLUME 91 FL (80-99); MEAN PLATELET VOLUME 9.2 FL (7.4-10.4); MONOCYTES # (AUTO) 0.8 X 10^3 (0.0-1.0); MONOCYTES % (AUTO) 8 % (0-12); NEUTROPHILS # (AUTO) 7.3 X 10^3 (1.8-7.8); NEUTROPHILS % (AUTO) 71 % (42-75); PLATELET COUNT 435 10^3/uL (130-400); RED BLOOD COUNT 4.82 10^6/uL (4.35-5.85); RED CELL DISTRIBUTION WIDTH 15.1 % (10.0-14.5); WHITE BLOOD COUNT 10.3 10^3/uL (4.3-11.0)
[2017-05-22 15:07] LABS: PROTHROMBIN TIME PATIENT 13.3 SEC (12.2-14.7)
[2017-05-22 15:11] LABS: ALANINE AMINOTRANSFERASE 11 U/L (0-55); ALBUMIN 4.2 GM/DL (3.2-4.5); ANION GAP 22 MMOL/L (5-14); ASPARTATE AMINO TRANSFERASE 13 U/L (5-34); BILIRUBIN,TOTAL 0.6 MG/DL (0.1-1.0); BLOOD UREA NITROGEN 18 MG/DL (7-18); BUN/CREATININE RATIO 19; CALCIUM 10.2 MG/DL (8.5-10.1); CARBON DIOXIDE 22 MMOL/L (21-32); CHLORIDE 96 MMOL/L (98-107); CREATININE SERUM 0.97 MG/DL (0.60-1.30); GFR ESTIMATED 57; LIPASE < 4 U/L (8-78); MAGNESIUM 1.5 MG/DL (1.8-2.4); POTASSIUM 3.5 MMOL/L (3.6-5.0); SODIUM 140 MMOL/L (135-145); TOTAL PROTEIN 8.4 GM/DL (6.4-8.2)
[2017-05-22 15:16] LABS: TROPONIN I < 0.30 NG/ML (<0.30)
[2017-05-22 15:21] LABS: GLUCOSE 425 MG/DL (70-105)
[2017-05-22] MEDS ORDERED: IOHEXOL 350 MG/ML 100 ML (OMNIPAQUE 350) VIAL IV ONE (15:30)
[2017-05-22] MEDS ORDERED: NS 100 ML (IVPB) BAG IV ONE (15:30)
[2017-05-22 15:43] LABS: ABG BASE EXCESS -0.3 MMOL/L (-2.5-2.5); ABG HCO3 23 MMOL/L (23-27); ABG OXYGEN SATURATION 97 % (94-100); ABG PCO2 34 MMHG (35-45); ABG PH 7.45 (7.37-7.43); ABG PO2 70 MMHG (79-93); ABG TCO2 24.4 MMOL/L (21.0-31.0)
[2017-05-22 15:49] LABS: ALLENS TEST POSITIVE; PATIENT TEMP 97.5
[2017-05-22] MEDS ORDERED: POTASSIUM CL 10MEQ/50ML IVPB 50 ML IV ONE (16:00)
[2017-05-22] MEDS ORDERED: MAGNESIUM 1 GM/100 ML IVPB 100 ML IV ONE (16:00)
--- NOTE | 2017-05-22 16:58 | Diagnostic Imaging Report ---
PROCEDURE: CT abdomen and pelvis with contrast. TECHNIQUE: Multiple contiguous axial images were obtained through the abdomen and pelvis after administration of intravenous contrast. INDICATION: Upper abdominal pain and nausea and vomiting. 100 mL of Omnipaque-350 is administered intravenously. FINDINGS: The lung bases appear clear. The liver demonstrates a hypodense lesion in the inferior aspect of the right lobe probably a small cyst. The spleen is not enlarged. Cholecystectomy clips are seen. There are also surgical clips adjacent to the stomach. Correlate with surgical history. The pancreas and adrenal glands appear unremarkable. The kidneys have symmetric enhancement and contrast excretion. Multiple simple renal cysts are noted. The urinary bladder appears unremarkable. The uterus and adnexa appear grossly unremarkable. There is no bowel obstruction. There is ectasia in the distal abdominal aorta measuring 2 cm. Extensive atherosclerotic ossifications are seen in the iliac arteries. There is no bowel obstruction. No significant free fluid or fluid collection in the abdomen or pelvis is seen. Diverticulosis in the sigmoid colon is noted with no evidence of diverticulitis. There is suggestion of a tiny fat-containing umbilical hernia. The lumbar spine demonstrates posterior fusion hardware involving L4 through S1 levels. IMPRESSION: No acute process. Dictated by: Dictated on workstation # [id number]
--- NOTE | 2017-05-22 16:58 | Diagnostic Imaging Report ---
INDICATION: Abdominal pain. Intermittent vomiting. FINDINGS: A single view of the chest shows normal heart size and vascularity. The lungs are clear. There is no effusion or pneumothorax. There is no acute bony abnormality. There are changes of prior surgery in the proximal left humerus. IMPRESSION: No acute abnormality is seen with no change from 10/03/2016. Dictated by: Dictated on workstation # [id number]
[2017-05-22] MEDS ORDERED: LIDOCAINE 2% VISCOUS 15 ML UDC PO ONE (17:30)
[2017-05-22] MEDS ORDERED: ANTACID SUSP 30 ML UDC (MYLANTA) PO ONE (17:30)
[2017-05-22] MEDS ORDERED: SUCR1TAB36 PO (17:32)
[2017-05-22] MEDS ORDERED: ONDA4TAB11 PO (17:32)
[2017-05-22 18:14] VITALS: BP 132/86
== END 2017-05-22 18:14 | disposition home or self-care (01) ==
LOC: EDUNIT# 14:20 → ER 14:21
DX: K52.9 Noninfective gastroenteritis and colitis, unspecified (principal); E87.6 Hypokalemia; E83.42 Hypomagnesemia; E11.9 Type 2 diabetes mellitus without complications; K21.9 Gastro-esophageal reflux disease without esophagitis; I25.10 Atherosclerotic heart disease of native coronary artery without angina pectoris; I10 Essential (primary) hypertension; Z90.49 Acquired absence of other specified parts of digestive tract; Z95.5 Presence of coronary angioplasty implant and graft; Z87.891 Personal history of nicotine dependence; Z79.4 Long term (current) use of insulin
CPT/HCPCS: 36415; 71010; 74177; 80053; 82805; 83605; 83690; 83735; 84484; 85025; 85610; 85730; 87040; 93005; 96361; 96365; 96367; 96375

== ENCOUNTER → 2017-07-14 | Outpatient (CLI) | payer MEDICARE, OTHER ==
[~2017-07-14] MED LIST changes: +ONDA4TAB11 PO; +SUCR1TAB36 PO
== END ==
LOC: CARD 09:27
PROVIDERS: ATTEND Internal Medicine Cardiovascular Disease
DX: I35.0 Nonrheumatic aortic (valve) stenosis (principal); I25.10 Atherosclerotic heart disease of native coronary artery without angina pectoris; I65.23 Occlusion and stenosis of bilateral carotid arteries; R07.9 Chest pain, unspecified; K21.9 Gastro-esophageal reflux disease without esophagitis; E78.2 Mixed hyperlipidemia; I49.3 Ventricular premature depolarization
CPT/HCPCS: 93306

== ENCOUNTER → 2018-01-02 | Outpatient (CLI) | payer MEDICARE, OTHER ==
[2018-01-02 08:49] LABS: HEMOGLOBIN 13.4 G/DL (11.5-16.0); MEAN PLATELET VOLUME 8.3 FL (7.4-10.4); RED BLOOD COUNT 4.46 10^6/uL (4.35-5.85); WHITE BLOOD COUNT 6.8 10^3/uL (4.3-11.0)
[2018-01-02 09:13] LABS: ALANINE AMINOTRANSFERASE 7 U/L (0-55); ALBUMIN 3.9 GM/DL (3.2-4.5); ALKALINE PHOSPHATASE 81 U/L (40-136); BILIRUBIN,TOTAL 0.5 MG/DL (0.1-1.0); BUN/CREATININE RATIO 16; CALCIUM 9.8 MG/DL (8.5-10.1); CARBON DIOXIDE 25 MMOL/L (21-32); CHLORIDE 96 MMOL/L (98-107); CREATININE SERUM 0.82 MG/DL (0.60-1.30); GFR ESTIMATED > 60; GLUCOSE 331 MG/DL (70-105); POTASSIUM 3.9 MMOL/L (3.6-5.0); SODIUM 133 MMOL/L (135-145); TOTAL PROTEIN 7.3 GM/DL (6.4-8.2)
[2018-01-02 09:18] LABS: BILIRUBIN,URINE NEGATIVE (NEGATIVE); CLARITY,URINE VERY CLOUDY; COLOR,URINE YELLOW; GLUCOSE, URINE (UA) 3+ (NEGATIVE); KETONES,URINE 1+ (NEGATIVE); LEUKOCYTE ESTERASE ,URINE 2+ (NEGATIVE); NITRITE,URINE POSITIVE (NEGATIVE); PH,URINE 5 (5-9); PROTEIN,URINE 2+ (NEGATIVE); UROBILINOGEN,URINE NORMAL (NORMAL)
[2018-01-02 09:26] LABS: BACTERIA,URINE LARGE /HPF
--- NOTE | 2018-01-02 09:32 | Diagnostic Imaging Report ---
INDICATION: Preprocedural evaluation. COMPARISON: 05/22/2017. FINDINGS: Two views of the chest are obtained. Heart size is normal. The pulmonary vessels appear unremarkable. There is no pneumothorax, mediastinal widening or pleural fluid. Lungs are clear. There are moderate degenerative changes in the spine. There is postoperative change in the left humerus. IMPRESSION: No acute abnormalities demonstrated. No interval change from the prior study. Dictated by: Dictated on workstation # [id number]
== END ==
LOC: CARD 08:31
PROVIDERS: ATTEND Thoracic Surgery (Cardiothoracic Vascular Surgery)
DX: Z01.810 Encounter for preprocedural cardiovascular examination (principal); Z01.811 Encounter for preprocedural respiratory examination; Z01.812 Encounter for preprocedural laboratory examination; I70.213 Atherosclerosis of native arteries of extremities with intermittent claudication, bilateral legs; R82.99 Other abnormal findings in urine
CPT/HCPCS: 36415; 71046; 80053; 81000; 85027; 87077; 87088; 87186; 93005

== ENCOUNTER → 2018-01-10 | Outpatient (CLI) | payer MEDICARE, OTHER ==
[2018-01-10 09:15] LABS: BILIRUBIN,URINE NEGATIVE (NEGATIVE); CLARITY,URINE CLEAR; COLOR,URINE YELLOW; GLUCOSE, URINE (UA) NEGATIVE (NEGATIVE); KETONES,URINE NEGATIVE (NEGATIVE); LEUKOCYTE ESTERASE ,URINE 1+ (NEGATIVE); NITRITE,URINE NEGATIVE (NEGATIVE); PH,URINE 7 (5-9); PROTEIN,URINE NEGATIVE (NEGATIVE); UROBILINOGEN,URINE NORMAL (NORMAL)
[2018-01-10 09:41] LABS: BACTERIA,URINE TRACE /HPF; RBC,URINE 0-2 /HPF; SQUAMOUS EPITHELIAL CELL,UR 0-2 /HPF
[2018-01-10 09:42] LABS: AMORPHOUS SEDIMENT,UR FEW AMOR URATES /LPF
== END ==
LOC: LAB 08:55
PROVIDERS: ATTEND Thoracic Surgery (Cardiothoracic Vascular Surgery)
DX: N39.0 Urinary tract infection, site not specified (principal)
CPT/HCPCS: 81000

== ENCOUNTER 2018-06-05 05:31 | Outpatient (CLI) | payer MEDICARE, OTHER ==
[~2018-06-05] VITALS: Ht 162.6 cm; Wt 67.1 kg
[2018-06-05] MEDS ORDERED: LEVO112T55 PO (09:30)
[2018-06-05] MEDS ORDERED: METO-370 PO (09:30)
[2018-06-05] MEDS ORDERED: INSU100I14 SQ (09:30)
[2018-06-05] MEDS ORDERED: INSU100I29 SQ (09:30)
[2018-06-05] MEDS ORDERED: METF-397 PO (09:30)
[2018-06-05] MEDS ORDERED: CLOP75TA69 PO (09:30)
== END 2018-06-05 09:42 | disposition home or self-care (01) ==
LOC: PREOP 05:31
PROVIDERS: ATTEND Specialist
DX: Z01.818 Encounter for other preprocedural examination (principal)

== ENCOUNTER 2018-06-06 08:20 | Day surgery (SDC) | payer MEDICARE, OTHER ==
[~2018-06-06] VITALS: Ht 162.6 cm; Wt 67.1 kg
[~2018-06-06 08:20] MED LIST changes: +CLOP75TA69 PO; +INSU100I14 SQ; +LEVO112T55 PO; +METF-397 PO; +METO-370 PO
[2018-06-06 08:31] VITALS: BP 159/88
[2018-06-06] MEDS: TETRACAINE 0.5% OPHTH SOLN 4 ML BTL (SINGLE DOSE ONLY) OU PRN ×3 (08:38→09:05)
[2018-06-06] MEDS: TROPICAMIDE 1% OPH SOLN (MYDRIACYL) 15 ML BTL OU PRN ×3 (08:39→09:06)
[2018-06-06] MEDS: PHENYLEPHRINE 10% OPHTH (NEO-SYN) 5 ML BTL OU PRN ×3 (08:39→09:05)
--- OUTSIDE RECORDS SUMMARY | 2018-06-06 09:49 | XMS REPORT ---
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 Active 89427028 Problem PVD (peripheral vascular disease) I73.9 Active 498883569 Problem Acquired hypothyroidism E03.9 Active 631561820 ALLERGIES No Information ENCOUNTERS Encounter Location Date Diagnosis [place] [address] [address] Jun, [place] [address] [address] 24 Apr, 2018 Gastroesophageal reflux disease without esophagitis K21.9 [facility] [address] [place] [id number] [place] [address] 21285- 5649 18 Apr, 2018 Acquired hypothyroidism E03.9 [facility] [address] [address] 15 Apr, 2018 Encounter for immunization Z23 [facility] [address] [address] 15 Apr, 2018 Type 2 diabetes mellitus with unspecified complications E11.8 [facility] [address] [address] 09 Apr, 2018 [facility] [address] [address] 2283 Mar, [facility] [address] [facility] [id number] [place] [address] Mar, [facility] [address] [facility] [id number] [address] Mar, Type 2 diabetes mellitus with unspecified complications E11.8 ; penitentiary current use of insulin Z79.4 ; PVD (peripheral vascular disease) I73.9 ; Acquired hypothyroidism E03.9 ; Systolic murmur R01.1 ; Gastroesophageal reflux disease without esophagitis K21.9 ; HTN, goal below 130/ 80 I10 and 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 IMMUNIZATIONS No Known Immunizations SOCIAL HISTORY Never Assessed REASON FOR VISIT Refill request PLAN OF CARE VITAL SIGNS MEDICATIONS Medication Instructions Dosage Frequency Start Date End Date Duration Status Protonix 20 MG Orally Once a day 1 tablet 24h 30 day(s) Active RESULTS No Results PROCEDURES No Known procedures INSTRUCTIONS MEDICATIONS ADMINISTERED No Known Medications MEDICAL (GENERAL) HISTORY Type Description Date Medical History Type 2 Diabetes Medical History Hypothyroidism Medical History PVCs Medical History Coronary Artery Disease Medical History Stomach Ulcers Medical History Heart murmur Medical History Seasonal Allergies Surgical History 3 stents placed in left thigh December 2017 Surgical History Appendectomy 1962 Surgical History Cholecystectomy 1984 Surgical History 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
--- OUTSIDE RECORDS SUMMARY | 2018-06-06 09:49 | XMS REPORT ---
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 Active 18635837 Problem PVD (peripheral vascular disease) I73.9 Active 375345459 Problem Acquired hypothyroidism E03.9 Active 937498537 ALLERGIES No Information ENCOUNTERS Encounter Location Date Diagnosis [place] [address] [place] [id number] [place] [address]- 5730 Jun, [place] [address] [place] [id number] [place] [address] 70810- 1252 Jun, [place] [address] [place] [id number] [place] [address] 95390- 4562 May, Gastroesophageal reflux disease without esophagitis K21.9 ; Type 2 diabetes mellitus with unspecified complications E11.8 ; PVD (peripheral vascular disease) I73.9 and HTN, goal below 130/80 I10 [place] [address] [place] [id number] [place] [address] 19841- 4152 May, [place] [address] [address] May, Type 2 diabetes mellitus with unspecified complications E11.8 [place] [address] [address]- 5[address] Apr, Gastroesophageal reflux disease without esophagitis K21.9 [place] [address] [place] [address] 61475- 9890 Apr, Acquired hypothyroidism E03.9 [place] [address] [place] [id number] [place] [address] 58410- 8036 Apr, Encounter for immunization Z23 [place] [address] [place] [id number] [place] [address] 23151- 6616 Apr, Type 2 diabetes mellitus with unspecified complications E11.8 [place] [address] [id number] [place] [address] 36760- 9979 Apr, [place] [address] [id number] [place] [address] 93197- 2843 Mar, [place] [address] [place] [id number] [place] [address] 10334- 1300 Mar, [place] [address] [place] [id number] [place] [address] 65984- 7985 Mar, Type 2 diabetes mellitus with unspecified complications E11.8 ; custodial current use of insulin Z79.4 ; PVD (peripheral vascular disease) I73.9 ; Acquired hypothyroidism E03.9 ; Systolic murmur R01.1 ; Gastroesophageal reflux disease without esophagitis K21.9 ; HTN, goal below 130/ 80 I10 and 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 IMMUNIZATIONS No Known Immunizations SOCIAL HISTORY Never Assessed REASON FOR VISIT Medication refill request PLAN OF CARE VITAL SIGNS MEDICATIONS Medication Instructions Dosage Frequency Start Date End Date Duration Status Toprol XL 50 MG Orally Once a day 1 tablet 24h Active Protonix 40 MG Orally Once a day 1 tablet 24h 30 day(s) Active Gabapentin 300 MG Orally Three times a day 1 capsule 8h Active Lipitor 10 MG Orally Once a day 1 tablet 24h Active Hydrochlorothiazide 25 MG Orally Once a day 1 tablet in the morning 24h Active RESULTS No Results PROCEDURES No Known procedures INSTRUCTIONS MEDICATIONS ADMINISTERED No Known Medications MEDICAL (GENERAL) HISTORY Type Description Date Medical History Type 2 Diabetes Medical History Hypothyroidism Medical History PVCs Medical History Coronary Artery Disease Medical History Stomach Ulcers Medical History Heart murmur Medical History Seasonal Allergies Surgical History 3 stents placed in left thigh December 2017 Surgical History Appendectomy 1963 Surgical History Cholecystectomy 1984 Surgical History 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
--- OUTSIDE RECORDS SUMMARY | 2018-06-06 09:49 | XMS REPORT ---
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 Active 04641151 Problem PVD (peripheral vascular disease) I73.9 Active 231434566 Problem Acquired hypothyroidism E03.9 Active 400297582 ALLERGIES No Information ENCOUNTERS Encounter Location Date Diagnosis [place] [address] [place] [id number] [place] [address]75- 0236 Jun, [place] [address] [place] [id number] [place] [address] 96837- 4866 Jun, [facility] [address] [place] [id number] [place] [address] 21410- 4231 May, [facility] [address] [place] [id number] [place] [address] 02035- 0619 May, [place] [address] [place] [id number] [place] [address] 85956- 6826 May, Type 2 diabetes mellitus with unspecified complications E11.8 [facility] [address] [address]- [address] Apr, Gastroesophageal reflux disease without esophagitis K21.9 [facility] [address] [address]- [address] Apr, Acquired hypothyroidism E03.9 [facility] [address] [place] [id number] [address] 15 Apr, 2018 Encounter for immunization Z23 [facility] [address] [address] 15 Apr, 2018 Type 2 diabetes mellitus with unspecified complications E11.8 [facility] [address] [address] 09 Apr, 2018 [facility] [address] [address] Mar, [place] [address] [place] [address] 61074- 4225 25 Mar, 2018 [facility] [address] [address] 20 Mar, 2018 Type 2 diabetes mellitus with unspecified complications E11.8 ; intermediate accountant current use of insulin Z79.4 ; PVD (peripheral vascular disease) I73.9 ; Acquired hypothyroidism E03.9 ; Systolic murmur R01.1 ; Gastroesophageal reflux disease without esophagitis K21.9 ; HTN, goal below 130/ 80 I10 and 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
--- OUTSIDE RECORDS SUMMARY | 2018-06-06 09:49 | XMS REPORT ---
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 Active 89482199 Problem PVD (peripheral vascular disease) I73.9 Active 737585593 Problem Acquired hypothyroidism E03.9 Active 539107410 ALLERGIES No Information ENCOUNTERS Encounter Location Date Diagnosis [place] [address] [address]- [address] Jun, [place] [address] 39669- 7687 Jun, [facility] [address] [address]- 6[address] Jun, Acquired hypothyroidism E03.9 [facility] [address] 48[address]- 57[address] May, Gastroesophageal reflux disease without esophagitis K21.9 ; Type 2 diabetes mellitus with unspecified complications E11.8 ; PVD (peripheral vascular disease) I73.9 and HTN, goal below 130/80 I10 [facility] [address] 29510- 7[address] May, [facility] [address] 60210- 1855 May, Type 2 diabetes mellitus with unspecified complications E11.8 [place] [address] [place] [id number] [place] [address] 20586- 2423 Apr, Gastroesophageal reflux disease without esophagitis K21.9 [facility] [address] [place] [id number] [place] [address] 63336- 5391 Apr, Acquired hypothyroidism E03.9 [place] [address] [address]- 7231 Apr, Encounter for immunization Z23 [place] [address] [place] [id number] [place] [address] 54787- 5431 Apr, Type 2 diabetes mellitus with unspecified complications E11.8 [place] [address] [place] [id number] [place] [address] 48042- 9735 Apr, [place] [address] [address]- 2446 Mar, [place] [address] [place] [id number] [place] [address] 08618- 4454 Mar, [place] [address] [place] [address] [id number] [place] [address] 51438- 1357 Mar, Type 2 diabetes mellitus with unspecified complications E11.8 ; alf current use of insulin Z79.4 ; PVD (peripheral vascular disease) I73.9 ; Acquired hypothyroidism E03.9 ; Systolic murmur R01.1 ; Gastroesophageal reflux disease without esophagitis K21.9 ; HTN, goal below 130/ 80 I10 and 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 IMMUNIZATIONS No Known Immunizations SOCIAL HISTORY Never Assessed REASON FOR VISIT Lab (walk-in) PLAN OF CARE Activity Details Pending Test TSH VITAL SIGNS MEDICATIONS Unknown Medications RESULTS No Results PROCEDURES Procedure Date Ordered Result Body Site LAB NOT BILLED BY [facility] Jun 04, 2018 INSTRUCTIONS MEDICATIONS ADMINISTERED No Known Medications MEDICAL (GENERAL) HISTORY Type Description Date Medical History Type 2 Diabetes Medical History Hypothyroidism Medical History PVCs Medical History Coronary Artery Disease Medical History Stomach Ulcers Medical History Heart murmur Medical History Seasonal Allergies Surgical History 3 stents placed in left thigh December 2017 Surgical History Appendectomy 1963 Surgical History Cholecystectomy 1985 Surgical History 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
--- OUTSIDE RECORDS SUMMARY | 2018-06-06 09:50 | XMS REPORT ---
Author Author SULEIMAN COOK [facility] Address [address] [place] [address] Care Team Providers Care Synthetic Cloth Binding Cutter Name Role Phone KELLY COOKTA Unavailable PROBLEMS Type Condition ICD9-CM Code VSI92-JE Code Onset Dates Condition Status SNOMED Code Problem HTN, goal below 130/80 I10 Active Problem Type 2 diabetes mellitus with unspecified complications E11.8 Active 50239995 Problem certified green building engineer current use of insulin Z79.4 Active 087372117 Problem Gastroesophageal reflux disease without esophagitis K21.9 Active 400123941 Problem 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 Active 68031052 Problem PVD (peripheral vascular disease) I73.9 Active 973028057 Problem Acquired hypothyroidism E03.9 Active 265285482 ALLERGIES No Information ENCOUNTERS Encounter Location Date Diagnosis [place] [id number] [place] [id number] [place] [address]- 9840 Jun, [place] [address] [place] [id number] [place] [address] 53474- 6984 Apr, [place] [address] [place] [id number] [place] [address] 37153- 9000 Mar, [place] [address] [place] [id number] [place] [address] 58924- 0465 Mar, [place] [address] [place] [id number] [place] [address] 80347- 1468 Mar, Type 2 diabetes mellitus with unspecified complications E11.8 ; senior living current use of insulin Z79.4 ; PVD (peripheral vascular disease) I73.9 ; Acquired hypothyroidism E03.9 ; Systolic murmur R01.1 ; Gastroesophageal reflux disease without esophagitis K21.9 ; HTN, goal below 130/ 80 I10 and 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
--- OUTSIDE RECORDS SUMMARY | 2018-06-06 09:50 | XMS REPORT ---
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 Active 60900524 Problem PVD (peripheral vascular disease) I73.9 Active 886947738 Problem Acquired hypothyroidism E03.9 Active 181774172 ALLERGIES No Information ENCOUNTERS Encounter Location Date Diagnosis [place] [address] [place] [address] [id number] [place] [address] 23423- 0968 Jun, [place] [address] [place] [id number] [place] [address] 92189- 2832 Mar, [place] [address] [place] [id number] [place] [address] 82562- 1340 Mar, [place] [address] [place] [id number] [place] [address] 19071- 9513 Mar, Type 2 diabetes mellitus with unspecified complications E11.8 ; snf current use of insulin Z79.4 ; PVD (peripheral vascular disease) I73.9 ; Acquired hypothyroidism E03.9 ; Systolic murmur R01.1 ; Gastroesophageal reflux disease without esophagitis K21.9 ; HTN, goal below 130/ 80 I10 and 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
--- OUTSIDE RECORDS SUMMARY | 2018-06-06 09:50 | XMS REPORT ---
Author Author SUELIMAN COOK [facility] Address [address] [place] [address] Care Team Providers Care Health Sanitarian Name Role Phone SULEIMAN COOK Unavailable PROBLEMS ALLERGIES No Information ENCOUNTERS IMMUNIZATIONS No Known Immunizations SOCIAL HISTORY No smoking Hx information available REASON FOR VISIT PLAN OF CARE VITAL SIGNS MEDICATIONS Unknown Medications RESULTS No Results PROCEDURES No Known procedures INSTRUCTIONS MEDICATIONS ADMINISTERED No Known Medications MEDICAL (GENERAL) HISTORY
--- OUTSIDE RECORDS SUMMARY | 2018-06-06 09:50 | XMS REPORT ---
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 Active 25667335 Problem PVD (peripheral vascular disease) I73.9 Active 189604948 Problem Acquired hypothyroidism E03.9 Active 733317009 ALLERGIES No Information ENCOUNTERS Encounter Location Date Diagnosis [place] [address] [place] [id number] [place] [address] 39019- 8908 Jun, [place] [address] [address]- 9049 Apr, Encounter for immunization Z23 [facility] [address] [place] [address] [id number] [place] [address] 79085- 7018 Apr, Type 2 diabetes mellitus with unspecified complications E11.8 [facility] [address] [address] [id number] [place] [address] 01346- 6621 Apr, [facility] [address] 0[address]- 0889 Mar, [facility] [address] [place] [id number] [place] [address] 18443- 6861 Mar, [facility] [address] [place] [id number] [place] [address] 32581- 5766 Mar, Type 2 diabetes mellitus with unspecified complications E11.8 ; emt intermediate current use of insulin Z79.4 ; PVD (peripheral vascular disease) I73.9 ; Acquired hypothyroidism E03.9 ; Systolic murmur R01.1 ; Gastroesophageal reflux disease without esophagitis K21.9 ; HTN, goal below 130/ 80 I10 and 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
--- OUTSIDE RECORDS SUMMARY | 2018-06-06 09:50 | XMS REPORT ---
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 Active 65118093 Problem PVD (peripheral vascular disease) I73.9 Active 542276672 Problem Acquired hypothyroidism E03.9 Active 416659242 ALLERGIES Substance Reaction Event Type Date Status Penicillin V Potassium rash/swelling Drug Allergy Mar, Active ENCOUNTERS Encounter Location Date Diagnosis [place] [id number] [place] [phone] Jun, [facility] [id number] [place] [phone] Mar, [place] [id number] [place] [phone] Mar, [place] [id number] [place] [phone] Mar, Type 2 diabetes mellitus with unspecified complications E11.8 ; group home current use of insulin Z79.4 ; PVD (peripheral vascular disease) I73.9 ; Acquired hypothyroidism E03.9 ; Systolic murmur R01.1 ; Gastroesophageal reflux disease without esophagitis K21.9 ; HTN, goal below 130/ 80 I10 and 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 Abel here in [place]. , Due for A1C PLAN OF CARE Activity Details Follow Up 3 months or as indicated by lab Reason:DM Pending Test LIPID PANEL Pending Test CMP Pending Test CBC Pending Test TSH VITAL SIGNS Height 64 in 2018-03-22 Weight 148.8 lbs 2018-03-22 Temperature 98.8 degrees Fahrenheit 2018-03-22 Heart Rate 76 bpm 2018-03-22 Respiratory Rate 18 2018-03-22 BMI 25.54 kg/m2 2018-03-22 Blood pressure systolic 140 mmHg 2018-03-22 Blood pressure diastolic 76 mmHg 2018-03-22 MEDICATIONS Medication Instructions Dosage Frequency Start Date End Date Duration Status MetFORMIN HCl ER 500 mg Orally twice a day 1 tablet 12h Active Carafate 1 GM Orally Once a day 1 tablet 24h Active Lipitor 10 MG Orally Once a day 1 tablet 24h Active Protonix 20 MG Orally Once a day 1 tablet 24h Active Glucocard Expression Test - subcutaneously 4 times a day test blood sugar 6h Mar, Active Plavix 75 MG Orally Once a day 1 tablet 24h 30 day(s) Active Pen [place] 32G X 5 MM as directed Active Toprol XL 50 MG Orally Once a day 1 tablet 24h Active Hydrochlorothiazide 25 MG Orally Once a day 1 tablet in the morning 24h Active Levemir FlexTouch 100 UNIT/ML 12 units in the am and 10 units in evening Active Synthroid 100 MCG Orally Once a day 1 tablet on an empty stomach in the morning 24h Active NovoLog 100 UNIT/ML Subcutaneous 3 times a day 5 units 8h Active Gabapentin 300 MG Orally Three times a day 1 capsule 8h Active RESULTS Name Result Date Reference Range A1C (IN HOUSE) 2018-03-22 A1C IN HOUSE 8.5 4.3 - 5.6 % Previous A1c n/a Lot [id number] Exp date 09/19 PROCEDURES Procedure Date Ordered Result Body [facility], 2018 [facility] VISIT NEW PATIENT Mar 22, 2018 GLYCATED HEMOGLOBIN TEST Mar 22, 2018 INSTRUCTIONS MEDICATIONS ADMINISTERED No Known Medications [...] 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
--- OUTSIDE RECORDS SUMMARY | 2018-06-06 09:50 | XMS REPORT ---
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 Active 34950384 Problem PVD (peripheral vascular disease) I73.9 Active 884007050 Problem Acquired hypothyroidism E03.9 Active 764252168 ALLERGIES No Information ENCOUNTERS Encounter Location Date Diagnosis [place] [id number] [place] [phone] Jun, [place] [address] [phone] Apr, Encounter for immunization Z23 [facility] [id number] [place] [phone] Apr, Type 2 diabetes mellitus with unspecified complications E11.8 [facility] [id number] [place] [phone] Apr, [facility] [address] [phone] Mar, [facility] [id number] [place] [phone] Mar, [facility] [id number] [place] [phone] Mar, Type 2 diabetes mellitus with unspecified complications E11.8 ; 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.4 ; PVD (peripheral vascular disease) I73.9 ; Acquired hypothyroidism E03.9 ; Systolic murmur R01.1 ; Gastroesophageal reflux disease without esophagitis K21.9 ; HTN, goal below 130/ 80 I10 and 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
--- NOTE | 2018-06-06 09:52 | Ophthalmologist Pre-Op Note ---
Pre-Operative Progress Note H&P Reviewed The H&P was reviewed, patient examined and no changes noted. Date H&P Reviewed: Jun 06, 2018 Time H&P Reviewed: 09:51 Pre-Op Dx Secondary Cataract, Right Eye FELIX MEDRANO MD Jun 06, 2018 09:52
--- OUTSIDE RECORDS SUMMARY | 2018-06-06 09:53 | XMS REPORT | Continuity of Care Document ---
Author Author [facility] Organization [facility] Address Unknown Phone Unavailable Allergies Active Description Code Type Severity Reaction Onset Reported/Identified Relationship to Patient Clinical Status Yes Penicillins [id number] Drug Allergy Severe RASH 09/03/2007 Yes Sulfa (Sulfonamide Antibiotics) [id number] Drug Allergy Severe RASH 2007 Yes cephalexin [id number] Drug Allergy Mild RASH 09/03/2007 Medications There is no data. Problems Date Dx Coded Attending Type Code [...] 07/06/2015 Ot 786.2 07/06/2015 Ot 793.19 07/06/2015 MADISYN JACOBO MD Ot 272.4 07/06/2015 MADISYN JACOBO MD Ot 414.00 07/06/2015 MADISYN JACOBO MD Ot 433.10 07/06/2015 MADISYN JACOBO MD Ot 786.50 12/10/2015 MADISYN JACOBO MD Ot E78.5 HYPERLIPIDEMIA, UNSPECIFIED 12/10/2015 MADISYN JACOBO MD Ot I25.10 ATHSCL HEART DISEASE OF [place] CORONARY 12/10/2015 MADISYN JACOBO MD Ot I35.0 [...] MD Ot I25.10 ATHSCL HEART DISEASE OF [place] CORONARY 06/02/2016 MADISYN JACOBO MD Ot I35.0 [...] Ot E78.5 HYPERLIPIDEMIA, UNSPECIFIED 06/08/2016 MADISYN JACOBO MD, Ot I25.10 ATHSCL HEART DISEASE OF [place] CORONARY 06/08/2016 MADISYN JACOBO MD Ot I35.0 [...] DIABETES MELLITUS WITHOUT COMPLIC 06/11/2016 MACHELLE JAIN MD, Ot E78.00 PURE HYPERCHOLESTEROLEMIA, UNSPECIFIED 06/11/2016 MACHELLE JAIN MD, Ot E78.5 HYPERLIPIDEMIA, UNSPECIFIED 06/11/2016 MACHELLE JAIN MD Ot E87.6 HYPOKALEMIA 06/11/2016 MACHELLE JAIN MD Ot I10 ESSENTIAL (PRIMARY) HYPERTENSION 06/11/2016 MACHELLE JAIN MD, Ot I25.10 ATHSCL HEART DISEASE OF [place] CORONARY 06/11/2016 MACHELLE JAIN MD, Ot I35.0 NONRHEUMATIC AORTIC (VALVE) STENOSIS 06/11/2016 MACHELLE JAIN MD, Ot I65.23 OCCLUSION AND STENOSIS OF BILATERAL [place] 06/11/2016 MACHELLE JAIN MD, Ot K21.0 GASTRO-ESOPHAGEAL REFLUX DISEASE WITH ES 06/11/2016 MACHELLE JAIN MD, Ot K31.7 POLYP OF STOMACH AND DUODENUM 06/11/2016 MACHELLE JAIN MD, Ot K92.2 GASTROINTESTINAL HEMORRHAGE, UNSPECIFIED 06/11/2016 MACHELLE JAIN MD, Ot Z79.4 HALFWAY (CURRENT) USE OF INSULIN 06/11/2016 MACHELLE JAIN [...] LEDEZMA Ot 305.1 TOBACCO USE DISORDER 07/07/2016 OJNATHAN LEDEZMA Ot 397.0 TRICUSPID VALVE DISEASE 07/07/2016 JONATHAN LDEEZMA Ot 401.9 HYPERTENSION NOS 07/07/2016 JONATHAN LEDEZMA [...] MD Ot I25.10 ATHSCL HEART DISEASE OF [place] CORONARY 07/07/2016 MADISYN JACOBO MD Ot I35.0 NONRHEUMATIC AORTIC (VALVE) STENOSIS 07/07/2016 MADISYN JACOBO MD Ot R07.89 OTHER CHEST PAIN 07/12/2016 DARY DUPONT MD Ot M25.642 STIFFNESS OF LEFT HAND, NOT ELSEWHERE CL 07/12/2016 DARY DUPONT MD Ot S42.301D UNSP FX SHAFT OF HUMER, RIGHT ARM, SUBS 07/12/2016 DARY DUPONT MD Ot M25.642 STIFFNESS OF LEFT HAND, NOT ELSEWHERE CL 07/12/2016 DARY DUPONT MD Ot S42.301D UNSP FX SHAFT OF HUMER, RIGHT ARM, SUBS 08/16/2016 JONATHAN LEDEZMA Ot I25.10 ATHSCL HEART DISEASE OF [place] CORONARY 08/16/2016 JONATHAN LEDEZMA Ot I35.0 NONRHEUMATIC AORTIC (VALVE) STENOSIS 08/16/2016 JONATHAN LEDEZMA Ot I65.23 OCCLUSION AND STENOSIS OF BILATERAL [place] 08/16/2016 JONATHAN LEDEZMA Ot K21.9 GASTRO-ESOPHAGEAL REFLUX DISEASE WITHOUT 10/04/2016 MICHELE SERVIN SHOBHA Ot E03.9 HYPOTHYROIDISM, UNSPECIFIED 10/04/2016 MICHELE SERVIN SHOBHA Ot E11.65 TYPE 2 DIABETES MELLITUS WITH HYPERGLYCE 10/04/2016 PAMELA BAUTISTA DOI Ot E78.5 HYPERLIPIDEMIA, UNSPECIFIED 10/04/2016 MICHELE DO SHOBHA Ot E86.0 DEHYDRATION 10/04/2016 MICHELE DO SHOBHA Ot E87.6 HYPOKALEMIA 10/04/2016 MICHELE SERVIN SHOBHA Ot G47.33 OBSTRUCTIVE SLEEP APNEA (ADULT) (PEDIATR 10/04/2016 MICHELE DO SHOBHA Ot I10 ESSENTIAL (PRIMARY) HYPERTENSION 10/04/2016 PAMELA BAUTISTA DOI Ot I25.10 ATHSCL HEART DISEASE OF [place] CORONARY 10/04/2016 SHOBHA BAUTISTA DO Ot I35.0 NONRHEUMATIC AORTIC (VALVE) STENOSIS 10/04/2016 PAMELA BAUTISTA DOI Ot K21.9 GASTRO-ESOPHAGEAL REFLUX DISEASE WITHOUT 10/04/2016 PAMELA BAUTISTA DOI Ot R00.0 TACHYCARDIA, UNSPECIFIED 10/04/2016 PAMELA BAUTISTA DOI Ot Z79.4 COMPLIANCE [employer] (CURRENT) USE OF INSULIN 10/04/2016 PAMELA BAUTISTA DOI Ot Z87.891 PERSONAL HISTORY OF NICOTINE DEPENDENCE 10/04/2016 SHOBHA BAUTISTA DO Ot Z95.5 PRESENCE OF CORONARY ANGIOPLASTY IMPLANT 10/04/2016 MICHELE SERVIN SHOBHA Ot E03.9 HYPOTHYROIDISM, UNSPECIFIED 10/04/2016 MICHELE SERVIN SHOBHA Ot E11.65 TYPE 2 DIABETES MELLITUS WITH HYPERGLYCE 10/04/2016 MICHELE SERVIN SHOBHA Ot E78.5 HYPERLIPIDEMIA, UNSPECIFIED 10/04/2016 MICHELE SERVIN SHOBHA Ot E86.0 DEHYDRATION 10/04/2016 MICHELE SERVIN SHOBHA Ot E87.6 HYPOKALEMIA 10/04/2016 MICHELE SERVIN SHOBHA Ot G47.33 OBSTRUCTIVE SLEEP APNEA (ADULT) (PEDIATR 10/04/2016 MICHELE SERVIN SHOBHA Ot I10 ESSENTIAL (PRIMARY) HYPERTENSION 10/04/2016 SHOBHA BAUTISTA DO Ot I25.10 ATHSCL HEART DISEASE OF [place] CORONARY 10/04/2016 SHOBHA BAUTISTA DO Ot I35.0 NONRHEUMATIC AORTIC (VALVE) STENOSIS 10/04/2016 SHOBHA BAUTISTA DO Ot K21.9 GASTRO-ESOPHAGEAL REFLUX DISEASE WITHOUT 10/04/2016 SHOBHA BAUTISTA DO Ot R00.0 TACHYCARDIA, UNSPECIFIED 10/04/2016 SHOBHA BAUTISTA DO Ot Z79.4 COM[employer] (CURRENT) USE OF INSULIN 10/04/2016 SHOBHA BAUTISTA [...] LEDEZMA Ot 397.0 TRICUSPID VALVE DISEASE 10/26/2016 JONATAN LEDEZMACHRIS Amin Ot 401.9 HYPERTENSION NOS 10/26/2016 JG COPE JONATHAN K Ot 414.00 CORON ATHEROSCLER NOS TYPE VESSEL, NATIV 10/26/2016 JG COPE JONATHAN K Ot 424.0 MITRAL VALVE DISORDER 10/26/2016 JG COPE JONATHAN K Ot 786.50 CHEST PAIN NOS 10/26/2016 JG COPE JONATHAN K Ot V17.49 FAMILY HISTORY OF OTHER CARDIOVASCULAR D 10/26/2016 JG COPE JONATHAN K Ot 305.1 TOBACCO USE DISORDER 10/26/2016 JG COPE JONATHAN K Ot 401.9 HYPERTENSION NOS 10/26/2016 JG COPE JONATHAN K Ot 414.00 CORON ATHEROSCLER NOS TYPE VESSEL, NATIV 10/26/2016 JG COPE JONATHAN K Ot 786.50 CHEST PAIN NOS 10/26/2016 JG COPE JONATHAN K Ot 244.9 HYPOTHYROIDISM NOS 10/26/2016 JG COPE [...] MD Ot I25.10 ATHSCL HEART DISEASE OF [place] CORONARY 10/26/2016 MADISYN JACOBO MD Ot I35.0 NONRHEUMATIC AORTIC (VALVE) STENOSIS 10/26/2016 MADISYN JACOBO MD J Ot R07.89 OTHER CHEST PAIN 10/26/2016 JONATHAN LEDEZMA Ot I25.10 ATHSCL HEART DISEASE OF [place] CORONARY 10/26/2016 JONATHAN LEDEZMA Ot I35.0 NONRHEUMATIC AORTIC (VALVE) STENOSIS 10/26/2016 JONATHAN LEDEZMA Ot I65.23 OCCLUSION AND STENOSIS OF [place] 10/26/2016 JONATHAN LEDEZMA Ot K21.9 GASTRO-ESOPHAGEAL REFLUX DISEASE WITHOUT 10/26/2016 ABIMBOLA COURTNEY MD Ot H53.9 UNSPECIFIED VISUAL DISTURBANCE 10/26/2016 ABIMBOLA COURTNEY MD Ot R41.0 DISORIENTATION, UNSPECIFIED 10/26/2016 DARY DUPONT MD Ot M25.642 STIFFNESS OF LEFT HAND, NOT ELSEWHERE CL 10/26/2016 DARY DUPONT MD Ot S42.301D UNSP FX SHAFT OF HUMER, RIGHT ARM, SUBS 11/01/2016 DARY DUPONT MD Ot M25.642 STIFFNESS OF LEFT HAND, NOT ELSEWHERE CL 11/01/2016 DARY DUPONT MD Ot S42.301D UNSP FX SHAFT OF HUMER, RIGHT ARM, SUBS 11/07/2016 JONATHAN LEDEZMA Ot I25.10 ATHSCL HEART DISEASE OF [place] CORONARY 11/07/2016 JONATHAN LEDEZMA Ot I35.0 NONRHEUMATIC AORTIC (VALVE) STENOSIS 11/07/2016 JONATHAN LEDEZMA Ot I65.23 OCCLUSION AND STENOSIS OF [place] 11/07/2016 JONATHAN LEDEZMA Ot K21.9 GASTRO-ESOPHAGEAL REFLUX DISEASE WITHOUT 11/22/2016 DARY DUPONT MD Ot M25.642 STIFFNESS OF LEFT HAND, NOT ELSEWHERE CL 11/22/2016 DARY DUPONT MD Ot S42.301D UNSP FX SHAFT OF HUMER, RIGHT ARM, SUBS 11/23/2016 JONATHAN LEDEZMA Ot I25.10 ATHSCL HEART DISEASE OF [place] CORONARY 11/23/2016 JONATHAN LEDEZMA Ot I35.0 NONRHEUMATIC AORTIC (VALVE) STENOSIS 11/23/2016 JONATHAN LEDEZMA Ot I65.23 OCCLUSION AND STENOSIS OF [place] 11/23/2016 JONATHAN LEDEZMA Ot K21.9 GASTRO-ESOPHAGEAL REFLUX DISEASE WITHOUT 11/23/2016 ROZ SAUCEDA, ABIMBOLA Santacruz Ot H53.9 UNSPECIFIED VISUAL DISTURBANCE 11/23/2016 ROZ SAUCEDA, ABIMBOLA Santacruz Ot R41.0 DISORIENTATION, UNSPECIFIED 12/06/2016 DARY DUPONT MD Ot M25.642 STIFFNESS OF LEFT HAND, NOT ELSEWHERE CL 12/06/2016 DARY DUPONT MD Ot S42.301D UNSP FX SHAFT OF HUMER, RIGHT ARM, SUBS 12/15/2016 DARY DUPONT MD Ot M25.642 STIFFNESS OF LEFT HAND, NOT ELSEWHERE CL 12/15/2016 DARY DUPONT MD Ot S42.301D UNSP FX SHAFT OF HUMER, RIGHT ARM, SUBS 12/20/2016 DARY DUPONT MD Ot M25.642 STIFFNESS OF LEFT HAND, NOT ELSEWHERE CL 12/20/2016 DARY DUPONT MD Ot S42.301D UNSP FX SHAFT OF HUMER, RIGHT ARM, SUBS 12/20/2016 DARY DUPONT MD Ot M25.642 STIFFNESS OF LEFT HAND, NOT ELSEWHERE CL 12/20/2016 DARY DUPONT MD Ot S42.301D UNSP FX SHAFT OF HUMER, RIGHT ARM, SUBS 12/20/2016 Ot V76.12 OTH SCREEN MAMMO-MALIGN NEOPLASM OF [place] 12/20/2016 JONATHAN LEDEZMA Ot 305.1 TOBACCO USE DISORDER 12/20/2016 JONATHAN LEDEZMA Ot 397.0 TRICUSPID VALVE DISEASE 12/20/2016 JONATHAN LEDEZMA Ot 401.9 HYPERTENSION NOS 12/20/2016 JONATHAN LEDEZMA Ot 414.00 CORON ATHEROSCLER NOS TYPE VESSEL, NATIV 12/20/2016 JONATHAN LEDEZMA Ot 424.0 MITRAL VALVE DISORDER 12/20/2016 JONATHAN LEDEZMA Ot 786.50 CHEST PAIN NOS 12/20/2016 JONATHAN LEDEZMA Ot V17.49 FAMILY HISTORY OF OTHER CARDIOVASCULAR D 12/20/2016 JONATHAN LEDEZMA Ot 305.1 TOBACCO USE DISORDER 12/20/2016 JONATHAN LEDEZMA Ot 401.9 HYPERTENSION NOS 12/20/2016 JONATHAN LEDEZMA Ot 414.00 CORON ATHEROSCLER NOS TYPE VESSEL, NATIV 12/20/2016 JONATHAN LEDEZMA Ot 786.50 CHEST PAIN NOS 12/20/2016 JONATHAN LEDEZMA Ot 244.9 HYPOTHYROIDISM NOS 12/20/2016 JONATHAN LEDEZMA Ot 250.00 DIAB RAMON WO COMPL, TYPE II OR UNSPEC TY 12/20/2016 JONATHAN LEDEZMA Ot 427.69 PREMATURE BEATS NEC 12/20/2016 JONATHAN LEDEZMA Ot 786.50 CHEST PAIN NOS 12/20/2016 Ot 786.05 SHORTNESS OF BREATH 12/20/2016 Ot 786.2 COUGH 12/20/2016 Ot 793.19 OTHER NONSPECIFIC ABNORMAL FINDING OF [place] 12/20/2016 MADISYN JACOBO MD Ot 272.4 HYPERLIPIDEMIA NEC/NOS 12/20/2016 MADISYN JACOBO MD Ot 414.00 CORON ATHEROSCLER NOS TYPE VESSEL, NATIV 12/20/2016 MADISYN JACOBO MD Ot 433.10 CAROTID ARTERY OCCLUSION W O CEREBRAL IN 12/20/2016 MADISYN JACOBO MD Ot 786.50 CHEST PAIN NOS 12/20/2016 MADISYN JACOBO MD Ot E78.5 HYPERLIPIDEMIA, UNSPECIFIED 12/20/2016 MADISYN JACOBO MD Ot I25.10 ATHSCL HEART DISEASE OF [place] CORONARY 12/20/2016 MADISYN JACOBO MD Ot I35.0 NONRHEUMATIC AORTIC (VALVE) STENOSIS 12/20/2016 MADISYN JACOBO MD Ot R07.89 OTHER CHEST PAIN 12/20/2016 JONATHAN LEDEZMA Ot I25.10 ATHSCL HEART DISEASE OF [place] CORONARY 12/20/2016 JONATHAN LEDEZMA Ot I35.0 NONRHEUMATIC AORTIC (VALVE) STENOSIS 12/20/2016 JONATHAN LEDEZMA Ot I65.23 OCCLUSION AND STENOSIS OF [place] 12/20/2016 JONATHAN LEDEZMA Ot K21.9 GASTRO-ESOPHAGEAL REFLUX DISEASE WITHOUT 12/20/2016 ROZ SAUCEDA, ABIMBOLA Santacruz Ot H53.9 UNSPECIFIED VISUAL DISTURBANCE 12/20/2016 ROZ SAUCEDA, ABIMBOLA R Ot R41.0 DISORIENTATION, UNSPECIFIED 12/20/2016 DARY DUPONT MD Ot M25.642 STIFFNESS OF LEFT HAND, NOT ELSEWHERE CL 12/20/2016 DARY DUPONT MD Ot S42.301D UNSP FX SHAFT OF HUMER, RIGHT ARM, SUBS 12/20/2016 DARY DUPONT MD Ot M25.642 STIFFNESS OF LEFT HAND, NOT ELSEWHERE CL 12/20/2016 DARY DUPONT MD Ot S42.301D UNSP FX SHAFT OF HUMER, RIGHT ARM, SUBS 01/13/2017 DARY DUPONT MD Ot M25.642 STIFFNESS OF LEFT HAND, NOT ELSEWHERE CL 01/13/2017 DARY DUPONT MD Ot S42.301D UNSP FX SHAFT OF HUMER, RIGHT ARM, SUBS 01/13/2017 DARY DUPONT MD Ot M25.642 STIFFNESS OF LEFT HAND, NOT ELSEWHERE CL 01/13/2017 DARY DUPONT MD Ot S42.301D UNSP FX SHAFT OF HUMER, RIGHT ARM, SUBS 01/13/2017 DARY DUPONT MD Ot M25.642 STIFFNESS OF LEFT HAND, NOT ELSEWHERE CL 01/13/2017 DARY DUPONT MD Ot S42.301D UNSP FX SHAFT OF HUMER, RIGHT ARM, SUBS 01/13/2017 DARY DUPONT MD Ot M25.642 STIFFNESS OF LEFT HAND, NOT ELSEWHERE CL 01/13/2017 DARY DUPONT MD Ot S42.301D UNSP FX SHAFT OF HUMER, RIGHT ARM, SUBS 01/30/2017 DARY DUPONT MD Ot M25.642 STIFFNESS OF LEFT HAND, NOT ELSEWHERE CL 01/30/2017 DARY DUPONT MD Ot S42.301D UNSP FX SHAFT OF HUMER, RIGHT ARM, SUBS 01/31/2017 DARY DUPONT MD Ot M25.642 STIFFNESS OF LEFT HAND, NOT ELSEWHERE CL 01/31/2017 DARY DUPONT MD Ot S42.301D UNSP FX SHAFT OF HUMER, RIGHT ARM, SUBS 05/22/2017 MANE SAUCEDA, DILLON Church Ot E11.9 TYPE 2 DIABETES MELLITUS WITHOUT COMPLIC 05/22/2017 DILLON GILLIAM MD Ot E83.42 HYPOMAGNESEMIA 05/22/2017 DILLON GILLIAM MD Ot E87.6 HYPOKALEMIA 05/22/2017 DILLON GILLIAM MD Ot I10 ESSENTIAL (PRIMARY) HYPERTENSION 05/22/2017 DILLON GILLIAM MD Ot I25.10 ATHSCL HEART DISEASE OF [place] CORONARY 05/22/2017 DILLON GILLIAM MD Ot K21.9 GASTRO-ESOPHAGEAL REFLUX DISEASE WITHOUT 05/22/2017 DILLON GILLIAM MD Ot K52.9 NONINFECTIVE GASTROENTERITIS AND COLITIS 05/22/2017 DILLON GILLIAM MD Ot R11.2 NAUSEA WITH VOMITING, UNSPECIFIED 05/22/2017 DILLON GILLIAM MD Ot Z79.4 COMPLIANCE [employer] (CURRENT) USE OF INSULIN 05/22/2017 DILLON GILLIAM MD Ot Z87.891 PERSONAL HISTORY OF NICOTINE DEPENDENCE 05/22/2017 DILLON GILLIAM MD Ot Z90.49 ACQUIRED ABSENCE OF OTHER SPECIFIED PART 05/22/2017 DILLON GILLIAM MD Ot Z95.5 PRESENCE OF CORONARY ANGIOPLASTY IMPLANT 05/30/2017 DILLON GILLIAM MD Ot E11.9 TYPE 2 DIABETES MELLITUS WITHOUT COMPLIC 05/30/2017 DILLON GILLIAM MD Ot E83.42 HYPOMAGNESEMIA 05/30/2017 DILLON GILLIAM MD Ot E87.6 HYPOKALEMIA 05/30/2017 DILLON GILLIAM MD Ot I10 ESSENTIAL (PRIMARY) HYPERTENSION 05/30/2017 DILLON GILLIAM MD Ot I25.10 ATHSCL HEART DISEASE OF [place] CORONARY 05/30/2017 DILLON GILLIAM MD Ot K21.9 GASTRO-ESOPHAGEAL REFLUX DISEASE WITHOUT 05/30/2017 DILLON GILLIAM MD Ot K52.9 NONINFECTIVE GASTROENTERITIS AND COLITIS 05/30/2017 DILLON GILLIAM MD Ot R11.2 NAUSEA WITH VOMITING, UNSPECIFIED 05/30/2017 DILLON GILLIAM MD Ot Z79.4 COMPL[employer]ANCE [employer] (CURRENT) USE OF INSULIN 05/30/2017 DILLON GILLIAM MD Ot Z87.891 PERSONAL HISTORY OF NICOTINE DEPENDENCE 05/30/2017 DILLON GILLIAM MD Ot Z90.49 ACQUIRED ABSENCE OF OTHER SPECIFIED PART 05/30/2017 MANE SAUCEDA, DILLON Church Ot Z95.5 PRESENCE OF CORONARY ANGIOPLASTY IMPLANT 07/20/2017 MADISYN JACOBO MD Ot E78.2 MIXED HYPERLIPIDEMIA 07/20/2017 MADISYN JACOBO MD Ot I25.10 ATHSCL HEART DISEASE OF [place] CORONARY 07/20/2017 MADISYN JACOBO MD Ot I35.0 NONRHEUMATIC AORTIC (VALVE) STENOSIS 07/20/2017 MADISYN JACOBO MD Ot I49.3 VENTRICULAR PREMATURE DEPOLARIZATION 07/20/2017 MADISYN JACOBO MD Ot I65.23 OCCLUSION AND STENOSIS OF [place]AL [place] 07/20/2017 MADISYN JACOBO MD Ot K21.9 GASTRO-ESOPHAGEAL REFLUX DISEASE WITHOUT 07/20/2017 MADISYN JACOBO MD Ot R07.9 CHEST PAIN, UNSPECIFIED 08/04/2017 MADISYN JACOBO MD Ot E78.2 MIXED HYPERLIPIDEMIA 08/04/2017 MADISYN JACOBO MD Ot I25.10 ATHSCL HEART DISEASE OF [place] CORONARY 08/04/2017 MADISYN JACOBO MD Ot I35.0 NONRHEUMATIC AORTIC (VALVE) STENOSIS 08/04/2017 MADISYN JACOBO MD Ot I49.3 VENTRICULAR PREMATURE DEPOLARIZATION 08/04/2017 MADISYN JACOBO MD Ot I65.23 OCCLUSION AND STENOSIS OF [place] 08/04/2017 MADISYN JACOBO MD, Ot K21.9 GASTRO-ESOPHAGEAL REFLUX DISEASE WITHOUT 08/04/2017 MADISYN JACOBO MD Ot R07.9 CHEST PAIN, UNSPECIFIED 10/15/2017 DARY DUPONT MD Ot M25.642 STIFFNESS OF LEFT HAND, NOT ELSEWHERE CL 10/15/2017 DARY DUPONT MD Ot S42.301D UNSP FX SHAFT OF HUMER, RIGHT ARM, SUBS 01/02/2018 Ot V76.12 OT SCREEN MAMMO-MALIGN NEOPLASM OF [place] 01/02/2018 JONATHAN LEDEZMA Ot 305.1 TOBACCO USE DISORDER 01/02/2018 JONATHAN LEDEZMA Ot 397.0 TRICUSPID VALVE DISEASE 01/02/2018 JONATHAN LEDEZMA Ot 401.9 HYPERTENSION NOS 01/02/2018 JONATHAN LEDEZMA Ot 414.00 CORON ATHEROSCLER NOS TYPE VESSEL, NATIV 01/02/2018 JG COPE JONATHAN K Ot 424.0 MITRAL VALVE DISORDER 01/02/2018 JG COPE JONATHAN K Ot 786.50 CHEST PAIN NOS 01/02/2018 JG COPE JONATHAN K Ot V17.49 FAMILY HISTORY OF OTHER CARDIOVASCULAR D 01/02/2018 JG COPE JONATHAN K Ot 305.1 TOBACCO USE DISORDER 01/02/2018 JG COPE JONATHAN K Ot 401.9 HYPERTENSION NOS 01/02/2018 JG COPE JONATHAN K Ot 414.00 CORON ATHEROSCLER NOS TYPE VESSEL, NATIV 01/02/2018 JG COPE JONATHAN K Ot 786.50 CHEST PAIN NOS 01/02/2018 JG COPE JONATHAN K Ot 244.9 HYPOTHYROIDISM NOS 01/02/2018 JG COPE JONATHAN K Ot 250.00 DIAB RAMON WO COMPL, TYPE II OR UNSPEC TY 01/02/2018 JG COPE JONATHAN K Ot 427.69 PREMATURE BEATS NEC 01/02/2018 JG COPE JONATHAN K Ot 786.50 CHEST PAIN NOS 01/02/2018 Ot 786.05 SHORTNESS OF BREATH 01/02/2018 Ot 786.2 COUGH 01/02/2018 Ot 793.19 OTHER NONSPECIFIC ABNORMAL FINDING OF JOSI[place] 01/02/2018 MADISYN JACOBO MD Ot 272.4 HYPERLIPIDEMIA NEC/NOS 01/02/2018 MADISYN JACOBO MD Ot 414.00 CORON ATHEROSCLER NOS TYPE VESSEL, NATIV 01/02/2018 MADISYN JACOBO MD Ot 433.10 CAROTID ARTERY OCCLUSION W O CEREBRAL IN 01/02/2018 MADISYN JACOBO MD Ot 786.50 CHEST PAIN NOS 01/02/2018 MADISYN JACOBO MD Ot E78.5 HYPERLIPIDEMIA, UNSPECIFIED 01/02/2018 MADISYN JACOBO MD Ot I25.10 ATHSCL HEART DISEASE OF [place] CORONARY 01/02/2018 MADISYN JACOBO MD Ot I35.0 NONRHEUMATIC AORTIC (VALVE) STENOSIS 01/02/2018 MADISYN JACOBO MD Ot R07.89 OTHER CHEST PAIN 01/02/2018 JONATHAN LEDEZMA Ot I25.10 ATHSCL HEART DISEASE OF [place] CORONARY 01/02/2018 JONATHAN LEDEZMA Ot I35.0 NONRHEUMATIC AORTIC (VALVE) STENOSIS 01/02/2018 JONATHAN LEDEMZA Ot I65.23 OCCLUSION AND STENOSIS OF [place]ILATERAL [place] 01/02/2018 JONATHAN LEDEZMA Ot K21.9 GASTRO-ESOPHAGEAL REFLUX DISEASE WITHOUT 01/02/2018 ABIMBOLA COURTNEY MD Ot H53.9 UNSPECIFIED VISUAL DISTURBANCE 01/02/2018 ABIMBOLA COURTNEY MD Ot R41.0 DISORIENTATION, UNSPECIFIED 01/02/2018 DARY DUPONT MD Ot M25.642 STIFFNESS OF LEFT HAND, NOT ELSEWHERE CL 01/02/2018 DARY DUPONT MD Ot S42.301D UNSP FX SHAFT OF HUMER, RIGHT ARM, SUBS 01/02/2018 MADISYN JACOBO MD Ot E78.2 MIXED HYPERLIPIDEMIA 01/02/2018 MADISYN JACOBO MD Ot I25.10 ATHSCL HEART DISEASE OF [place] CORONARY 01/02/2018 MADISYN JACOBO MD Ot I35.0 NONRHEUMATIC AORTIC (VALVE) STENOSIS 01/02/2018 MADISYN JACOBO MD Ot I49.3 VENTRICULAR PREMATURE DEPOLARIZATION 01/02/2018 MADISYN JACOBO MD Ot I65.23 OCCLUSION AND STENOSIS OF BILATERAL [place] 01/02/2018 MADISYN JACOBO MD Ot K21.9 GASTRO-ESOPHAGEAL REFLUX DISEASE WITHOUT 01/02/2018 MADISYN JACOBO MD Ot R07.9 CHEST PAIN, UNSPECIFIED 01/16/2018 MASHA COBB MD Ot N39.0 URINARY TRACT INFECTION, SITE NOT SPECIF 01/23/2018 MASHA COBB MD, Ot I70.213 ATHSCL [place] ARTERIES OF EXTRM W INTRMT 01/23/2018 MASHA COBB MD Ot R82.99 OTHER ABNORMAL FINDINGS IN URINE 01/23/2018 MASHA COBB MD Ot Z01.810 ENCOUNTER FOR PREPROCEDURAL CARDIOVASCUL 01/23/2018 MASHA COBB MD, Ot Z01.811 ENCOUNTER FOR PREPROCEDURAL RESPIRATORY 01/23/2018 MASHA COBB MD, Ot Z01.812 ENCOUNTER FOR PREPROCEDURAL LABORATORY E 01/30/2018 JORDYN SAUCEDA, MASHA Stallworth N39.0 URINARY TRACT INFECTION, SITE NOT SPECIF 05/01/2018 KIAH SAUCEDA, DARY Bradley Ot M25.642 STIFFNESS OF LEFT HAND, NOT ELSEWHERE CL 05/01/2018 KIAH SAUCEDA, DARY Bradley Ot S42.301D UNSP FX SHAFT OF HUMER, RIGHT ARM, SUBS Procedures Code Description Performed By Performed On [id number] EXCISION OF STOMACH, ENDO , DIAGN 06/09/2016 [id number] CONTROL BLEEDING IN GASTROINTESTINAL TRA 06/09/2016 Results Test Result Range Complete blood count (CBC) with automated white blood cell (WBC) differential - 06/08/16 17:05 Blood leukocytes automated count (number/volume) 13.2 10*3/uL 4.3-11.0 Blood erythrocytes automated count (number/volume) 3.80 10*6/uL 4.35-5.85 Venous blood hemoglobin measurement (mass/volume) 11.5 [...] Automated blood platelet mean volume measurement 8.9 [foz_us] 7.4-10.4 Automated blood neutrophils/100 leukocytes 51 % [...] Serum or plasma sodium measurement (moles/volume) 136 mmol/L 135-145 Serum or plasma potassium measurement (moles/volume) 3.1 mmol/L 3.6-5.0 Serum or plasma chloride measurement (moles/volume) 95 mmol/L 98-107 Carbon dioxide 25 mmol/L 21-32 Serum or plasma anion gap determination (moles/volume) 16 mmol/L 5-14 Serum or plasma urea nitrogen measurement (mass/volume) 38 mg/dL 7-18 Serum or plasma creatinine measurement (mass/volume) 1.01 mg/dL 0.60-1.30 Serum or plasma urea nitrogen/creatinine mass [...] 17:05 RED CELLS LEUKO REDUCED AS1 TRANSFUSED 06/09/16 0130 NRG Blood type T Indirect antibody screen panel - 06/08/16 17:05 ABO+Rh group OP NRG Transfusion band number [id number] NRG Blood group antibody screen NEGATIVE NRG [...] 23:00 Blood leukocytes automated count (number/volume) 8.8 10*3/uL 4.3-11.0 Blood erythrocytes automated count (number/volume) 2.44 10*6/uL 4.35-5.85 Venous blood hemoglobin measurement (mass/volume) 7.4 [...] Automated blood platelet mean volume measurement 8.2 [foz_us] 7.4-10.4 Automated blood neutrophils/100 leukocytes 54 % [...] Serum or plasma sodium measurement (moles/volume) 139 mmol/L 135-145 Serum or plasma potassium measurement (moles/volume) 3.3 mmol/L 3.6-5.0 Serum or plasma chloride measurement (moles/volume) 105 mmol/L 98-107 Carbon dioxide 26 mmol/L 21-32 Serum or plasma anion gap determination (moles/volume) 8 mmol/L 5-14 Serum or plasma urea nitrogen measurement (mass/volume) 41 mg/dL 7-18 Serum or plasma creatinine measurement (mass/volume) 0.68 mg/dL 0.60-1.30 Serum or plasma urea nitrogen/creatinine mass [...] Urine pH measurement by test strip 6 5-9 Specific gravity of urine by test strip 1.015 1.016- 1.022 Urine protein assay by test strip, semi-quantitative [...] 04:35 Blood leukocytes automated count (number/volume) 7.9 10*3/uL 4.3-11.0 Blood erythrocytes automated count (number/volume) 2.90 10*6/uL 4.35-5.85 Venous blood hemoglobin measurement (mass/volume) 8.6 [...] Automated blood platelet mean volume measurement 9.5 [foz_us] 7.4-10.4 Automated blood neutrophils/100 leukocytes 62 % [...] Serum or plasma sodium measurement (moles/volume) 140 mmol/L 135-145 Serum or plasma potassium measurement (moles/volume) 3.9 mmol/L 3.6-5.0 Serum or plasma chloride measurement (moles/volume) 110 mmol/L 98-107 Carbon dioxide 22 mmol/L 21-32 Serum or plasma anion gap determination (moles/volume) 8 mmol/L 5-14 Serum or plasma urea nitrogen measurement (mass/volume) 37 mg/dL 7-18 Serum or plasma creatinine measurement (mass/volume) 0.59 mg/dL 0.60-1.30 Serum or plasma urea nitrogen/creatinine mass [...] Serum or plasma phosphate measurement (mass/volume) 2.4 mg/dL 2.3-4.7 Magnesium - 06/09/16 04:35 Magnesium 1.2 [...] 03:40 Blood leukocytes automated count (number/volume) 10.8 10*3/uL 4.3-11.0 Blood erythrocytes automated count (number/volume) 2.78 10*6/uL 4.35-5.85 Venous blood hemoglobin measurement (mass/volume) 8.1 [...] Automated blood platelet mean volume measurement 9.6 [foz_us] 7.4-10.4 Automated blood neutrophils/100 leukocytes 60 % [...] Serum or plasma sodium measurement (moles/volume) 140 mmol/L 135-145 Serum or plasma potassium measurement (moles/volume) 3.2 mmol/L 3.6-5.0 Serum or plasma chloride measurement (moles/volume) 111 mmol/L 98-107 Carbon dioxide 22 mmol/L 21-32 Serum or plasma anion gap determination (moles/volume) 7 mmol/L 5-14 Serum or plasma urea nitrogen measurement (mass/volume) 17 mg/dL 7-18 Serum or plasma creatinine measurement (mass/volume) 0.50 mg/dL 0.60-1.30 Serum or plasma urea nitrogen/creatinine mass ratio 34 NRG Serum or plasma creatinine measurement with calculation of estimated glomerular filtration rate > NRG Serum or plasma glucose measurement (mass/volume) 77 mg/dL 70-105 Serum or plasma calcium measurement (mass/volume) 7.1 mg/dL 8.5-10.1 Serum or plasma phosphate measurement (mass/volume) - 06/10/16 03:40 Serum or plasma phosphate measurement (mass/volume) 1.8 mg/dL 2.3-4.7 Magnesium - 06/10/16 03:40 Magnesium 1.4 [...] 04:48 Blood leukocytes automated count (number/volume) 8.5 10*3/uL 4.3-11.0 Blood erythrocytes automated count (number/volume) 2.50 10*6/uL 4.35-5.85 Venous blood hemoglobin measurement (mass/volume) 7.3 [...] Automated blood platelet mean volume measurement 9.2 [foz_us] 7.4-10.4 Automated blood neutrophils/100 leukocytes 61 % [...] Serum or plasma sodium measurement (moles/volume) 141 mmol/L 135-145 Serum or plasma potassium measurement (moles/volume) 3.3 mmol/L 3.6-5.0 Serum or plasma chloride measurement (moles/volume) 112 mmol/L 98-107 Carbon dioxide 23 mmol/L 21-32 Serum or plasma anion gap determination (moles/volume) 6 mmol/L 5-14 Serum or plasma urea nitrogen measurement (mass/volume) 9 mg/dL 7-18 Serum or plasma creatinine measurement (mass/volume) 0.50 mg/dL 0.60-1.30 Serum or plasma urea nitrogen/creatinine mass ratio 18 NRG Serum or plasma creatinine measurement with calculation of estimated glomerular filtration rate > NRG Serum or plasma glucose measurement (mass/volume) 68 mg/dL 70-105 Serum or plasma calcium measurement (mass/volume) 7.6 mg/dL 8.5-10.1 Serum or plasma phosphate measurement (mass/volume) - 06/11/16 04:48 Serum or plasma phosphate measurement (mass/volume) 2.0 mg/dL 2.3-4.7 Magnesium - 06/11/16 04:48 Magnesium 1.5 mg/dL 1.8-2.4 Whole blood hemoglobin and hematocrit panel - 06/11/16 07:50 Venous blood hemoglobin measurement (mass/volume) 8.2 g/dL 11.5-16.0 Blood hematocrit (volume fraction) 26 % 35-52 Complete blood count (CBC) with automated white blood cell (WBC) differential - 10/03/16 06:15 Blood leukocytes automated count (number/volume) 9.5 10*3/uL 4.3-11.0 Blood erythrocytes automated count (number/volume) 4.75 10*6/uL 4.35-5.85 Venous blood hemoglobin measurement (mass/volume) 12.2 [...] Automated blood platelet mean volume measurement 9.5 [foz_us] 7.4-10.4 Automated blood neutrophils/100 leukocytes 68 % [...] Serum or plasma sodium measurement (moles/volume) 136 mmol/L 135-145 Serum or plasma potassium measurement (moles/volume) 3.2 mmol/L 3.6-5.0 Serum or plasma chloride measurement (moles/volume) 97 mmol/L 98-107 Carbon dioxide 21 mmol/L 21-32 Serum or plasma anion gap determination (moles/volume) 18 mmol/L 5-14 Serum or plasma urea nitrogen measurement (mass/volume) 18 mg/dL 7-18 Serum or plasma creatinine measurement (mass/volume) 0.99 mg/dL 0.60-1.30 Serum or plasma urea nitrogen/creatinine mass [...] or plasma troponin i.cardiac measurement (mass/volume) < ng/ mL <0.30 Lipase - 10/03/16 06:15 Lipase < [...] blood base excess by calculation 1.8 mmol/L -2.5 -2.5 Arterial blood oxygen saturation measurement 94 % [...] Urine pH measurement by test strip 6 5-9 Specific gravity of urine by test strip 1.020 1.016- 1.022 Urine protein assay by test strip, semi-quantitative [...] culture - 10/03/16 09:14 Bacterial urine culture [id number] NRG COLONY COUNT >100,000/ML NRG FTX;REPORTABLE SENSITIVITY REPORTED 10/04 15:55 NRG FREE TEXT ENTRY 2 PLUS, MIXED GRAM POSITIVES <10,000/ML NRG Bacterial susceptibility panel - 10/03/16 09:14 Gentamicin susceptibility test by minimum inhibitory concentration < = NRG Trimethoprim/sulfamethoxazole susceptibility test by minimum inhibitoryconcentration <= NRG Ampicillin susceptibility test by minimum inhibitory concentration < = NRG Tobramycin susceptibility test by minimum inhibitory concentration < = NRG Cefazolin susceptibility test by minimum inhibitory concentration < = NRG Ceftriaxone susceptibility test by minimum inhibitory concentration <= NRG Ampicillin/sulbactam susceptibility test by minimum inhibitory concentration <= NRG Piperacillin/tazobactam susceptibility test by minimum inhibitory concentration <= NRG Ciprofloxacin susceptibility test by minimum inhibitory concentration <= NRG Meropenem susceptibility test by minimum inhibitory concentration < = NRG Nitrofurantoin susceptibility test by minimum inhibitory concentration <= NRG Aztreonam susceptibility test by minimum inhibitory concentration < = NRG Extended spectrum beta lactamase (ESBL) producing [...] 03:37 Blood leukocytes automated count (number/volume) 7.6 10*3/uL 4.3-11.0 Blood erythrocytes automated count (number/volume) 3.97 10*6/uL 4.35-5.85 Venous blood hemoglobin measurement (mass/volume) 10.1 [...] Automated blood platelet mean volume measurement 9.5 [foz_us] 7.4-10.4 Automated blood neutrophils/100 leukocytes 57 % [...] Serum or plasma sodium measurement (moles/volume) 139 mmol/L 135-145 Serum or plasma potassium measurement (moles/volume) 2.8 mmol/L 3.6-5.0 Serum or plasma chloride measurement (moles/volume) 105 mmol/L 98-107 Carbon dioxide 24 mmol/L 21-32 Serum or plasma anion gap determination (moles/volume) 10 mmol/L 5-14 Serum or plasma urea nitrogen measurement (mass/volume) 8 mg/dL 7-18 Serum or plasma creatinine measurement (mass/volume) 0.62 mg/dL 0.60-1.30 Serum or plasma urea nitrogen/creatinine mass [...] measurement by glucometer (mass/volume) 165 mg/dL 70-110 PT panel in platelet poor plasma by coagulation assay - 05/22/17 14:20 Prothrombin time (PT) in platelet poor plasma by coagulation assay 13.3 s 12.2-14.7 INR in platelet poor plasma or blood by coagulation assay 1.0 0.8-1.4 Activated partial thromboplastin time (aPTT) in platelet poor plasma bycoagulation assay - 05/22/17 14:20 Activated partial thromboplastin time (aPTT) in platelet poor plasma bycoagulation assay 30 s 24-35 Comprehensive metabolic panel - 05/22/17 14:20 Serum or plasma sodium measurement (moles/volume) 140 mmol/L 135-145 Serum or plasma potassium measurement (moles/volume) 3.5 mmol/L 3.6-5.0 Serum or plasma chloride measurement (moles/volume) 96 mmol/L 98-107 Carbon dioxide 22 mmol/L 21-32 Serum or plasma anion gap determination (moles/volume) 22 mmol/L 5-14 Serum or plasma urea nitrogen measurement (mass/volume) 18 mg/dL 7-18 Serum or plasma creatinine measurement (mass/volume) 0.97 mg/dL 0.60-1.30 Serum or plasma urea nitrogen/creatinine mass ratio 19 NRG Serum or plasma creatinine measurement with calculation of estimated glomerular filtration rate 57 NRG Serum or plasma glucose measurement (mass/volume) 425 mg/dL 70-105 Serum or plasma calcium measurement (mass/volume) 10.2 mg/dL 8.5-10.1 Serum or plasma total bilirubin measurement (mass/volume) 0.6 mg/dL 0.1-1.0 Serum or plasma alkaline phosphatase measurement (enzymatic activity/volume) 82 U/L 40-136 Serum or plasma aspartate aminotransferase measurement (enzymatic activity/ volume) 13 U/L 5-34 Serum or plasma alanine aminotransferase measurement (enzymatic activity/volume ) 11 U/L 0-55 Serum or plasma protein measurement (mass/volume) 8.4 g/dL 6.4-8.2 Serum or plasma albumin measurement (mass/volume) 4.2 g/dL 3.2-4.5 Magnesium - 05/22/17 14:20 Magnesium 1.5 mg/dL 1.8-2.4 Serum or plasma troponin i.cardiac measurement (mass/volume) - 05/22/17 14:20 Serum or plasma troponin i.cardiac measurement (mass/volume) < ng/ mL <0.30 Lipase - 05/22/17 14:20 Lipase < U/L 8-78 Complete blood count (CBC) with automated white blood cell (WBC) differential - 05/22/17 14:27 Blood leukocytes automated count (number/volume) 10.3 10*3/uL 4.3-11.0 Blood erythrocytes automated count (number/volume) 4.82 10*6/uL 4.35-5.85 Venous blood hemoglobin measurement (mass/volume) 14.9 g/dL 11.5-16.0 Blood hematocrit (volume fraction) 44 % 35-52 Automated erythrocyte mean corpuscular volume 91 [foz_us] 80-99 Automated erythrocyte mean corpuscular hemoglobin (mass per erythrocyte) 31 pg 25-34 Automated erythrocyte mean corpuscular hemoglobin concentration measurement ( mass/volume) 34 g/dL 32-36 Automated erythrocyte distribution width ratio 15.1 % 10.0-14.5 Automated blood platelet count (count/volume) 435 10*3/uL 130-400 Automated blood platelet mean volume measurement 9.2 [foz_us] 7.4-10.4 Automated blood neutrophils/100 leukocytes 71 % 42-75 Automated blood lymphocytes/100 leukocytes 20 % 12-44 Blood monocytes/100 leukocytes 8 % 0-12 Automated blood eosinophils/100 leukocytes 1 % 0-10 Automated blood basophils/100 leukocytes 1 % 0-10 Blood neutrophils automated count (number/volume) 7.3 10*3 1.8-7.8 Blood lymphocytes automated count (number/volume) 2.0 10*3 1.0-4.0 Blood monocytes automated count (number/volume) 0.8 10*3 0.0-1.0 Automated eosinophil count 0.1 10*3/uL 0.0-0.3 Automated blood basophil count (count/volume) 0.1 10*3/uL 0.0-0.1 Bacterial blood culture - 05/22/17 14:45 Bacterial blood culture NG NR Bacterial blood culture - 05/22/17 15:00 Bacterial blood culture [facility] Blood lactic acid measurement (moles/volume) - 05/22/17 15:12 Blood lactic acid measurement (moles/volume) 1.17 mmol/L 0.50-2.00 Arterial blood gas measurement - 05/22/17 15:35 Blood pCO2 34 mm[Hg] 35-45 Blood pO2 70 mm[Hg] 79-93 Arterial blood bicarbonate measurement (moles/volume) 23 mmol/L 23-27 Arterial blood base excess by calculation -0.3 mmol/L - 2.5-2.5 Arterial blood oxygen saturation measurement 97 % 94-100 * Inhaled oxygen flow rate ROOM AIR NRG Arterial blood pH measurement with patient temperature correction 7.45 7.37-7.43 Arterial blood carbon dioxide, total measurement (moles/volume) 24.4 mmol/L 21.0-31.0 Body site LEFT RADIAL NRG Assessment of wrist artery patency prior to arterial puncture POSITIVE NRG Setting of ventilation mode NO NRG Measurement of body temperature 97.5 NRG Automated blood complete blood count (hemogram) panel - 01/02/18 08:45 Blood leukocytes automated count (number/volume) 6.8 10*3/uL 4.3-11.0 Blood erythrocytes automated count (number/volume) 4.46 10*6/uL 4.35-5.85 Venous blood hemoglobin measurement (mass/volume) 13.4 g/dL 11.5-16.0 Blood hematocrit (volume fraction) 39 % 35-52 Automated erythrocyte mean corpuscular volume 87 [foz_us] 80-99 Automated erythrocyte mean corpuscular hemoglobin (mass per erythrocyte) 30 pg 25-34 Automated erythrocyte mean corpuscular hemoglobin concentration measurement ( mass/volume) 34 g/dL 32-36 Automated erythrocyte distribution width ratio 16.0 % 10.0-14.5 Automated blood platelet count (count/volume) 374 10*3/uL 130-400 Automated blood platelet mean volume measurement 8.3 [foz_us] 7.4-10.4 Complete urinalysis with reflex to culture - 01/02/18 09:15 Urine color determination YELLOW NRG Urine clarity determination VERY CLOUDY NRG Urine pH measurement by test strip 5 5-9 Specific gravity of urine by test strip 1.025 1.016- 1.022 Urine protein assay by test strip, semi-quantitative 2+ NEGATIVE Urine glucose detection by automated test strip 3+ NEGATIVE Erythrocytes detection in urine sediment by light microscopy 4+ NEGATIVE Urine ketones detection by automated test [...] detection in urine sediment by light microscopy LARGE NRG Squamous epithelial cells detection in urine sediment by light microscopy 5-10 NRG Crystals detection in urine sediment by light microscopy NONE NRG Casts detection in urine sediment by light microscopy NONE NRG Mucus detection in urine sediment by light microscopy NEGATIVE NRG Complete urinalysis with reflex to culture YES NRG Bacterial urine culture - 01/02/18 09:15 Bacterial urine culture SEE COMMEN NRG COLONY COUNT . NRG FTX;REPORTABLE RML REPORTED AT 1205, 01-03-2018 NRG FREE TEXT ENTRY 2 RML SUSCEPTIBILITY REPORTED 01-04-18,0905 NR RML Sensitivity Panel - 01/02/18 09:15 Gentamicin susceptibility test by minimum inhibitory concentration < = NRG Trimethoprim/sulfamethoxazole susceptibility test by minimum inhibitoryconcentration <= NRG Levofloxacin susceptibility test by minimum inhibitory concentration <= NRG Ampicillin susceptibility test by minimum inhibitory concentration < = NRG Cefazolin susceptibility test by minimum inhibitory concentration < = NRG Ceftriaxone susceptibility test by minimum inhibitory concentration <= NRG Ciprofloxacin susceptibility test by minimum inhibitory concentration <= NRG Meropenem susceptibility test by minimum inhibitory concentration < = NRG Nitrofurantoin susceptibility test by minimum inhibitory concentration 32 NRG Amoxicillin and clavulanate potassium susc SAWYER <= NRG Complete urinalysis with reflex to culture - 01/10/18 09:12 Urine color determination YELLOW NRG Urine clarity determination CLEAR NRG Urine pH measurement by test strip 7 5-9 Specific gravity of urine by test strip 1.010 1.016- 1.022 Urine protein assay by test strip, semi-quantitative NEGATIVE NEGATIVE Urine glucose detection by automated test strip NEGATIVE NEGATIVE Erythrocytes detection in urine sediment by light microscopy 1+ NEGATIVE Urine ketones detection by automated test strip NEGATIVE NEGATIVE Urine nitrite detection by test strip [...] detection in urine sediment by light microscopy 0-2 NRG Crystals detection in urine sediment by light microscopy PRESENT NRG Casts detection in urine sediment by light microscopy NONE NRG Mucus detection in urine sediment by light microscopy NEGATIVE NRG Complete urinalysis with reflex to culture NO NRG Amorphous sediment detection in urine sediment by light microscopy FEW BLANCA URATES NRG Renal epithelial cells detection in urine sediment by light microscopy NONE NRG Encounters ACCT No. Visit Date/Time Discharge Status Pt. Type Provider Facility Loc./Unit Complaint [id number] 01/10/2018 08:55:00 01/10/2018 23:59:59 CLS Outpatient MASHA COBB MD [facility] LAB UTI [id number] 01/02/2018 08:31:00 01/02/2018 23:59:59 CLS Outpatient MASHA COBB MD [facility] CARD PERIPHERAL VASCUALR DISEASE,PREOP [id number] 07/14/2017 09:27:00 07/14/2017 23:59:59 CLS Outpatient MADISYN JACOBO MD [facility] CARD CAD I25.10 [id number] 05/22/2017 14:21:00 05/22/2017 18:14:00 DIS Emergency DILLON GILLIAM MD [facility] ER VOMITING [id number] 01/31/2017 00:19:00 01/31/2017 23:59:59 CLS Preadmit DARY DUPONT MD [facility] REHAB L HUMERUS FX [id number] 01/19/2017 12:53:00 01/30/2017 00:01:00 DIS Outpatient DARY DUPONT MD [facility] REHAB L HUMERUS FX [id number] 11/01/2016 14:12:00 11/01/2016 23:59:59 CLS Preadmit DARY DUPONT MD [facility] REHAB L HUMERUS FX; L HAND STIFFNESS [id number] 10/28/2016 12:45:00 11/01/2016 14:12:00 DIS Outpatient DARY DUPONT MD [facility] REHAB L HUMERUS FX; L HAND STIFFNESS [id number] 10/05/2016 11:33:00 10/05/2016 23:59:59 CLS Outpatient ABIMBOLA COURTNEY MD [facility] RAD ACUTE CONFUSION [id number] 09/30/2016 16:33:00 10/05/2016 00:01:00 DIS Outpatient DARY DUPONT MD [facility] REHAB L HUMERUS FX; L HAND STIFFNESS [id number] 10/03/2016 07:30:00 10/04/2016 11:30:00 DIS Inpatient SHOBHA BAUTISTA DO [facility] ICU HYPERGLYCEMIA AND CONFUSION [id number] 08/15/2016 07:31:00 08/15/2016 23:59:59 CLS Outpatient JONATHAN LEDEZMA [facility] CARD ,CAD, CAROTID ARTERY STENOSIS,GERD [id number] 06/30/2016 16:25:00 07/06/2016 16:56:00 DIS Outpatient DARY DUPONT MD [facility] REHAB L HUMERUS FX; L HAND STIFFNESS [id number] 06/08/2016 18:56:00 06/11/2016 10:56:00 DIS Inpatient MACHELLE JAIN MD [facility] 4TH UPPER GI BLEED, HYPOKALEMIA,HYPOTENSION [id number] 07/06/2015 08:25:00 07/06/2015 23:59:59 CLS Outpatient MADISYN JACOBO MD [facility] CARD ,CAD,CP SYNDROME, HYPERLIPADEMA [id number] 10/01/2014 15:39:00 10/01/2014 17:23:00 DIS Emergency ESTRELLA MESA MD [facility] ER LOW BLOOD SUGAR [id number] 07/16/2014 07:57:00 07/16/2014 23:59:59 CLS Outpatient MADISYN JACOBO MD [facility] CARD CAD,CP,HLP [id number] 10/29/2013 11:31:00 10/29/2013 23:59:59 CLS Outpatient JONATHAN LEDEZMA [facility] CARD JANNETTE,CP,GERD, HYPOTHYROIDISM [id number] 01/16/2013 06:59:00 01/16/2013 23:59:59 CLS Outpatient JONATHAN LEDEZMA [facility] RAD CP,CAD,HTN [id number] 01/08/2013 10:51:00 01/08/2013 23:59:59 CLS Outpatient JONATHAN LEDEZMA [facility] CARD CP,CAD,HTN, TOBACCOISM,FAMILY HX [id number] 06/06/2018 12:15:00 PEN Preadmit FELIX MEDRANO MD [facility] [id number] 07/06/2015 08:25:00 Document Registration [id number] 02/21/2014 15:29:00 Document Registration [id number] 10/16/2012 11:00:00 Document Registration [id number] 11/22/2011 11:13:00 Document Registration [id number] 11/17/2011 08:02:00 Document Registration [id number] 02/26/2011 03:38:00 Document Registration [id number] 02/24/2011 14:30:00 Document Registration [id number] 11/24/2010 05:32:00 Document Registration [id number] 11/23/2010 07:07:00 Document Registration [id number] 11/15/2010 07:08:00 Document Registration [id number] 11/11/2010 13:19:00 Document Registration [id number] 10/04/2010 07:45:00 Document Registration [id number] 12/10/2012 12:01:00 12/10/2012 23:59:59 CLS Outpatient
[2018-06-06 10:00] VITALS: BP 159/88
--- NOTE | 2018-06-06 10:02 | Ophthalmology Operative Report ---
YAG Capsulotomy PREOPERATIVE DIAGNOSIS: Secondary Cataract Right Eye POSTOPERATIVE DIAGNOSIS: Secondary Cataract Right Eye PROCEDURE: YAG Capsulotomy, right eye SURGEON: Usman Medrano ANESTHESIA: Topical anesthesia COMPLICATIONS: None ESTIMATED BLOOD LOSS: Minimal DESCRIPTION OF PROCEDURE: After proper informed consent was obtained, the patient's, a 67 female, right eye received one drop of Tropicamide and one drop of Tetracaine. The patient was then placed at the YAG laser and using a power of [ 3.1] millijoules and [ 26 ] bursts were used to fashion a central capsulotomy. The patient tolerated the procedure well without complications and the patient's pressure was [ 11] shortly after the laser. USMAN MEDRANO MD Jun 06, 2018 10:02
== END 2018-06-06 10:00 | disposition home or self-care (01) ==
LOC: SDC 08:20
PROVIDERS: ATTEND Specialist
DX: H26.491 Other secondary cataract, right eye (principal); I25.10 Atherosclerotic heart disease of native coronary artery without angina pectoris; E11.9 Type 2 diabetes mellitus without complications; E03.9 Hypothyroidism, unspecified; Z87.891 Personal history of nicotine dependence; Z79.4 Long term (current) use of insulin; Z79.899 Other long term (current) drug therapy

== ENCOUNTER → 2018-06-28 | Outpatient (CLI) | payer MEDICARE, OTHER | LOC: CARD 11:25 | PROVIDERS: ATTEND Internal Medicine Cardiovascular Disease | DX: I25.119 Atherosclerotic heart disease of native coronary artery with unspecified angina pectoris (principal); I08.2 Rheumatic disorders of both aortic and tricuspid valves; E78.2 Mixed hyperlipidemia; I10 Essential (primary) hypertension; I31.3 Pericardial effusion (noninflammatory) | CPT/HCPCS: 93306 ==

== ENCOUNTER → 2018-07-02 | Outpatient (CLI) | payer MEDICARE, OTHER ==
[~2018-07-02] MED LIST changes: +CATHETER FLUSH 10 ML SYR IV PRN
== END ==
LOC: CARD 07:45
PROVIDERS: ATTEND Internal Medicine Cardiovascular Disease
DX: I25.119 Atherosclerotic heart disease of native coronary artery with unspecified angina pectoris (principal); I35.0 Nonrheumatic aortic (valve) stenosis; I10 Essential (primary) hypertension; E78.2 Mixed hyperlipidemia

== ENCOUNTER → 2018-07-11 | Outpatient (CLI) | payer MEDICARE, OTHER ==
[~2018-07-11] VITALS: Ht 162.6 cm; Wt 68.0 kg
[~2018-07-11] MED LIST changes: +REGADENOSON 0.4 MG/5 ML SYR (LEXISCAN) IV ONE
[2018-07-11 13:10] VITALS: BP 124/88
--- NOTE | 2018-07-11 18:42 | STRESS TEST ---
DATE OF SERVICE: 07/11/2018 LEXISCAN MYOVIEW STRESS TEST REPORT Baseline heart rate is 85. Baseline blood pressure is 195/65. Baseline EKG, sinus rhythm with no ischemic changes. In summary, the patient was injected with 10.7 mCi of technetium-99 Myoview and the resting images were obtained. Then, the patient received 0.4 mg of Lexiscan followed by 31.1 mCi of technetium-99 Myoview. Throughout the test, there were no EKG changes. The resting and stress images were reviewed and compared in the short axis, horizontal long axis, and vertical long axis views. Review of the images showed extracardiac attenuation including her left arm that was to the side that affected the quality of the images. There was fixed defect at the inferior wall due to the extracardiac attenuation. There is no significant ischemia noted. SSS is 11, SDS 11, and TID value 1.17. On the gated images, the left ventricle appeared to be in normal size with normal contractility. Calculated ejection fraction is 70%. CONCLUSION: 1. The patient tolerated Lexiscan well. 2. Extracardiac attenuation affecting the quality of the images including her left arm that was down and the inferior wall was not well visualized. There is no significant ischemia noted on this study. 3. Normal left ventricular size with normal contractility, inferior wall is roopa normally. Calculated ejection fraction is 70%. Job ID: [id number] DocumentID: [id number] Dictated Date: 07/11/2018 14:19:23 Classification Analyst Date: 07/11/2018 18:41:37 Dictated By: MADISYN JACOBO MD
== END ==
LOC: CARD 09:57
PROVIDERS: ATTEND Internal Medicine Cardiovascular Disease
DX: I25.119 Atherosclerotic heart disease of native coronary artery with unspecified angina pectoris (principal); I35.0 Nonrheumatic aortic (valve) stenosis; I10 Essential (primary) hypertension; E78.2 Mixed hyperlipidemia
CPT/HCPCS: 78452; 93017